=== PATIENT | female | born 1940 | race Caucasian/White ===

== ENCOUNTER → 2018-02-11 09:55 | Outpatient (CLI) | payer BC, SELFPAY ==
[2018-02-11 12:22] LABS: Erythrocyte Sedimentation Rate 3 MM/HR (0-20)
[2018-02-11 12:25] LABS: Hemoglobin A1C% w Est Avg Glu 6.1 % (4.0-6.0)
[2018-02-11 12:35] LABS: Alanine Aminotransferase 45 IU/L (9-52); Albumin 4.4 g/dL (3.5-5.0); Albumin Globulin Ratio 1.3 (1.0-2.8); Alkaline Phosphatase 94 U/L (38-126); Aspartate Aminotransferase 33 IU/L (14-36); BUN Creatinine Ratio 16.7 (6-22); Bilirubin Total 0.9 mg/dL (0.2-1.3); Blood Urea Nitrogen 10 mg/dL (7-17); Calcium 9.9 mg/dL (8.4-10.2); Carbon Dioxide 28 mmol/L (22-32); Chloride 92 mmol/L (98-107); Estimated Glomerular Filt Rate > 60.0 mL/min (>60); Globulin 3.4 g/dL (1.7-4.1); Glucose 122 mg/dL (80-110); HEMOLYSIS < 15 (0-50); Potassium 5.1 mmol/L (3.4-5.1); Sodium 133 mmol/L (137-145); Total Protein 7.8 g/dL (6.3-8.2)
[2018-02-11 13:36] LABS: C-Reactive Protein Quant < 0.5 mg/dL (<1.0)
== END ==
PROVIDERS: Family Provider Internal Medicine Rheumatology; PCP Family Medicine; Visit Provider Family Medicine
DX: M31.5 Giant cell arteritis with polymyalgia rheumatica (principal); R74.0 Nonspecific elevation of levels of transaminase and lactic acid dehydrogenase [LDH]; R73.9 Hyperglycemia, unspecified
CPT/HCPCS: 36415; 80053; 83036; 85651; 86140

== ENCOUNTER → 2018-03-12 10:17 | Outpatient (CLI) | payer BC, SELFPAY ==
--- NOTE | 2018-03-12 | DI.NM.S_ITS ---
PROCEDURE: [place] RENAL FUNCTION W LASIX RADIOPHARMACEUTICAL: 10.7 mCi Tc-99m MAG3 IV and 40 mg furosemide IV. INDICATIONS: CONJENITAL OCCLUSION TECHNIQUE: The patient was hydrated orally before the examination was begun. After intravenous administration of Tc-99m MAG3, posterior abdominal radionuclide angiogram and sequential (1 minute each frame) renal images were obtained. A time-activity curve for each kidney was generated and analyzed. To evaluate for obstruction, the patient was given 40 mg furosemide via slow intravenous injection after the start of the examination. Sequential images were obtained for up to an additional 20 minutes. COMPARISON: [facility], [place], IVP (ABD & PEL WWO CONTRAST), 01/17/2016, 12:30. [place], [place], RENAL IMAGING WITH LASIX, 02/25/2017, 9:16. [place], RENAL IMAGING WITH LASIX, 08/15/2016, 12:46. [place], [place], [place] RENAL W LASIX, 05/07/2016, 10:51. FINDINGS: Perfusion: There is normal vascular flow to both kidneys. Morphology: Left kidney is normal in size and shape. Right kidney is mildly enlarged. There is dilated right renal collecting systems. The ureters and bladder fill with tracer, and appear normal. Function: The left kidney demonstrates normal cortical tracer uptake, with uimf-[id number]-[id number] activity ranging from 3 to 5 minutes. The right kidney contributes 46.5% of total renal function. The left kidney contributes 53.5% of total renal function. Lasix stimulation: There is spontaneous clearance of tracer activity from the left kidney and normal T1/2. After diuretic administration, there is mildly delayed clearance of tracer activity from the right renal collecting systems. The half-time of emptying of tracer activity from the right pelvicaliceal system is 16 minutes. The half-time of emptying from the left pelvicaliceal system is less than 10 minutes. Normal emptying half-times are less than 10 minutes; borderline ranges are from 10 to 20 minutes. IMPRESSION: 1. 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 2. Patulous right renal pelvis with borderline T1/2 (16 min), not significantly changed from the last exam. 3. Normal left renal function. 4. Right kidney contributes 46.5% of total renal function. Left kidney contributes 53.5% of total renal function. Split renal function is essentially unchanged. Dictated by: Cheryl Diaz M.D. on 03/12/2018 at 17:24 Approved by: Cheryl Diaz M.D. on 03/12/2018 at 17:39
== END ==
PROVIDERS: Family Provider Internal Medicine Rheumatology; PCP Family Medicine; Visit Provider Specialist
DX: N13.30 Unspecified hydronephrosis (principal)
CPT/HCPCS: 78708; A9562

== ENCOUNTER → 2018-04-27 11:11 | Outpatient (CLI) | payer BC, SELFPAY ==
[2018-04-27 12:27] LABS: Add Manual Diff / Slide Review NO; Basophils Percent Auto 0.9 % (0-2); Eosinophils Percent Auto 2.9 % (2-4); Hemoglobin 14.1 g/dL (12.0-16.0); Lymphocytes Percent Auto 19.1 % (25-40); Mean Corpuscular HGB Conc 33.6 % (30-36); Mean Corpuscular Hemoglobin 30.6 PG (26-34); Mean Corpuscular Volume 91.3 fL (80-100); Monocytes Percent Auto 12.6 % (3-14); Neutrophils Absolute Auto 4900 /uL (3000-5900); Neutrophils Percent Auto 64.5 % (50-75); Platelet Count 411 X10^3/uL (150-400); Red Cell Distribution Width 14.1 % (11.6-14.8); White Blood Cell Count 7.5 X10^3/uL (4.5-11.0)
== END ==
PROVIDERS: Family Provider Internal Medicine Rheumatology; PCP Family Medicine; Visit Provider Internal Medicine Gastroenterology
DX: K92.1 Melena (principal); R10.13 Epigastric pain
CPT/HCPCS: 36415; 85025

== ENCOUNTER → 2018-05-04 10:33 | Outpatient (CLI) | payer BC, SELFPAY ==
--- NOTE | 2018-05-04 10:35 | DI.ECHO.S_ITS ---
[facility] +---------+ : : [address] : : : : [place], : : : : [place] [address] : : : : Phone: [phone] + [facility] Echocardiogram Report + + :Name: MARILEE PARKS Study Date: 05/04/2018 Height: 60 in : :[facility] Weight: 146 lb : : Gender: Female BSA: 1.6 m2 : :: 1940 Age: 78 yrs BP: 160/68 mmHg: :Reason For Study: Murmur : : Performed By: Halley Araujo : :Referring: BO TORRES : + + Interpretation Summary The ejection fraction is estimated to be 60-65%. There is mild mitral regurgitation. The aortic valve is slightly calcified. There is trace aortic regurgitation. Procedure: A two-dimensional transthoracic echocardiogram with color flow and Doppler was performed. The study quality was technically adequate. There is no prior echocardiogram noted for this patient. The patient was in normal sinus rhythm during the exam. The patient had occasional PVCs during the exam. Left Ventricle: Proximal septal thickening is noted. There is no ventricular septal defect visualized. The ejection fraction is estimated to be 60-65%. There are no focal wall motion abnormalities. Right Ventricle: The right ventricle is normal in size and function. Atria: The left atrium is mildly dilated. Right atrial size is normal. There is no Doppler evidence for an interatrial shunt. Mitral Valve: There is mild mitral annular calcification. There is mild mitral regurgitation. Aortic Valve: The aortic valve is trileaflet. The aortic valve opens well. The aortic valve is slightly calcified. There is no hemodynamically significant valvular aortic stenosis. There is trace aortic regurgitation. Tricuspid Valve: The tricuspid valve is normal in structure and function. There is a trace or physiologic amount of tricuspid regurgitation. Pulmonic Valve: The pulmonic valve is not well seen, but is grossly normal. There is mild pulmonic regurgitation. Great Vessels: The aortic root is normal size. The ascending aorta is normal in size. The aortic arch is normal in size. The IVC is of normal diameter and collapses greater than 50% with a sniff. This suggests a low right atrial pressure of 3 mm Hg. Pericardium/ Pleura There is no pericardial effusion. MMode/2D Measurements & Calculations LVIDd: 3.8 cm AoV Openin.0 cm LVIDs: 2.4 cm LVOT diam: 2.0 cm IVSd: 1.0 cm Ao root diam: 3.1 cm LVPWd: 1.0 cm Aortic Jxn: 2.2 cm LV wyatt. diameter/BSA (cm/m^2): 2.3 asc Aorta Diam: 2.9 cm LV sys. diameter/BSA (cm/m^2): 1.5 Ao Arch Diam (Prox Trans): 2.3 cm FS: 37.6 % EPSS: 0.33 cm LA A2 area: 16.7 cm2 RA long axis: 3.5 cm LA A4 area: 18.8 cm2 RA area: 9.0 cm2 LA length (vol): 4.6 cm RA vol: 19.3 ml LA vol: 57.2 ml RA : 11.8 ml/m2 LA vol index: 35.0 ml/m2 RVD1 (basal): 3.3 cm IVC diam: 0.99 cm RVD2 (mid): 2.5 cm TAPSE: 2.5 cm Doppler Measurements & Calculations Ao V2 max: 162.4 cm/sec LVOT Max Nasim: 106.9 cm/sec Ao V2 mean: 114.7 cm/sec LV V1 max P.6 mmHg Ao V2 VTI: 38.8 cm LV V1 VTI: 23.5 cm Ao max P.5 mmHg Ao mean P.7 mmHg ARIANNE(I,D): 2.0 cm2 MV E max nasim: 80.4 cm/sec ARIANNE(V,D): 2.2 cm2 MV A max nasim: 105.1 cm/sec ARIANNE indexed to BSA (cm^2/m^2): 1.2 MV E/A: 0.76 sev ratio: 0.60 Med Peak E' Nasim: 4.6 cm/sec E/E' med: 17.4 Lat Peak E' Nasim: 7.6 cm/sec E/E' lat: 10.6 E/e' average: 14.0 MV dec time: 0.27 sec TR max nasim: 238.7 cm/sec MV P1/2t: 80.5 msec TR max P.8 mmHg MVA(P1/2t): 2.7 cm2 PA V2 max: 77.7 cm/sec MR PISA radius: 0.50 cm PA V2 mean: 53.4 cm/sec PA mean P.3 mmHg PA Accel Time: 0.10 sec Reading Physician:01:46 PM
== END ==
PROVIDERS: PCP Family Medicine; Visit Provider Family Medicine
DX: I34.0 Nonrheumatic mitral (valve) insufficiency (principal); R01.1 Cardiac murmur, unspecified; I37.1 Nonrheumatic pulmonary valve insufficiency
CPT/HCPCS: 93306

== ENCOUNTER 2018-05-12 10:15 | Emergency (ER) | payer BC, SELFPAY ==
[2018-05-12 10:20] VITALS: BP 147/67; PULSE 72; RESP 16; TEMP 36.8; O2SAT 99
--- NOTE | 2018-05-12 12:03 | ED.FALL ---
HPI - Fall <Lizzy Dixon PA-C - Last Filed: 05/12/18 19:31> General Chief Complaint: Fall Stated Complaint: POSSIBLE CONCUSSION, DR TORRES WANTS CHECKED Time Seen by Provider: 05/12/18 11:46 Source: patient and old records reviewed Mode of arrival: ambulatory Limitations: no limitations History of Present Illness HPI Narrative: This 78-year-old female comes in on the advice of her PCP today due to fall, with possible concussion and facial injuries. This occurred about 24 hr ago. She states that she pivoted to avoid her dog and pitched forward, tripping on to her wood floor. She fell onto her nose, face, and frontal area, also hit her knees. She states that she was wearing her glasses, which did not break. She states that she did not pass out. She states she has had a mild headache since last night and minimal nausea, no vomiting. She denies any vision change. She states that her nose is sore and congested, no pain in her jaw or other facial bones, no difficulty chewing. She thinks nasal congestion is not new. She states that she does not have pain in her neck. She denies any weakness or paresthesia in her extremities. She denies any bowel or bladder changes or dysfunction. She states that her knees are a little bit bruised and sore, but has been able to walk just a little more slowly. Related Data Home Medications Medication Instructions Recorded Confirmed aspirin 81 mg tablet,delayed 81 mg PO DAILY 03/01/18 04/27/18 release calcium citrate PO 03/01/18 04/27/18 cholecalciferol (vitamin D3) 1,000 1,000 unit PO DAILY 03/01/18 04/27/18 unit capsule coq10 PO 03/01/18 04/27/18 krill oil 500 mg capsule mg PO cap 03/01/18 04/27/18 lisinopril 10 mg tablet 10 mg PO DAILY 03/01/18 04/27/18 multivitamin PO 03/01/18 04/27/18 citalopram 20 mg tablet 20 mg PO DAILY 04/27/18 04/27/18 Previous Rx's Medication Instructions Recorded omeprazole 40 mg OR QDAY #90 cap 12/04/17 amlodipine 10 mg PO QDAY #90 tab 12/22/17 levothyroxine 137 mcg capsule 137 mcg PO DAILY #90 cap 04/20/18 metoprolol tartrate 25 mg tablet 12.5 mg PO BID #90 tab 04/20/18 Allergies Allergy/AdvReac Type Severity Reaction Status Date / Time shellfish derived Allergy Severe MUSSELS - Verified 04/27/18 10:42 ANAPHYLAXIS amoxicillin Allergy Mild RASH, Verified 04/27/18 10:42 DIARRHEA Review of Systems <Lizzy Dixon PA-C - Last Filed: 05/12/18 19:31> Review of Systems All systems reviewed & are unremarkable except as noted in HPI and below Exam <Lizzy Dixon PA-C - Last Filed: 05/12/18 19:31> Narrative Exam Narrative: GENERAL APPEARANCE: Patient sitting comfortably, in no distress. HEENT: No scalp hematoma, PERRL, EOMI, normal ear canals, oral and nasal mucosa. Nares are patent NECK: Supple LUNGS: Clear to auscultation bilaterally. HEART: Rate and rhythm regular with I/ OLEG, normal S1 and S2, no S3 or S4. ABDOMEN: Soft, NT, ND NEUROLOGIC: Alert and oriented, normal speech, and coordination. MUSCULOSKELETAL: No point tenderness over the cervical spine or paraspinal musculature. Patient is in C-collar. She has full range of motion of the upper extremities. She has trace effusion over the right knee, mild tenderness over both knees especially over ecchymoses, no point tenderness over the joint line. Full range of motion bilaterally. DERMATOLOGIC: Bilateral periorbital ecchymoses and a faint patch of ecchymoses near the right lutheran as well as over the mid nasal bridge where there is moderate edema. Faint right knee ecchymoses laterally and a small patch on the left Initial Vital Signs Initial Vital Signs: Vital Signs Temperature 98.2 F 05/12/18 10:20 Pulse Rate 72 05/12/18 10:20 Respiratory Rate 16 05/12/18 10:20 Blood Pressure 147/67 H 05/12/18 10:20 Pulse Oximetry 99 05/12/18 10:20 <Mitra Apodaca DO - Last Filed: 05/13/18 07:54> Initial Vital Signs Initial Vital Signs: Vital Signs Temperature 98.2 F 05/12/18 10:20 Pulse Rate 72 05/12/18 10:20 Respiratory Rate 16 05/12/18 10:20 Blood Pressure 147/67 H 05/12/18 10:20 Pulse Oximetry 99 05/12/18 10:20 Course <Lizzy Dixon PA-C - Last Filed: 05/12/18 19:31> Orders Ordered: ED Orders 05/12/18 12:04 CT cervical spine wo con Stat CT facial bones wo con Stat CT head/brain wo con Stat Vital Signs - 8 hr 05/12/18 12:38 05/12/18 13:10 Pulse Rate 72 78 Respiratory Rate 15 Blood Pressure 129/51 H Blood Pressure [Left Arm] 141/55 H Pulse Oximetry 97 <Mitra Apodaca DO - Last Filed: 05/13/18 07:54> Orders Ordered: ED Orders 05/12/18 12:04 CT cervical spine wo con Stat CT facial bones wo con Stat CT head/brain wo con Stat Vital Signs - 8 hr 05/12/18 12:38 05/12/18 13:10 Pulse Rate 72 78 Respiratory Rate 15 Blood Pressure 129/51 H Blood Pressure [Left Arm] 141/55 H Pulse Oximetry 97 MDM - Fall <Lizzy Dixon PA-C - Last Filed: 05/12/18 19:31> Imaging Data CT scan - head: Radiologist's impression: [place] [address] CT Scan Report Signed Patient: Kimberly Tony MR#: [id number] : 1940 Acct:[id number] Age/Sex: 78 / F Date of Service: 05/12/18 Loc: ED Accession Number: [id number] Procedure: CT head/brain wo con Ordering Provider: Mitra Apodaca D.O. PROCEDURE: CT HEAD/BRAIN WO CON INDICATIONS: fall forward yesterday. Bilateral black eyes. Headache TECHNIQUE: Noncontrast 4.5 mm thick angled axial sections acquired from the foramen magnum to the vertex, with coronal and sagittal reformats. For radiation dose reduction, the following was used: automated exposure control, adjustment of mA and/or kV according to patient size. COMPARISON: [facility], MR, MR BRAIN WO CON, 09/03/2015, 14:50. FINDINGS: Image quality: Excellent. CSF spaces: Basal cisterns are patent. No extra-axial fluid collections. The ventricles are symmetric in size and shape. Brain: No intracranial bleeds or masses. There is cerebral volume loss for age, with resultant ventricular and sulcal prominence. There are periventricular and deep white matter chronic small vessel ischemic changes. There is intracranial internal carotid artery atherosclerosis. Skull and face: Calvarium appears intact, without suspicious lesions. Minimally displaced left nasal bone fracture noted. Sinuses: Visualized sinuses and mastoids are clear. IMPRESSION: 1. No acute intracranial disease process. 2. Minimally displaced left nasal bone fracture. Dictated by: Mar Cooper MD, PhD on 05/12/2018 at 12:25 Approved by: Mar Cooper MD, PhD on 05/12/2018 at 12:27 cervical: Radiologist's impression: CLOSE Head CT (Signed) Mar Cooper - 05/12/[address] (Signed) Mar Cooper - 05/12/18 Echocardiogram Ultrasound (Addendum) Lalo Hall - 05/04/18 Renal Scan Nuclear Medicine (Signed) Mirta Diaz - 03/12/18 [place] [address] CT Scan Report Signed Patient: Kimberly Tony MR#: [id number] : 1940 Acct:[id number] Age/Sex: 78 / F Date of Service: 05/12/18 Loc: ED Accession Number: [id number] Procedure: CT cervical spine wo con Ordering Provider: Mitra Apodaca D.O. PROCEDURE: CT CERVICAL SPINE WO CON INDICATIONS: fall forward hit face TECHNIQUE: Noncontrast 3 mm thick sections acquired from the skull base to the T4 level. Sagittal and coronal reformats were then constructed. For radiation dose reduction, the following was used: automated exposure control, adjustment of mA and/or kV according to patient size. COMPARISON: None. FINDINGS: Image quality: Excellent. Bones: No fractures or dislocations. Visualized superior ribs are intact. Spine degenerative disc disease and facet arthropathy. Soft tissues: Prevertebral soft tissues are normal in thickness. No paravertebral hematomas. No apical pneumothoraces. Vascular atherosclerotic calcifications are noted. IMPRESSION: No fracture. No acute osseous lesion. If symptoms and/or clinical suspicion for pathology persists, evaluation with MRI may be helpful for further assessment. Dictated by: Mar Cooper MD, PhD on 05/12/2018 at 12:28 Approved by: Mar Cooper MD, PhD on 05/12/2018 at 12:33 face: Radiologist's impression: View Report History [address] [address] [address] Scan Report Signed Patient: Kimberly Tony MR#: [id number] : 1940 Acct:[id number] Age/Sex: 78 / F Date of Service: 05/12/18 Loc: ED Accession Number: [id number] Procedure: CT facial bones wo con Ordering Provider: Mitra Apodaca D.O. PROCEDURE: CT FACIAL BONES WO CON INDICATIONS: fall forward hit face yesterday. Bilateral black eyes TECHNIQUE: Noncontrast 2.5 mm thick axial images acquired from the mandible through the frontal sinuses, with coronal and sagittal reformatting. For radiation dose reduction, the following was used: automated exposure control, adjustment of mA and/or kV according to patient size. COMPARISON: None. FINDINGS: Image quality: Excellent. Bones and teeth: Orbital hoskins are intact. Sinus hoskins show no fracture or deformity. Minimally displaced bilateral nasal bone fractures. Visualized portions of the mandible demonstrate no fractures or subluxation. Zygomatic arches are intact. Pterygoid plates are intact. Visualized portions of the skull base and auditory canals are intact. Cervical spine degenerative changes and facet arthropathy noted. Sinuses: Paranasal sinuses are aerated, without fluid levels, mucosal thickening, or mucoceles. Mastoid air cells are aerated. Soft tissues: No edema, masses, or fluid collections. No enlarged lymph nodes. No soft tissue lacerations or debris. Vascular: Visualized vascular structures appear normal in the absence of contrast. Bony vascular foramina and canals are intact. IMPRESSION: Bilateral nasal bone fractures. No orbit wall fracture. Dictated by: Mar Cooper MD, PhD on 05/12/2018 at 12:34 Approved by: Mar Cooper MD, PhD on 05/12/2018 at 12:45 Discharge Plan Departure Patient Disposition: Home Clinical Impression: Contusion of head, Contusion of face, Closed fracture nasal bone Discharge Date/Time: 05/12/18 13:11 Interventions: ED Discharge Assessment Last Done: 05/12/18 13:10 Instructions: DI for Concussion, DI for Nose Fracture Activity Restrictions/Additional Instructions: You do have fractures in your nasal bones, so please call [facility] (Dr. Rodriguez or 1 of his partners) here in town to schedule a follow-up visit. They may want to wait a few days to assess when the swelling goes down. There were not any other fractures or acute problems found on your CT scan, however you should return immediately as we talked about if you have any acutely worsening symptoms such as increased headache, vomiting, or new vision changes or mentation changes. I have given you instructions for concussion as you may have a mild one even though you did not lose consciousness when you fell. Prescriptions: No Action omeprazole 40 MG capsule,delayed release(DR/EC) 40 mg OR QDAY Qty: 90 RF: 2 amlodipine 10 MG tablet 10 mg PO QDAY Qty: 90 RF: 1 levothyroxine 137 mcg capsule 137 mcg PO DAILY Qty: 90 RF: 2 metoprolol tartrate 25 mg tablet 12.5 mg PO BID Qty: 90 RF: 3 multivitamin PO RF: 0 krill oil 500 mg capsule PO RF: 0 calcium citrate PO RF: 0 lisinopril 10 mg tablet 10 mg PO DAILY RF: 0 cholecalciferol (vitamin D3) 1,000 unit capsule 1,000 unit PO DAILY RF: 0 coq10 PO RF: 0 aspirin [Adult Low Dose Aspirin] 81 mg tablet,delayed release (DR/EC) 81 mg PO DAILY RF: 0 citalopram 20 mg tablet 20 mg PO DAILY RF: 0 Referrals: Bao Rodriguez MD [Physician] - Haley Torres DO [Primary Care Provider] - <Mitra Apodaca DO - Last Filed: 05/13/18 07:54> Cosign ED Attending Cosignature Attestation: I was immediately available in the department for consultation. Documentation has been reviewed. I agree with assessment and plan.
--- NOTE | 2018-05-12 12:19 | ED_ITS ---
HPI - Fall <Lizzy Dixon PA-C - Last Filed: 05/12/18 19:31> General Chief Complaint: Fall Stated Complaint: POSSIBLE CONCUSSION, DR TORRES WANTS CHECKED Time Seen by Provider: 05/12/18 11:46 Source: patient and old records reviewed Mode of arrival: ambulatory Limitations: no limitations History of Present Illness HPI Narrative: This 78-year-old female comes in on the advice of her PCP today due to fall, with possible concussion and facial injuries. This occurred about 24 hr ago. She states that she pivoted to avoid her dog and pitched forward, tripping on to her wood floor. She fell onto her nose, face, and frontal area, also hit her knees. She states that she was wearing her glasses, which did not break. She states that she did not pass out. She states she has had a mild headache since last night and minimal nausea, no vomiting. She denies any vision change. She states that her nose is sore and congested, no pain in her jaw or other facial bones, no difficulty chewing. She thinks nasal congestion is not new. She states that she does not have pain in her neck. She denies any weakness or paresthesia in her extremities. She denies any bowel or bladder changes or dysfunction. She states that her knees are a little bit bruised and sore, but has been able to walk just a little more slowly. Related Data Home Medications Medication Instructions Recorded Confirmed aspirin 81 mg tablet,delayed 81 mg PO DAILY 03/01/18 04/27/18 release calcium citrate PO 03/01/18 04/27/18 cholecalciferol (vitamin D3) 1,000 1,000 unit PO DAILY 03/01/18 04/27/18 unit capsule coq10 PO 03/01/18 04/27/18 krill oil 500 mg capsule mg PO cap 03/01/18 04/27/18 lisinopril 10 mg tablet 10 mg PO DAILY 03/01/18 04/27/18 multivitamin PO 03/01/18 04/27/18 citalopram 20 mg tablet 20 mg PO DAILY 04/27/18 04/27/18 Previous Rx's Medication Instructions Recorded omeprazole 40 mg OR QDAY #90 cap 12/04/17 amlodipine 10 mg PO QDAY #90 tab 12/22/17 levothyroxine 137 mcg capsule 137 mcg PO DAILY #90 cap 04/20/18 metoprolol tartrate 25 mg tablet 12.5 mg PO BID #90 tab 04/20/18 Allergies Allergy/AdvReac Type Severity Reaction Status Date / Time shellfish derived Allergy Severe MUSSELS - Verified 04/27/18 10:42 ANAPHYLAXIS amoxicillin Allergy Mild RASH, Verified 04/27/18 10:42 DIARRHEA Review of Systems <Lizzy Dixon PA-C - Last Filed: 05/12/18 19:31> Review of Systems All systems reviewed & are unremarkable except as noted in HPI and below Exam <Lizzy Dixon PA-C - Last Filed: 05/12/18 19:31> Narrative Exam Narrative: GENERAL APPEARANCE: Patient sitting comfortably, in no distress. HEENT: No scalp hematoma, PERRL, EOMI, normal ear canals, oral and nasal mucosa. Nares are patent NECK: Supple LUNGS: Clear to auscultation bilaterally. HEART: Rate and rhythm regular with I/ OLEG, normal S1 and S2, no S3 or S4. ABDOMEN: Soft, NT, ND NEUROLOGIC: Alert and oriented, normal speech, and coordination. MUSCULOSKELETAL: No point tenderness over the cervical spine or paraspinal musculature. Patient is in C-collar. She has full range of motion of the upper extremities. She has trace effusion over the right knee, mild tenderness over both knees especially over ecchymoses, no point tenderness over the joint line. Full range of motion bilaterally. DERMATOLOGIC: Bilateral periorbital ecchymoses and a faint patch of ecchymoses near the right christianity as well as over the mid nasal bridge where there is moderate edema. Faint right knee ecchymoses laterally and a small patch on the left Initial Vital Signs Initial Vital Signs: Vital Signs Temperature 98.2 F 05/12/18 10:20 Pulse Rate 72 05/12/18 10:20 Respiratory Rate 16 05/12/18 10:20 Blood Pressure 147/67 H 05/12/18 10:20 Pulse Oximetry 99 05/12/18 10:20 <Mitra Apodaca DO - Last Filed: 05/13/18 07:54> Initial Vital Signs Initial Vital Signs: Vital Signs Temperature 98.2 F 05/12/18 10:20 Pulse Rate 72 05/12/18 10:20 Respiratory Rate 16 05/12/18 10:20 Blood Pressure 147/67 H 05/12/18 10:20 Pulse Oximetry 99 05/12/18 10:20 Course <Lizzy Dixon PA-C - Last Filed: 05/12/18 19:31> Orders Ordered: ED Orders 05/12/18 12:04 CT cervical spine wo con Stat CT facial bones wo con Stat CT head/brain wo con Stat Vital Signs - 8 hr 05/12/18 12:38 05/12/18 13:10 Pulse Rate 72 78 Respiratory Rate 15 Blood Pressure 129/51 H Blood Pressure [Left Arm] 141/55 H Pulse Oximetry 97 <Mitra Apodaca DO - Last Filed: 05/13/18 07:54> Orders Ordered: ED Orders 05/12/18 12:04 CT cervical spine wo con Stat CT facial bones wo con Stat CT head/brain wo con Stat Vital Signs - 8 hr 05/12/18 12:38 05/12/18 13:10 Pulse Rate 72 78 Respiratory Rate 15 Blood Pressure 129/51 H Blood Pressure [Left Arm] 141/55 H Pulse Oximetry 97 MDM - Fall <Lizzy Dixon PA-C - Last Filed: 05/12/18 19:31> Imaging Data CT scan - head: Radiologist's impression: [place] [address] CT Scan Report Signed Patient: Kimberly Tnoy MR#: [id number] : 1940 Acct:[id number] Age/Sex: 78 / F Date of Service: 05/12/18 Loc: ED Accession Number: [id number] Procedure: CT head/brain wo con Ordering Provider: Mitra Apodaca D.O. PROCEDURE: CT HEAD/BRAIN WO CON INDICATIONS: fall forward yesterday. Bilateral black eyes. Headache TECHNIQUE: Noncontrast 4.5 mm thick angled axial sections acquired from the foramen magnum to the vertex, with coronal and sagittal reformats. For radiation dose reduction, the following was used: automated exposure control, adjustment of mA and/or kV according to patient size. COMPARISON: [facility], MR, MR BRAIN WO CON, 09/03/2015, 14:50. FINDINGS: Image quality: Excellent. CSF spaces: Basal cisterns are patent. No extra-axial fluid collections. The ventricles are symmetric in size and shape. Brain: No intracranial bleeds or masses. There is cerebral volume loss for age , with resultant ventricular and sulcal prominence. There are periventricular and deep white matter chronic small vessel ischemic changes. There is intracranial internal carotid artery atherosclerosis. Skull and face: Calvarium appears intact, without suspicious lesions. Minimally displaced left nasal bone fracture noted. Sinuses: Visualized sinuses and mastoids are clear. IMPRESSION: 1. No acute intracranial disease process. 2. Minimally displaced left nasal bone fracture. Dictated by: Mar Cooper MD, PhD on 05/12/2018 at 12:25 Approved by: Mar Cooper MD, PhD on 05/12/2018 at 12:27 cervical: Radiologist's impression: CLOSE Head CT (Signed) Mar Cooper - 05/12/[address] (Signed) Mar Cooper - 05/12/18 Echocardiogram Ultrasound (Addendum) Lalo Hall - 05/04/18 Renal Scan Nuclear Medicine (Signed) Mirta Diaz - 03/12/18 View [place] [address] CT Scan Report Signed Patient: Kimberly Tony MR#: [id number] : 1940 Acct:[id number] Age/Sex: 78 / F Date of Service: 05/12/18 Loc: ED Accession Number: [id number] Procedure: CT cervical spine wo con Ordering Provider: Mitra Apodaca D.O. PROCEDURE: CT CERVICAL SPINE WO CON INDICATIONS: fall forward hit face TECHNIQUE: Noncontrast 3 mm thick sections acquired from the skull base to the T4 level. Sagittal and coronal reformats were then constructed. For radiation dose reduction, the following was used: automated exposure control, adjustment of mA and/or kV according to patient size. COMPARISON: None. FINDINGS: Image quality: Excellent. Bones: No fractures or dislocations. Visualized superior ribs are intact. Spine degenerative disc disease and facet arthropathy. Soft tissues: Prevertebral soft tissues are normal in thickness. No paravertebral hematomas. No apical pneumothoraces. Vascular atherosclerotic calcifications are noted. IMPRESSION: No fracture. No acute osseous lesion. If symptoms and/or clinical suspicion for pathology persists, evaluation with MRI may be helpful for further assessment. Dictated by: Mar Cooper MD, PhD on 05/12/2018 at 12:28 Approved by: Mar Cooper MD, PhD on 05/12/2018 at 12:33 face: Radiologist's impression: View Report History [address] [address] [address] Scan Report Signed Patient: Kimberly Tony MR#: [id number] : 1940 Acct:[id number] Age/Sex: 78 / F Date of Service: 05/12/18 Loc: ED Accession Number: [id number] Procedure: CT facial bones wo con Ordering Provider: Mitra Apodaca D.O. PROCEDURE: CT FACIAL BONES WO CON INDICATIONS: fall forward hit face yesterday. Bilateral black eyes TECHNIQUE: Noncontrast 2.5 mm thick axial images acquired from the mandible through the frontal sinuses, with coronal and sagittal reformatting. For radiation dose reduction, the following was used: automated exposure control, adjustment of mA and/or kV according to patient size. COMPARISON: None. FINDINGS: Image quality: Excellent. Bones and teeth: Orbital hoskins are intact. Sinus hoskins show no fracture or deformity. Minimally displaced bilateral nasal bone fractures. Visualized portions of the mandible demonstrate no fractures or subluxation. Zygomatic arches are intact. Pterygoid plates are intact. Visualized portions of the skull base and auditory canals are intact. Cervical spine degenerative changes and facet arthropathy noted. Sinuses: Paranasal sinuses are aerated, without fluid levels, mucosal thickening, or mucoceles. Mastoid air cells are aerated. Soft tissues: No edema, masses, or fluid collections. No enlarged lymph nodes. No soft tissue lacerations or debris. Vascular: Visualized vascular structures appear normal in the absence of contrast. Bony vascular foramina and canals are intact. IMPRESSION: Bilateral nasal bone fractures. No orbit wall fracture. Dictated by: Mar Cooper MD, PhD on 05/12/2018 at 12:34 Approved by: Mar Cooper MD, PhD on 05/12/2018 at 12:45 Discharge Plan Departure Patient Disposition: Home Clinical Impression: Contusion of head, Contusion of face, Closed fracture nasal bone Discharge Date/Time: 05/12/18 13:11 Interventions: ED Discharge Assessment Last Done: 05/12/18 13:10 Instructions: DI for Concussion, DI for Nose Fracture Activity Restrictions/Additional Instructions: You do have fractures in your nasal bones, so please call [facility] (Dr. Rodriguez or 1 of his partners) here in town to schedule a follow-up visit. They may want to wait a few days to assess when the swelling goes down. There were not any other fractures or acute problems found on your CT scan, however you should return immediately as we talked about if you have any acutely worsening symptoms such as increased headache, vomiting, or new vision changes or mentation changes. I have given you instructions for concussion as you may have a mild one even though you did not lose consciousness when you fell. Prescriptions: No Action omeprazole 40 MG capsule,delayed release(DR/EC) 40 mg OR QDAY Qty: 90 RF: 2 amlodipine 10 MG tablet 10 mg PO QDAY Qty: 90 RF: 1 levothyroxine 137 mcg capsule 137 mcg PO DAILY Qty: 90 RF: 2 metoprolol tartrate 25 mg tablet 12.5 mg PO BID Qty: 90 RF: 3 multivitamin PO RF: 0 krill oil 500 mg capsule PO RF: 0 calcium citrate PO RF: 0 lisinopril 10 mg tablet 10 mg PO DAILY RF: 0 cholecalciferol (vitamin D3) 1,000 unit capsule 1,000 unit PO DAILY RF: 0 coq10 PO RF: 0 aspirin [Adult Low Dose Aspirin] 81 mg tablet,delayed release (DR/EC) 81 mg PO DAILY RF: 0 citalopram 20 mg tablet 20 mg PO DAILY RF: 0 Referrals: Bao Rodriguez MD [Physician] - Haley Torres DO [Primary Care Provider] - <Mitra Apodaca DO - Last Filed: 05/13/18 07:54> Cosign ED Attending Cosignature Attestation: I was immediately available in the department for consultation. Documentation has been reviewed. I agree with assessment and plan.
[2018-05-12 12:38] VITALS: BP 141/55; PULSE 72
[2018-05-12 13:10] VITALS: BP 129/51; PULSE 78; RESP 15; O2SAT 97
== END 2018-05-12 13:11 | disposition home or self-care (01) ==
PROVIDERS: Emergency Provider Internal Medicine; PCP Family Medicine
DX: S02.2XXA Fracture of nasal bones, initial encounter for closed fracture (principal); S00.93XA Contusion of unspecified part of head, initial encounter; S00.83XA Contusion of other part of head, initial encounter; W01.0XXA Fall on same level from slipping, tripping and stumbling without subsequent striking against object, initial encounter
CPT/HCPCS: 70450; 70486; 72125; 99282; 99284

== ENCOUNTER → 2018-06-12 11:49 | Outpatient (CLI) | payer BC, SELFPAY ==
[2018-06-12 12:12] LABS: Appearance Urine UA TURBID; Bilirubin Urine UA NEGATIVE (NEGATIVE); Color Urine UA YELLOW; Glucose Urine UA NEGATIVE (Normal); Ketones Urine UA TRACE (NEGATIVE); Leukocyte Esterase Urine UA 2+ (NEGATIVE); Nitrite Urine UA POSITIVE (Negative); Occult Blood Urine UA 3+ (Negative); Protein Urine UA 2+ (Negative); Urobilinogen Urine UA 0.2 E.U./dL (0.2)
[2018-06-12 14:52] LABS: RBC Urine 1-5/HPF (0-5/HPF)
[2018-06-12 14:53] LABS: Bacteria Urine Many (>30); Culture Indicated Urine Specimen Cultured; Squamous Epithelial Cell Urine 0-1 /HPF; WBC Urine >100/HPF (0-5/HPF)
== END ==
PROVIDERS: PCP Family Medicine; Visit Provider Specialist
DX: N39.0 Urinary tract infection, site not specified (principal)
CPT/HCPCS: 81001; 87077; 87086; 87186

== ENCOUNTER → 2019-02-16 10:53 | Outpatient (CLI) | payer BC, SELFPAY ==
[2019-02-20 18:39] LABS: Fecal Immunochemical Test NOT DETECTED (NOT DETECTED)
== END ==
PROVIDERS: PCP Family Medicine; Visit Provider Family Medicine
DX: Z12.11 Encounter for screening for malignant neoplasm of colon (principal)
CPT/HCPCS: 82274

== ENCOUNTER → 2019-03-02 09:43 | Outpatient (CLI) | payer BC, SELFPAY ==
--- NOTE | 2019-03-02 | DI.MG.S_ITS ---
BILATERAL DIGITAL SCREENING MAMMOGRAM 3D/2D WITH CAD: 03/02/2019 CLINICAL: Routine screening. Comparison is made to exams dated: 12/26/2017 mammogram, 04/10/2017 mammogram, 02/18/2016 mammogram, 05/14/2015 mammogram, 05/12/2014 mammogram, and 05/04/2013 mammogram - [facility]. There are scattered fibroglandular elements in both breasts. Current study was also evaluated with a Computer Aided Detection (CAD) system. No significant masses, calcifications, or other findings are seen in either breast. There has been no significant interval change. IMPRESSION: NEGATIVE There is no mammographic evidence of malignancy. A 1 year screening mammogram is recommended. This exam was interpreted at Station ID: [id number]. NOTE: For mammograms, a report in lay terms will be sent to the patient. Approximately 15% of breast malignancies will not be visualized mammographically. In the management of a palpable breast mass, a negative mammogram must not discourage biopsy of a clinically suspicious lesion. Electronically Signed By: Mathew conklin/dulce:03/02/2019 10:27:36 letter sent: Normal Exam ACR BI-RADS Category 1: Negative [id number]
== END ==
PROVIDERS: PCP Family Medicine; Visit Provider Family Medicine
DX: Z12.31 Encounter for screening mammogram for malignant neoplasm of breast (principal)
CPT/HCPCS: 77063; 77067

== ENCOUNTER → 2019-03-07 10:00 | Outpatient (CLI) | payer BC, SELFPAY ==
[2019-03-07 10:58] LABS: Add Manual Diff / Slide Review NO; Basophils Absolute Auto 100 /uL (0-100); Basophils Percent Auto 1.1 % (0-2); Eosinophils Absolute Auto 300 /uL (0-450); Eosinophils Percent Auto 5.6 % (2-4); Hematocrit 42.6 % (36-46); Hemoglobin 14.2 g/dL (12.0-16.0); Lymphocytes Absolute Auto 1000 /uL (1100-4500); Lymphocytes Percent Auto 16.3 % (25-40); Mean Corpuscular HGB Conc 33.4 % (30-36); Mean Corpuscular Hemoglobin 30.1 PG (26-34); Mean Corpuscular Volume 89.9 fL (80-100); Monocytes Absolute Auto 900 /uL (0-900); Monocytes Percent Auto 14.8 % (3-14); Neutrophils Absolute Auto 3800 /uL (1500-7000); Neutrophils Percent Auto 62.2 % (50-75); Platelet Count 379 X10^3/uL (150-400); Red Blood Cell Count 4.73 X10^6/uL (4.0-5.2); Red Cell Distribution Width 14.1 % (11.6-14.8); White Blood Cell Count 6.1 X10^3/uL (4.5-11.0)
[2019-03-07 11:19] LABS: Alanine Aminotransferase 47 IU/L (9-52); Albumin 4.3 g/dL (3.5-5.0); Albumin Globulin Ratio 1.2 (1.0-2.8); Alkaline Phosphatase 94 U/L (38-126); Aspartate Aminotransferase 46 IU/L (14-36); Bilirubin Total 0.7 mg/dL (0.2-1.3); Blood Urea Nitrogen 11 mg/dL (7-17); Calcium 9.4 mg/dL (8.4-10.2); Carbon Dioxide 28 mmol/L (22-32); Chloride 94 mmol/L (98-107); Estimated Glomerular Filt Rate > 60.0 mL/min (>60); Globulin 3.5 g/dL (1.7-4.1); Glucose 117 mg/dL (80-110); HEMOLYSIS < 15 (0-50); Potassium 4.4 mmol/L (3.4-5.1); Sodium 133 mmol/L (137-145); Total Protein 7.8 g/dL (6.3-8.2)
[2019-03-07 11:33] LABS: TSH w/ Reflex to FT4 0.39 uIU/mL (0.47-4.68)
[2019-03-07 14:22] LABS: Free T4, Direct Thyroxine 1.77 ng/dL (0.78-2.19)
== END ==
PROVIDERS: PCP Family Medicine; Visit Provider Family Medicine
DX: E89.0 Postprocedural hypothyroidism (principal); I10 Essential (primary) hypertension; R73.03 Prediabetes
CPT/HCPCS: 36415; 80053; 84439; 84443; 85025

== ENCOUNTER 2019-05-09 22:48 | Emergency (ER) | payer BC, SELFPAY ==
[2019-05-09 22:50] VITALS: BP 136/63; PULSE 80; RESP 14; TEMP 36.9; O2SAT 97; BMI 27.1
--- NOTE | 2019-05-09 22:59 | DI.RAD.S_ITS ---
PROCEDURE: XR ANKLE RT MIN 3V INDICATIONS: fall, lateral ankle pain/swelling TECHNIQUE: Pre-views of the ankle were acquired. COMPARISON: None. FINDINGS: Bones: Subtle cortical irregularity involving lateral cortex of lateral malleolus is seen, suspicious for a nondisplaced fracture. No other fracture or dislocation is seen. Ankle mortise is normally aligned. No suspicious bony lesions. Soft tissues: No tibiotalar joint effusion. Achilles tendon appears normal. Marked ankle soft tissue swelling is seen particularly over lateral malleolus IMPRESSION: Findings concerning for a subtle nondisplaced lateral malleolus fracture with overlying soft tissue swelling. Intact ankle mortise. Dictated by: Mikal Guerrero M.D. on 05/10/2019 at 9:28 Approved by: Mikal Guerrero M.D. on 05/10/2019 at 9:30
--- NOTE | 2019-05-09 23:08 | DI.RAD.S_ITS ---
PROCEDURE: XR FOOT RT MIN 3V INDICATIONS: foot injury, ecchymosis, pain TECHNIQUE: 3 views of the foot were acquired. COMPARISON: None. 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 Hammertoe deformity involving second toe is noted. No gross acute right foot fracture or dislocation. Soft tissues: No tibiotalar joint effusion. Achilles tendon appears normal. Soft tissue swelling around ankle joint is noted. 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 Second toe hammertoe deformity. No definite acute right foot fracture or dislocation. Ankle soft tissue swelling. Dictated by: Mikal Guerrero M.D. on 05/10/2019 at 9:31 Approved by: Mikal Guerrero M.D. on 05/10/2019 at 9:32
--- NOTE | 2019-05-09 23:24 | ED.LOWEXIN ---
HPI - Extremity Injury (Lower) General Chief Complaint: Extremity Injury, Lower Stated Complaint: RIGHT FOOT SWELLING Time Seen by Provider: 05/09/19 22:51 Source: patient and family Mode of arrival: ambulatory Limitations: no limitations History of Present Illness HPI Narrative: 79-year-old female nonsmoker with hypertension presents with pain and swelling in her right ankle. She was walking on uneven ground earlier today when her dog pulled her off the trail and she stepped awkwardly. Initially she had very little in the way of pain but as the day has worn on she has developed increasing swelling, pain and bruising. Her pain is worse with ambulation and improves with rest. She denies numbness, tingling or weakness. complaint: ankle injury Onset (ago): hour(s) Type of Injury: unknown Place: street/outdoors Severity: moderate Relieving factors: nothing Exacerbating factors: weight bearing Context: walking Associated symptoms: swelling, able to partially bear weight and ambulatory Other symptoms: none Related Data Home Medications Medication Instructions Recorded Confirmed aspirin 81 mg tablet,delayed 81 mg PO DAILY 03/01/18 12/29/18 release calcium citrate PO 03/01/18 12/29/18 cholecalciferol (vitamin D3) 1,000 1,000 unit PO DAILY 03/01/18 12/29/18 unit capsule coq10 PO 03/01/18 12/29/18 krill oil 500 mg capsule mg PO cap 03/01/18 12/29/18 multivitamin PO 03/01/18 12/29/18 Previous Rx's Medication Instructions Recorded amlodipine 10 mg tablet 10 mg PO QDAY #90 tab 07/05/18 lisinopril 10 mg tablet 10 mg PO DAILY #90 tab 10/11/18 citalopram 20 mg tablet 20 mg PO DAILY #90 tab 02/14/19 levothyroxine 125 mcg capsule 125 mcg PO DAILY #90 cap 03/15/19 metoprolol tartrate 25 mg tablet 12.5 mg PO BID #90 tab 03/25/19 omeprazole 40 mg capsule,delayed 40 mg PO QDAY #90 cap 03/25/19 release Allergies Allergy/AdvReac Type Severity Reaction Status Date / Time shellfish derived Allergy Severe MUSSELS - Verified 12/29/18 11:19 ANAPHYLAXIS amoxicillin Allergy Mild RASH, Verified 12/29/18 11:19 DIARRHEA nitrofurantoin AdvReac Severe diarrhea,vomiting, Verified 12/29/18 11:19 rectal bleeding Review of Systems Constitutional Denies chills, Denies fever(s), Denies lethargy and Denies weakness Eyes Denies change in vision, Denies eye discharge, Denies irritation and Denies loss of vision ENT Ears, Nose, Mouth, and Throat: Denies change in voice, Denies neck pain and Denies sore throat Cardiovascular Denies chest pain, Denies irregular heart rhythm, Denies lightheadedness, Denies palpitations, Denies dyspnea, Denies dyspnea on exertion and Denies orthopnea Respiratory Denies cough, Denies dyspnea, Denies dyspnea on exertion and Denies wheezing Gastrointestinal Gastrointestinal: Denies abdominal pain, Denies change in bowel habits, Denies diarrhea, Denies nausea and Denies vomiting Genitourinary Denies hematuria, Denies flank pain, Denies urinary incontinence and Denies urinary urgency Musculoskeletal Reports joint swelling, Reports limited range of motion and Denies neck pain Integumentary/Breasts Denies pruritus, Denies erythema, Denies rash and Denies wounds Neurologic Denies confusion, Denies loss of vision and Denies weakness Psychiatric Denies anxiety, Denies confusion, Denies depression, Denies homicidal ideation and Denies suicidal ideation Endocrine Denies palpitations Hematologic/Lymphatic Denies easy bruising Allergic/Immunologic Denies wheezing [facility] Medical History Anxiety (Chronic 2013) Congenital stricture of urethra (Chronic) Depression (Chronic 2013) Giant cell arteritis (Chronic) Graves' disease (Chronic) Hayfever (Chronic) Hypertension (Chronic) Hypothyroidism (Chronic) Shoulder pain (Chronic 2014) 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) Cataract (Resolved 2015) Colon polyps (Resolved) Precancerous skin lesion (Resolved ~2006) Tinnitus (Resolved 2009) Surgical History Anesthesia (Resolved) H/O hysterectomy for benign disease (Resolved 1994) History of abdominoplasty (Resolved 1981) History of bilateral tubal ligation (Resolved 1969) History of cataract surgery (Resolved 2014) History of section (Resolved 1969) History of cholecystectomy (Resolved) History of partial hysterectomy (Resolved 1989) History of tonsillectomy (Resolved 1945) History of ureter repair (Resolved 2013) Hx of thyroid irradiation (Resolved 1989) Status post tubal ligation Family History Brother Heart disease Brother Emphysema of lung Family/Other Influenza Father Heart attack Grandmother Esophageal cancer Mother Esophageal cancer Grandfather Heart attack Sister Pancreatic cancer Unknown Heart disease Smoker Grandfather No problems noted. Grandmother No problems noted. Social History marital status: occupational status: other (Retired from the [employer]) Smoking Status: Never smoker alcohol intake: current substance use type: does not use Family History Brother Heart disease Brother Emphysema of lung Family/Other Influenza Father Heart attack Grandmother Esophageal cancer Mother Esophageal cancer Grandfather Heart attack Sister Pancreatic cancer Unknown Heart disease Smoker Grandfather No problems noted. Grandmother No problems noted. Social History marital status: occupational status: other (Retired from the [employer]) Smoking Status: Never smoker alcohol intake: current substance use type: does not use Exam Narrative Exam Narrative: GEN: AOx3 and in mild distress EYES: Pupils are equal, round, and reactive to light and accommodation. Extraoccular muscles are intact bilaterally. There is no subconjunctival hemorrhage or exudate. CHEST: Lungs are clear to auscultation bilaterally and free of wheezes, rales, or rhonchi. Heart rate is regular rhythm, there are no murmurs, clicks, rubs, or gallops. There is no chest wall tenderness. ABD: Abdomen is soft and nontender. There is no guarding or rebound. Bowel sounds are normal in all 4 quadrants. There is no mass or organomegaly. EXT: Full but painful range of motion of the right ankle, notable swelling and ecchymosis over lateral malleolus and lateral foot. Closed, isolated and neurovascularly intact. SKIN: Warm, pink, and dry. No erythema or rash Initial Vital Signs Initial Vital Signs: Vital Signs Temperature 98.4 F 05/09/19 22:50 Pulse Rate 80 05/09/19 22:50 Respiratory Rate 14 05/09/19 22:50 Blood Pressure 136/63 05/09/19 22:50 Pulse Oximetry 97 05/09/19 22:50 Procedures Orthopedic Splinting/Casting Injury #1: Side: right Lower Extremity Injury Location: ankle Lower Extremity Immobilizer: Darshan wrap Post splinting neuro exam: intact Post splinting vascular exam: intact Placed by: Nursing Course Orders Ordered: ED Orders 05/09/19 22:59 XR ankle RT min 3V Stat 05/09/19 23:08 XR foot RT min 3V Stat Vital Signs - 8 hr 05/09/19 22:50 05/09/19 23:52 05/10/19 00:02 Temperature 98.4 F Pulse Rate 80 77 78 Respiratory Rate 14 Blood Pressure 136/63 Blood Pressure [Right Arm] 133/67 118/53 L Pulse Oximetry 97 98 93 MDM - Extremity Injury (Lower) Imaging Data Ankle / Foot: My impression: No Fx Radiologist's impression: No fx Discharge Plan Departure Patient Disposition: Home Clinical Impression: Ankle sprain Qualifiers: Encounter type: initial encounter Involved ligament of ankle: unspecified ligament Laterality: right Qualified Code(s): S93.401A - Sprain of unspecified ligament of right ankle, initial encounter Instructions: DI for Ankle Sprain Activity Restrictions/Additional Instructions: *You have been diagnosed with [right ankle sprain] *What to do: *Take medications as directed: Tylenol and Motrin for pain and swelling *Follow up with your primary care provider in 2-3 days, call for an appointment. Let them know you were seen in the Emergency Department and that we ask that you be seen in follow up *Return to ER if you should have any new, worsening or concerning symptoms * rest, ice, elevate can help make you feel better, while early range of motion can make you better more quickly Prescriptions: No Action levothyroxine 125 mcg capsule 125 mcg PO DAILY Qty: 90 RF: 3 amlodipine 10 mg tablet 10 mg PO QDAY Qty: 90 RF: 3 lisinopril 10 mg tablet 10 mg PO DAILY Qty: 90 RF: 3 citalopram 20 mg tablet 20 mg PO DAILY Qty: 90 RF: 0 omeprazole 40 mg capsule,delayed release(DR/EC) 40 mg PO QDAY Qty: 90 RF: 3 metoprolol tartrate 25 mg tablet 12.5 mg PO BID Qty: 90 RF: 3 multivitamin PO RF: 0 krill oil 500 mg capsule PO RF: 0 calcium citrate PO RF: 0 cholecalciferol (vitamin D3) 1,000 unit capsule 1,000 unit PO DAILY RF: 0 coq10 PO RF: 0 aspirin [Adult Low Dose Aspirin] 81 mg tablet,delayed release (DR/EC) 81 mg PO DAILY RF: 0 Referrals: Haley Dewey DO [Primary Care Provider] -
[2019-05-09 23:52] VITALS: BP 133/67; PULSE 77; O2SAT 98
[2019-05-10 00:02] VITALS: BP 118/53; PULSE 78; O2SAT 93
== END 2019-05-10 00:40 | disposition home or self-care (01) ==
PROVIDERS: Emergency Provider Emergency Medicine; PCP Family Medicine
DX: S93.401A Sprain of unspecified ligament of right ankle, initial encounter (principal)
CPT/HCPCS: 73610; 73630; 99283

== ENCOUNTER 2019-05-11 11:54 | Emergency (ER) | payer BC, SELFPAY ==
[2019-05-11 12:01] VITALS: BP 131/56; PULSE 73; RESP 14; TEMP 36.9; O2SAT 99; BMI 27.1
--- NOTE | 2019-05-11 12:28 | ED_ITS ---
HPI - Extremity Injury (Lower) <Lizzy Dixon PA-C - Last Filed: 05/11/19 21:01> General Chief Complaint: Extremity Injury, Lower Stated Complaint: RT KNEE AND ANKLE PAIN/LT LEG BRUISED Time Seen by Provider: 05/11/19 12:04 Source: patient Mode of arrival: ambulatory Limitations: no limitations History of Present Illness HPI Narrative: This 79-year-old female was pulled [place] by her puppy late Thursday night, landing on her knees and ankles on rocks. She was seen here and right foot and ankle x-ray, found to have nondisplaced possible subtle ankle fracture. She has been using Darshan wrap. She states that she has been trying to bear weight but has to hobble as it is very painful. She states that pain has been increasing in the right ankle and also in the right lower leg and knee where she also hit the rocks. She has had swelling in the knee and is concerned about injury there as well. She states she has some pain on the left side of the knee but less severe and easier to move. She does have an appointment with Orthopedics a week from today, but concerned that other injury and how to control pain. She denies head contusion, LOC or any other injury. She has not been taking any pain medication. Related Data Home Medications Medication Instructions Recorded Confirmed aspirin 81 mg tablet,delayed 81 mg PO DAILY 03/01/18 05/11/19 release calcium citrate 1 tab PO DAILY 03/01/18 12/29/18 cholecalciferol (vitamin D3) 1,000 1,000 unit PO DAILY 03/01/18 12/29/18 unit capsule coq10 1 tab PO DAILY 03/01/18 12/29/18 krill oil 500 mg capsule 500 mg PO DAILY cap 03/01/18 12/29/18 amlodipine 10 mg PO DAILY 05/11/19 05/11/19 levothyroxine 125 mcg PO DAILY 05/11/19 05/11/19 multivitamin 1 tab PO DAILY 05/11/19 05/11/19 omeprazole 40 mg PO DAILY 05/11/19 05/11/19 Previous Rx's Medication Instructions Recorded lisinopril 10 mg tablet 10 mg PO DAILY #90 tab 10/11/18 citalopram 20 mg tablet 20 mg PO DAILY #90 tab 02/14/19 metoprolol tartrate 25 mg tablet 12.5 mg PO BID #90 tab 03/25/19 Allergies Allergy/AdvReac Type Severity Reaction Status Date / Time shellfish derived Allergy Severe MUSSELS - Verified 05/11/19 12:01 ANAPHYLAXIS amoxicillin Allergy Mild RASH, Verified 05/11/19 12:01 DIARRHEA nitrofurantoin AdvReac Severe diarrhea,vomiting, Verified 05/11/19 12:01 rectal bleeding Review of Systems <Lizzy Dixon PA-C - Last Filed: 05/11/19 21:01> Review of Systems ROS Unobtainable: All systems reviewed & are unremarkable except as noted in HPI and below PFSH <Lizzy Dixon PA-C - Last Filed: 05/11/19 21:01> Medical History Anxiety (Chronic 2013) 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) Cataract (Resolved 2015) Colon polyps (Resolved) Congenital stricture of urethra (Chronic) Depression (Chronic 2013) Giant cell arteritis (Chronic) Graves' disease (Chronic) Hayfever (Chronic) Hypertension (Chronic) Hypothyroidism (Chronic) Precancerous skin lesion (Resolved ~2006) Shoulder pain (Chronic 2014) Tinnitus (Resolved 2009) Surgical History Anesthesia (Resolved) H/O hysterectomy for benign disease (Resolved 1994) History of abdominoplasty (Resolved 1981) History of bilateral tubal ligation (Resolved 1969) History of cataract surgery (Resolved 2014) History of section (Resolved 1969) History of cholecystectomy (Resolved) History of partial hysterectomy (Resolved 1989) History of tonsillectomy (Resolved 1945) History of ureter repair (Resolved 2013) Hx of thyroid irradiation (Resolved 1989) Status post tubal ligation Family History Brother Heart disease Brother Emphysema of lung Family/Other Influenza Father Heart attack Grandmother Esophageal cancer Mother Esophageal cancer Grandfather Heart attack Sister Pancreatic cancer Unknown Heart disease Smoker Grandfather No problems noted. Grandmother No problems noted. Social History marital status: occupational status: other (Retired from the [employer]) Smoking Status: Never smoker alcohol intake: current substance use type: does not use Social History marital status: occupational status: other (Retired from the [employer]) Smoking Status: Never smoker alcohol intake: current substance use type: does not use Exam <Lizzy Dixon PA-C - Last Filed: 05/11/19 21:01> Narrative Exam Narrative: GENERAL APPEARANCE: Patient sitting comfortably, in no distress. LUNGS: Clear to auscultation bilaterally. HEART: Rate and rhythm regular without murmur, normal S1 and S2, no S3 or S4. DERMATOLOGIC: Extensive ecchymoses bilateral lower legs, right foot and ankle EXTREMITIES: No cyanosis, pedal pulses intact MUSCULOSKELETAL: Tender throughout the right ankle, mid to superior tib-fib, and throughout the right knee joint. Limited right knee and right ankle range of motion secondary to tenderness. No point tenderness over the right foot. No point tenderness over the left foot, ankle, or tib-fib. Moderate tenderness over left medial knee joint line. She has full range of motion of left ankle and knee without tenderness Initial Vital Signs Initial Vital Signs: Vital Signs Temperature 98.4 F 05/11/19 12:01 Pulse Rate 73 05/11/19 12:01 Respiratory Rate 14 05/11/19 12:01 Blood Pressure 131/56 L 05/11/19 12:01 Pulse Oximetry 99 05/11/19 12:01 <Lyn Bazzi DO - Last Filed: 05/14/19 05:45> Initial Vital Signs Initial Vital Signs: Vital Signs Temperature 98.4 F 05/11/19 12:01 Pulse Rate 73 05/11/19 12:01 Respiratory Rate 14 05/11/19 12:01 Blood Pressure 131/56 L 05/11/19 12:01 Pulse Oximetry 99 05/11/19 12:01 Course <Lizzy Dixon PA-C - Last Filed: 05/11/19 21:01> Course Additional Information: Patient was able to ambulate much more comfortably with gel splint and knee immobilizer. She did not have any new findings on x-rays today. She will keep her follow-up appointment with Orthopedics next week. Orders Ordered: ED Orders 05/11/19 12:52 XR ankle RT min 3V Stat XR knee LT 3V Stat XR knee RT 3V Stat XR tibia fibula RT 2V Stat Vital Signs Vital signs: Vital Signs - 8 hr 05/11/19 14:34 Pulse Rate 81 Respiratory Rate 16 Blood Pressure 129/67 Pulse Oximetry 100 <Lyn Bazzi, DO - Last Filed: 05/14/19 05:45> Orders Ordered: ED Orders 05/11/19 12:52 XR ankle RT min 3V Stat XR knee LT 3V Stat XR knee RT 3V Stat XR tibia fibula RT 2V Stat Vital Signs Vital signs: Vital Signs - 8 hr 05/11/19 14:34 Pulse Rate 81 Respiratory Rate 16 Blood Pressure 129/67 Pulse Oximetry 100 Discharge Plan Departure Patient Disposition: Home Clinical Impression: Closed right fibular fracture Qualifiers: Encounter type: subsequent encounter Fibula location: distal Fracture morphology: unspecified fracture morphology Fracture healing: with routine healing Qualified Code(s): S82.831D - Other fracture of upper and lower end of right fibula, subsequent encounter for closed fracture with routine healing Contusion of right knee and lower leg Qualifiers: Encounter type: initial encounter Qualified Code(s): S80.01XA - Contusion of right knee, initial encounter Knee osteoarthritis Qualifiers: Osteoarthritis type: primary Laterality: right Qualified Code(s): M17.11 - Unilateral primary osteoarthritis, right knee Discharge Date/Time: 05/11/19 14:38 Instructions: DI for Ankle Fracture, DI for Knee Pain Activity Restrictions/Additional Instructions: You have a small break in the little bone on the outside of the leg near the ankle. It is not out of place. There were no other fractures found on her x- rays today, however you do have significant arthritis in your knee which was likely exacerbated by the fall. Please wear the ankle immobilizer splint at all times when you are bearing any weight, and also wear the knee immobilizer for as long as needed to help with comfort and weight-bearing. Use your walker as needed. You can take 1 Aleve twice daily for the next 2 or 3 days, then as n eeded since this seems to help your pain the most. Try adding Tylenol arthritis Strength or 8 hour (650 mg per tablet), 1 every 8 hours to see if this helps pain. You can also use topical patches or medicine as needed. Please follow up with Orthopedics as you have planned next week and see your PCP as needed in the interim. Good luck with your puppy and thank you for your patience in our busy emergency department today. Prescriptions: No Action lisinopril 10 mg tablet 10 mg PO DAILY Qty: 90 RF: 3 citalopram 20 mg tablet 20 mg PO DAILY Qty: 90 RF: 0 metoprolol tartrate 25 mg tablet 12.5 mg PO BID Qty: 90 RF: 3 krill oil 500 mg capsule 500 mg PO DAILY RF: 0 calcium citrate 1 tab PO DAILY RF: 0 cholecalciferol (vitamin D3) 1,000 unit capsule 1,000 unit PO DAILY RF: 0 coq10 1 tab PO DAILY RF: 0 aspirin [Adult Low Dose Aspirin] 81 mg tablet,delayed release (DR/EC) 81 mg PO DAILY RF: 0 levothyroxine 125 mcg tablet 125 mcg PO DAILY RF: 0 multivitamin Tablet 1 tab PO DAILY RF: 0 omeprazole 40 mg capsule,delayed release(DR/EC) 40 mg PO DAILY RF: 0 amlodipine 10 mg tablet 10 mg PO DAILY RF: 0 Referrals: Swetha Forte MD [Family Provider] - Haley Dewey DO [Primary Care Provider] -
[2019-05-11 12:46] VITALS: PULSE 70
--- NOTE | 2019-05-11 12:52 | DI.RAD.S_ITS ---
PROCEDURE: XR KNEE RT 3V INDICATIONS: pain/swelling s/p fall TECHNIQUE: 3 views of the knee were acquired. COMPARISON: [facility], , KNEE 1-2 VIEWS RIGHT, 10/03/2008, 9:13. [facility], , KNEE 3V RIGHT, 08/15/2008, 10:52. FINDINGS: Bones: No displaced fractures or dislocations of the right knee are present. There are moderate to severe degenerative changes of the knee, best appreciated within the patellofemoral compartment. No suspicious osseous lesions are identified. Soft tissues: There is a large knee joint effusion. There may be chondrocalcinosis of the medial and lateral compartments of the knee. Prepatellar soft tissue edema is noted. IMPRESSION: 1. No displaced fractures. 2. Moderate to severe degenerative changes of the knee. 3. Prominent knee joint effusion. Dictated by: Shabbir Alcantara M.D. on 05/11/2019 at 12:54 Approved by: Shabbir Alcantara M.D. on 05/11/2019 at 12:55
--- NOTE | 2019-05-11 12:52 | DI.RAD.S_ITS ---
PROCEDURE: XR KNEE LT 3V INDICATIONS: medial pain s/p fall TECHNIQUE: 3 views of the knee were acquired. COMPARISON: [facility], , KNEE 1-2 VIEWS RIGHT, 10/03/2008, 9:13. [facility], , KNEE 3V RIGHT, 08/15/2008, 10:52. FINDINGS: Bones: No displaced fracture or dislocation is identified involving the left knee. There is slight bony prominence involving the medial aspect of the proximal tibial diametaphysis, which is similar to the previous examination and may be represent a sessile type osteochondroma. Mild to moderate degenerative changes of the knee are most pronounced within the medial compartment. Soft tissues: No joint effusion. No suspicious soft tissue calcifications. There is an enthesophyte at the distal quadriceps tendon. Prominent patellar thickening appears to be present. IMPRESSION: 1. No acute fractures. 2. Mild to moderate degenerative changes of the knee. 3. Bony prominence along the medial aspect of the proximal tibia is unchanged since 2008, suggesting a benign process. 4. Probable patellar tendinopathy. Dictated by: Shabbir Alcantara M.D. on 05/11/2019 at 12:55 Approved by: Shabbir Alcantara M.D. on 05/11/2019 at 12:57
--- NOTE | 2019-05-11 12:52 | DI.RAD.S_ITS ---
PROCEDURE: XR ANKLE RT MIN 3V INDICATIONS: FALL TECHNIQUE: 3 views of the ankle were acquired. COMPARISON: [facility], CR, XR ANKLE RT MIN 3V, 05/09/2019, 23:04. FINDINGS: Bones: Subtle nondisplaced distal fibular fracture. No other fractures or dislocations. Ankle mortise intact. Soft tissues: No tibiotalar joint effusion. Achilles tendon appears normal. Lateral soft tissue swelling. IMPRESSION: Unchanged findings. Subtle nondisplaced distal fibular fracture with associated soft tissue swelling. Dictated by: Calvin Rios M.D. on 05/11/2019 at 13:43 Approved by: Calvin Rios M.D. on 05/11/2019 at 13:45
--- NOTE | 2019-05-11 12:52 | DI.RAD.S_ITS ---
PROCEDURE: XR TIBIA FUBULA RT 2V INDICATIONS: FALL TECHNIQUE: 2 views of the tibia and fibula were acquired. COMPARISON: [facility], CR, XR ANKLE RT MIN 3V, 05/11/2019, 13:12. FINDINGS: Bones: No definite fractures or dislocations visualized. Soft tissues: There is marked lateral malleolar soft tissue swelling. IMPRESSION: Marked lateral malleolar soft tissue swelling. No definite fracture visualized on this limited view; however occult fracture cannot be excluded. Dictated by: Yuliana Allan M.D. on 05/11/2019 at 13:46 Approved by: Yuliana Allan M.D. on 05/11/2019 at 13:47
[2019-05-11 14:34] VITALS: BP 129/67; PULSE 81; RESP 16; O2SAT 100
--- NOTE | 2019-05-11 14:34 | PC.NURSE ---
knee immobobilzer and ankle gel splint provided to patient. pt moving easier. verbalized understanding to use walker at home until she is able to increase weight bearing.
== END 2019-05-11 14:38 | disposition home or self-care (01) ==
PROVIDERS: Emergency Provider Internal Medicine; Family Provider Orthopaedic Surgery Foot and Ankle Surgery; PCP Family Medicine
DX: S82.831D Other fracture of upper and lower end of right fibula, subsequent encounter for closed fracture with routine healing (principal); S80.01XA Contusion of right knee, initial encounter; M17.11 Unilateral primary osteoarthritis, right knee
CPT/HCPCS: 73562; 73590; 73610; 99282; 99283

== ENCOUNTER → 2019-06-08 11:22 | Outpatient (CLI) | payer BC, SELFPAY ==
[2019-06-08 13:26] LABS: TSH w/ Reflex to FT4 1.06 uIU/mL (0.47-4.68)
== END ==
PROVIDERS: PCP Family Medicine; Visit Provider Family Medicine
DX: E89.0 Postprocedural hypothyroidism (principal)
CPT/HCPCS: 36415; 84443

== ENCOUNTER → 2019-08-01 10:33 | Outpatient (CLI) | payer BC, SELFPAY ==
--- NOTE | 2019-08-01 | DI.NM.S_ITS ---
PROCEDURE: [place] RENAL FUNCTION W LASIX RADIOPHARMACEUTICAL: 10.1 mCi Tc-99m MAG3 IV and 40 mg furosemide IV. INDICATIONS: Congenital occlusion of ureteropelvic junction TECHNIQUE: The patient was hydrated orally before the examination was begun. After intravenous administration of Tc-99m MAG3, posterior abdominal radionuclide angiogram and sequential (1 minute each frame) renal images were obtained. A time-activity curve for each kidney was generated and analyzed. To evaluate for obstruction, the patient was given 40 mg furosemide via slow intravenous injection after the start of the examination. Sequential images were obtained for up to an additional 20 minutes. COMPARISON: [facility], [place], IVP (ABD & PEL WWO CONTRAST), 01/17/2016, 12:30. [place], [place], RENAL IMAGING WITH LASIX, 08/15/2016, 12:46. [place], RENAL IMAGING WITH LASIX, 02/25/2017, 9:16. [place], [place], [place] RENAL FUNCTION W LASIX, 03/12/2018, 11:15. FINDINGS: Perfusion: There is normal vascular flow to both kidneys. Morphology: Left kidney is normal in size and shape. Right kidney is mildly enlarged. The right renal collecting system is dilated. The ureters and bladder fill with tracer, and appear normal. Function: The left kidney demonstrates normal cortical tracer uptake, with [id number] activity at 4 minutes. Right kidney demonstrates mildly delayed cortical uptake and excretion with time to peak activity at 19.5 minutes. The right kidney contributes 45.5% of total renal function. The left kidney contributes 54.5% of total renal function. Lasix stimulation: There is spontaneous clearance of tracer activity from the left kidney and normal T1/2. There is progressive assimilation of tracer activity in right kidney, likely secondary to patulous left renal pelvis. After diuretic administration, there is mildly delayed clearance of tracer activity from the right renal collecting systems. The half-time of emptying of tracer activity from the right pelvicaliceal system is >16 minutes. The half-time of emptying from the left pelvicaliceal system is 7.2 minutes. Normal emptying half-times are less than 10 minutes; borderline ranges are from 10 to 20 minutes. IMPRESSION: 1. Normal left renal function. 2. Mildly decreased right renal function. 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 3. The right kidney contributes 45.5% of total renal function and the left kidney contributes 54.5% of total renal function. The split renal function is overall stable (previously 46.5%/53.5%). Dictated by: Cheryl Diaz M.D. on 08/01/2019 at 13:17 Approved by: Cheryl Diaz M.D. on 08/01/2019 at 17:55
== END ==
PROVIDERS: Family Provider Family Medicine; PCP Family Medicine; Visit Provider Specialist
DX: Q62.11 Congenital occlusion of ureteropelvic junction (principal)
CPT/HCPCS: 78708; A9562

== ENCOUNTER 2019-09-13 12:49 | Emergency (ER) | payer BC, SELFPAY ==
[2019-09-13 12:52] VITALS: BP 135/78; PULSE 87; RESP 16; TEMP 36.6; O2SAT 94; BMI 23.3
--- NOTE | 2019-09-13 15:11 | ED_ITS ---
HPI - Abdominal Pain General Chief Complaint: Abdominal Pain Stated Complaint: lump on rt side groin painful w/ movemnt Time Seen by Provider: 09/13/19 14:37 Source: patient Mode of arrival: Ambulatory Limitations: no limitations History of Present Illness HPI narrative: Patient comes emergency department complaining of groin which has been going on to some degree since April, but has been worse over the last cou ple weeks per patient states that it started would she tripped over her dog and fell down hill. She did not have a specific orthopedic diagnosis at that time, but states that she has had some degree of discomfort in the area since. Patient states that over the last couple of weeks, whenever she turns over in bed, the movement causes her pain. Patient states when she stands up, the area seems to become more full and she has sometimes noticed what she thinks is a bulge. Patient denies any pain anywhere else in her abdomen. She denies any nausea or vomiting. She is currently on Keflex for UTI. Patient has no history of hernia previously. She has a history of a and a tummy tuck. No other complaints at this time. Related Data Home Medications Medication Instructions Recorded Confirmed aspirin 81 mg tablet,delayed 81 mg PO DAILY 03/01/18 05/11/19 release calcium citrate 1 tab PO DAILY 03/01/18 12/29/18 cholecalciferol (vitamin D3) 1,000 1,000 unit PO DAILY 03/01/18 12/29/18 unit capsule coq10 1 tab PO DAILY 03/01/18 12/29/18 krill oil 500 mg capsule 500 mg PO DAILY cap 03/01/18 12/29/18 amlodipine 10 mg PO DAILY 05/11/19 09/13/19 levothyroxine 125 mcg PO DAILY 05/11/19 09/13/19 multivitamin 1 tab PO DAILY 05/11/19 09/13/19 omeprazole 40 mg PO DAILY 05/11/19 09/13/19 cephalexin 500 mg PO BEDTIME 09/13/19 09/13/19 citalopram 20 mg PO DAILY 09/13/19 09/13/19 estradiol 1 g VAGINAL 2XW 09/13/19 09/13/19 nitrofurantoin monohyd/m-cryst 100 mg PO BEDTIME 09/13/19 09/13/19 ospemifene [Osphena] 60 mg PO DAILY 09/13/19 09/13/19 Previous Rx's Medication Instructions Recorded lisinopril 10 mg tablet 10 mg PO DAILY #90 tab 10/11/18 metoprolol tartrate 25 mg tablet 12.5 mg PO BID #90 tab 03/25/19 Allergies Allergy/AdvReac Type Severity Reaction Status Date / Time shellfish derived Allergy Severe MUSSELS - Verified 09/13/19 12:59 ANAPHYLAXIS amoxicillin Allergy Mild RASH, Verified 09/13/19 12:59 DIARRHEA nitrofurantoin AdvReac Severe diarrhea,vomiting, Verified 09/13/19 12:59 rectal bleeding Review of Systems Review of Systems ROS Unobtainable: All systems reviewed & are unremarkable except as noted in HPI and below Constitutional Constitutional: Denies chills, Denies fatigue, Denies fever(s), Denies frequent falls, Denies lethargy and Denies weakness Eyes Eyes: Denies change in vision, Denies eye discharge, Denies irritation and Denies loss of vision ENT Ears, Nose, Mouth, and Throat: Denies change in voice, Denies dizziness, Denies neck pain, Denies sore throat and Denies throat swelling Cardiovascular Cardiovascular: Denies chest pain, Denies irregular heart rhythm, Denies lightheadedness, Denies palpitations, Denies dyspnea, Denies dyspnea on exertion and Denies orthopnea Respiratory Respiratory: Denies cough, Denies dyspnea, Denies dyspnea on exertion and Denies wheezing Gastrointestinal Gastrointestinal: Denies abdominal pain, Denies change in bowel habits, Denies diarrhea, Denies nausea and Denies vomiting Genitourinary Genitourinary: Denies hematuria, Denies flank pain, Denies urinary incontinence and Denies urinary urgency Musculoskeletal Musculoskeletal: Denies back pain, Denies muscle weakness, Denies neck pain, Denies numbness and Denies tingling Comments: Right inguinal pain Integumentary/Breasts Skin/Breast: Denies pruritus, Denies erythema, Denies rash and Denies wounds Neurologic Neurologic: Denies behavioral changes, Denies confusion, Denies dizziness, Denies frequent falls, Denies loss of vision, Denies numbness, Denies tingling and Denies weakness Psychiatric Psychiatric: Denies anxiety, Denies behavioral changes, Denies confusion, Denies depression, Denies homicidal ideation and Denies suicidal ideation Endocrine Endocrine: Denies fatigue, Denies flushing and Denies palpitations Hematologic/Lymphatic Hematologic/Lymphatic: Denies easy bruising Allergic/Immunologic Allergic/Immunologic: Denies urticaria, Denies throat swelling and Denies wheezing Patient History Medical History Anxiety (Chronic 2014) 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) Cataract (Resolved 2015) Colon polyps (Resolved) Congenital stricture of urethra (Chronic) Depression (Chronic 2014) Giant cell arteritis (Chronic) Graves' disease (Chronic) Hayfever (Chronic) Hypertension (Chronic) Hypothyroidism (Chronic) Precancerous skin lesion (Resolved ~2006) Shoulder pain (Chronic 2014) Tinnitus (Resolved 2009) Surgical History Anesthesia (Resolved) H/O hysterectomy for benign disease (Resolved 1994) History of abdominoplasty (Resolved 1981) History of bilateral tubal ligation (Resolved 1969) History of cataract surgery (Resolved 2014) History of section (Resolved 1969) History of cholecystectomy (Resolved) History of partial hysterectomy (Resolved 1989) History of tonsillectomy (Resolved 1945) History of ureter repair (Resolved 2013) Hx of thyroid irradiation (Resolved 1989) Status post tubal ligation Family History Brother Heart disease Brother Emphysema of lung Family/Other Influenza Father Heart attack Grandmother Esophageal cancer Mother Esophageal cancer Grandfather Heart attack Sister Pancreatic cancer Unknown Heart disease Smoker Grandfather No problems noted. Grandmother No problems noted. Social History marital status: occupational status: other (Retired from the [employer]) Smoking Status: Never smoker alcohol intake: current substance use type: does not use Smoking Status: Never smoker alcohol intake frequency: 0-2 drinks per day Substance Use Type: does not use Exam Initial Vital Signs Initial Vital Signs: Vital Signs Temperature 97.8 F 09/13/19 12:52 Pulse Rate 87 09/13/19 12:52 Respiratory Rate 16 09/13/19 12:52 Blood Pressure 135/78 09/13/19 12:52 Pulse Oximetry 94 09/13/19 12:52 Const General: cooperative and well developed Nutritional Appearance: well nourished Orientation: alert, awake, oriented x3 and not confused [facility] Head: normocephalic and atraumatic Ears: external ears normal Nose: external nose normal and No nasal discharge Face and sinus: face symmetric and No dry mucous membranes Mouth: oral mucosae normal and moist mucous membranes Teeth and gingiva: dentition normal Eyes General: appearance normal, both eyes and all related structures Eyelids: eyelids normal Conjunctivae: conjunctivae normal Sclera: sclerae normal Pupils: PERRL EOM: EOM intact bilaterally Neck Neck: normal visual inspection, trachea midline, No lymphadenopathy, No midline deformity and No JVD Lymphatic: No lymphedema Chest Chest: normal inspection of the chest Resp Effort & Inspection: normal respiratory effort, able to speak in complete sentences, no respiratory distress and no use of accessory muscles Auscultation: clear to auscultation bilaterally, no rales, no rhonchi and no wheezes Cardio Rate: regular rate Rhythm: regular rhythm Heart Sounds: no click, no gallops, no murmurs and no rubs Pulses: normal peripheral pulses GI Inspection: non-distended Palpation: soft, no hepatosplenomegaly, No guarding, No pulsatile mass and No tender Back/Spine/Pelvis Back: No CVA tenderness Cervical Spine: cervical ROM normal and No pain with cervical ROM Thoracic/Lumbar Spine: thoracic and lumbar spine normal to inspection Other: Mild tenderness without mass or fluctuance noted over the lateral right inguinal area, just superior to the inguinal ligament. Skin General: no rashes or lesions noted, No jaundice and No petechiae Neuro General: alert, oriented x3, gait normal and no focal motor deficits Speech: speech normal Extrem General: full ROM, no clubbing, cyanosis or edema, no pedal edema and no calf tenderness Psych Appearance: well kempt Mental Status: mental status grossly normal Attitude: cooperative Thought Content: normal and suicidality Judgment: judgment good Course Course Course Narrative: Patient was worked up with a BMP and CT of the pelvis with IV contrast. This did show a right inguinal hernia without strangulation or incarceration. I discussed the findings with the patient, and the need for follow-up with surgeon. At this point in time, we've discussed management of the discomfort, as well. The patient does not have any emergent complications of her hernia, and we've discussed the signs and symptoms that would indicate this and the need for immediate return. Patient is agreeable to the plan. Orders Ordered: ED Orders 09/13/19 15:10 CT pelvis w con Stat Basic Metabolic Panel Stat Vital Signs Vital signs: Vital Signs - 8 hr 09/13/19 12:52 Temperature 97.8 F Pulse Rate 87 Respiratory Rate 16 Blood Pressure 135/78 Pulse Oximetry 94 MDM - Abdominal Pain Medical Records Attestation: I reviewed the patient's medical records. Lab Data Attestation: I reviewed the patient's lab results. Result diagrams: 09/13/19 15:08 Labs: Lab Results 09/13/19 Range/Units 15:08 Sodium 134 L (137-145) mmol/L Potassium 4.5 (3.4-5.1) mmol/L Chloride 95 L (98-107) mmol/L Carbon Dioxide 30 (22-32) mmol/L BUN 10 (7-17) mg/dL Creatinine 0.50 L (0.52-1.04) mg/dL Estimated GFR > 60.0 (>60) mL/min BUN/Creatinine Ratio 20.0 (6-22) Glucose 102 (80-110) mg/dL Calcium 9.3 (8.4-10.2) mg/dL Imaging Data Pelvis CT: Radiologist's Impression: PROCEDURE: CT PELVIS W CON INDICATIONS: R inguinal pain, intermittent bulging TECHNIQUE: After the administration of intravenous contrast, 5 mm thick sections acquired from the iliac crests to the symphysis. 5 mm coronal and sagittal reformats were acquired. For radiation dose reduction, the following was used: automated exposure control, adjustment of mA and/or kV according to patient size. COMPARISON: None. FINDINGS: Image quality: Excellent. Peritoneum and bowel: Bowel loops demonstrate normal wall thickness and calib er. No free fluid or air. Colonic diverticula are present without associated inflammatory change. Genitourinary: Bladder wall thickness is normal. Nodes and vessels: No iliac, pelvic, or inguinal adenopathy by size criteria. Iliac vessels demonstrate normal size and enhancement. Bones: No suspicious bony lesions. Miscellaneous: There is a bowel containing right inguinal hernia. No evidence of incarceration or strangulation. IMPRESSION: 1. Bowel containing right inguinal hernia without incarceration or strangulation. Dictated by: Gladis Ponce M.D. on 09/13/2019 at 16:29 Approved by: Gladis Ponce M.D. on 09/13/2019 at 16:30 Discharge Plan Departure Patient Disposition: Home Clinical Impression: Inguinal hernia of right side without obstruction or gangrene Discharge Date/Time: 09/13/19 18:40 Instructions: DI for Groin Hernia Activity Restrictions/Additional Instructions: Your CT scan shows a small hernia in your inguinal or groin area. This is most likely the reason you have been noticing pain and swelling. Please follow-up with your primary care physician and the surgeons to discuss whether a surgical repair would be a good option for you. Prescriptions: No Action lisinopril 10 mg tablet 10 mg PO DAILY Qty: 90 RF: 3 metoprolol tartrate 25 mg tablet 12.5 mg PO BID Qty: 90 RF: 3 krill oil 500 mg capsule 500 mg PO DAILY RF: 0 calcium citrate 1 tab PO DAILY RF: 0 cholecalciferol (vitamin D3) 1,000 unit capsule 1,000 unit PO DAILY RF: 0 coq10 1 tab PO DAILY RF: 0 aspirin [Adult Low Dose Aspirin] 81 mg tablet,delayed release (DR/EC) 81 mg PO DAILY RF: 0 levothyroxine 125 mcg tablet 125 mcg PO DAILY RF: 0 multivitamin Tablet 1 tab PO DAILY RF: 0 omeprazole 40 mg capsule,delayed release(DR/EC) 40 mg PO DAILY RF: 0 amlodipine 10 mg tablet 10 mg PO DAILY RF: 0 cephalexin 500 mg capsule 500 mg PO BEDTIME RF: 0 estradiol 0.01 % (0.1 mg/gram) cream 1 g VAGINAL 2XW RF: 0 nitrofurantoin monohyd/m-cryst 100 mg capsule 100 mg PO BEDTIME RF: 0 Osphena 60 mg tablet 60 mg PO DAILY RF: 0 citalopram 20 mg tablet 20 mg PO DAILY RF: 0 Referrals: [facility] [Provider Group] Haley Dewey DO [Primary Care Provider] -
--- NOTE | 2019-09-13 15:24 | PC.NURSE ---
Attempted PIV placement one time, unsuccessful. Tara FOUNTAIN to try.
[2019-09-13 15:55] LABS: Blood Urea Nitrogen 10 mg/dL (7-17); Calcium 9.3 mg/dL (8.4-10.2); Carbon Dioxide 30 mmol/L (22-32); Chloride 95 mmol/L (98-107); Estimated Glomerular Filt Rate > 60.0 mL/min (>60); Glucose 102 mg/dL (80-110); HEMOLYSIS 28 (0-50); Potassium 4.5 mmol/L (3.4-5.1); Sodium 134 mmol/L (137-145)
[2019-09-13 18:40] VITALS: BP 130/71; PULSE 82; RESP 18; O2SAT 96
== END 2019-09-13 18:40 | disposition home or self-care (01) ==
PROVIDERS: Emergency Provider Emergency Medicine; Family Provider Family Medicine; PCP Family Medicine
DX: K40.90 Unilateral inguinal hernia, without obstruction or gangrene, not specified as recurrent (principal)
CPT/HCPCS: 36415; 72193; 80048; 99284

== ENCOUNTER → 2020-01-23 11:24 | Outpatient (CLI) | payer BC, SELFPAY ==
[2020-01-23 13:18] LABS: TSH w/ Reflex to FT4 1.63 uIU/mL (0.47-4.68)
== END ==
PROVIDERS: Family Provider Family Medicine; PCP Family Medicine; Referring Provider Family Medicine; Visit Provider Family Medicine
DX: E89.0 Postprocedural hypothyroidism (principal)
CPT/HCPCS: 36415; 84443

== ENCOUNTER → 2020-05-04 13:40 | Outpatient (CLI) | payer BC, SELFPAY ==
--- NOTE | 2020-05-04 | DI.MG.S_ITS ---
BILATERAL DIGITAL SCREENING MAMMOGRAM 3D/2D WITH CAD: 05/04/2020 CLINICAL: Routine screening. Comparison is made to exams dated: 03/02/2019 mammogram, 12/26/2017 mammogram, and 04/10/2017 mammogram - [facility]. There are scattered fibroglandular elements in both breasts. Current study was also evaluated with a Computer Aided Detection (CAD) system. No significant masses, calcifications, or other findings are seen in either breast. There has been no significant interval change. IMPRESSION: NEGATIVE There is no mammographic evidence of malignancy. A 1 year screening mammogram is recommended. This exam was interpreted at Station ID: [id number]. NOTE: For mammograms, a report in lay terms will be sent to the patient. Approximately 15% of breast malignancies will not be visualized mammographically. In the management of a palpable breast mass, a negative mammogram must not discourage biopsy of a clinically suspicious lesion. Electronically Signed By: Chetan Roach M.D., jr/dulce:05/04/2020 17:05:34 letter sent: Normal Exam ACR BI-RADS Category 1: Negative [id number]
== END ==
PROVIDERS: Family Provider Family Medicine; PCP Family Medicine; Referring Provider Family Medicine; Visit Provider Family Medicine
DX: Z12.31 Encounter for screening mammogram for malignant neoplasm of breast (principal)
CPT/HCPCS: 77063; 77067

== ENCOUNTER → 2020-06-27 10:15 | Outpatient (CLI) | payer BC, SELFPAY ==
[2020-06-27 11:16] LABS: Add Manual Diff / Slide Review NO; Basophils Absolute Auto 100 /uL (0-100); Basophils Percent Auto 0.9 % (0-2); Eosinophils Absolute Auto 200 /uL (0-450); Eosinophils Percent Auto 3.7 % (2-4); Hematocrit 41.7 % (36-46); Hemoglobin 14.2 g/dL (12.0-16.0); Lymphocytes Absolute Auto 900 /uL (1100-4500); Lymphocytes Percent Auto 14.9 % (25-40); Mean Corpuscular HGB Conc 34.1 % (30-36); Mean Corpuscular Hemoglobin 31.7 PG (26-34); Monocytes Absolute Auto 700 /uL (0-900); Monocytes Percent Auto 12.6 % (3-14); Neutrophils Absolute Auto 4000 /uL (1500-7000); Neutrophils Percent Auto 67.9 % (50-75); Platelet Count 359 X10^3/uL (150-400); Red Blood Cell Count 4.48 X10^6/uL (4.0-5.2); Red Cell Distribution Width 14.3 % (11.6-14.8); White Blood Cell Count 5.9 X10^3/uL (4.5-11.0)
[2020-06-27 11:22] LABS: Hemoglobin A1C% w Est Avg Glu 5.8 % (4.0-6.0)
[2020-06-27 11:55] LABS: Alanine Aminotransferase 30 IU/L (<35); Albumin 4.4 g/dL (3.5-5.0); Albumin Globulin Ratio 1.3 (1.0-2.8); Alkaline Phosphatase 85 U/L (38-126); Aspartate Aminotransferase 36 IU/L (14-36); BUN Creatinine Ratio 17.5 (6-22); Bilirubin Total 0.8 mg/dL (0.2-1.3); Blood Urea Nitrogen 10 mg/dL (7-17); Calcium 9.7 mg/dL (8.4-10.2); Carbon Dioxide 30 mmol/L (22-32); Chloride 93 mmol/L (98-107); Cholesterol 216 mg/dL (140-199); Estimated Glomerular Filt Rate > 60.0 mL/min (>60); Globulin 3.4 g/dL (1.7-4.1); Glucose 131 mg/dL (80-110); HDL Cholesterol 105 mg/dL (40-60); HEMOLYSIS < 15 (0-50); LDL Cholesterol Calculated 94 mg/dL (<100); Potassium 5.2 mmol/L (3.4-5.1); Sodium 128 mmol/L (137-145); Total Protein 7.8 g/dL (6.3-8.2); Triglycerides 86 mg/dL (35-150)
== END ==
PROVIDERS: Family Provider Family Medicine; PCP Family Medicine; Referring Provider Family Medicine; Visit Provider Family Medicine
DX: I10 Essential (primary) hypertension (principal); R73.03 Prediabetes
CPT/HCPCS: 36415; 80053; 80061; 83036; 85025

== ENCOUNTER → 2020-07-11 10:31 | Outpatient (CLI) | payer BC, SELFPAY ==
[2020-07-11 12:43] LABS: BUN Creatinine Ratio 18.4 (6-22); Blood Urea Nitrogen 9 mg/dL (7-17); Calcium 9.2 mg/dL (8.4-10.2); Carbon Dioxide 28 mmol/L (22-32); Chloride 95 mmol/L (98-107); Estimated Glomerular Filt Rate > 60.0 mL/min (>60); Glucose 122 mg/dL (80-110); HEMOLYSIS < 15 (0-50); Potassium 4.4 mmol/L (3.4-5.1); Sodium 129 mmol/L (137-145)
== END ==
PROVIDERS: Family Provider Family Medicine; PCP Family Medicine; Referring Provider Family Medicine; Visit Provider Family Medicine
DX: E78.1 Pure hyperglyceridemia (principal)
CPT/HCPCS: 36415; 80048

== ENCOUNTER → 2020-08-06 10:11 | Outpatient (CLI) | payer BC, SELFPAY ==
--- NOTE | 2020-08-06 10:14 | DI.NM.S_ITS ---
PROCEDURE: [place] RENAL FUNCTION W LASIX RADIOPHARMACEUTICAL: 10.5 mCi Tc-99m MAG3 IV and 40 mg furosemide IV. INDICATIONS: Occlusion of UPJ TECHNIQUE: The patient was hydrated orally before the examination was begun. After intravenous administration of Tc-99m MAG3, posterior abdominal radionuclide angiogram and sequential (1 minute each frame) renal images were obtained. A time-activity curve for each kidney was generated and analyzed. To evaluate for obstruction, the patient was given 40 mg furosemide via slow intravenous injection after the start of the examination. Sequential images were obtained for up to an additional 20 minutes. COMPARISON: [place], [place] RENAL FUNCTION W LASIX, 03/12/2018, 11:15. [facility], CT, IVP (ABD & PEL WWO CONTRAST), 01/17/2016, 12:30. [place], [place], RENAL IMAGING WITH LASIX, 08/15/2016, 12:46. [place], RENAL IMAGING WITH LASIX, 02/25/2017, 9:16. [facility], CT, CT PELVIS W CON, 09/13/2019, 16:01. [place], [place] RENAL FUNCTION W LASIX, 08/01/2019, 10:59. FINDINGS: Perfusion: There is normal vascular flow to both kidneys. Morphology: The left kidney is normal in size. Right kidney is mildly enlarged. The right renal collecting system is dilated. The left ureter and bladder fill with tracer, and appear normal. The right ureter is suboptimally visualized. Function: The left kidney demonstrates normal cortical tracer uptake and excretion, with sdoc-rb-pino activity at 2.5 minutes. The right kidney mildly demonstrates cortical uptake and cortical excretion. The right kidney contributes 46.0% of total renal function. The left kidney contributes 54.0% of total renal function. Split renal function is unchanged compared to the last exam. Lasix stimulation: After diuretic administration, there is prompt clearance of tracer activity from the renal collecting system of the left kidney. The half-time of emptying of tracer activity from the left pelvicaliceal system is 7.7 minutes. There is delayed emptying of activity from the right renal collecting system. The half-time of emptying from the left pelvicaliceal system is > 16 minutes. Normal emptying half-times are less than 10 minutes; borderline ranges are from 10 to 20 minutes. IMPRESSION: 1. Persistent right UPJ obstruction. 2. Normal left renal function. 3. Right kidney contributes 46% and left kidney 54% of total renal function. There is no significant change from the last exam. Dictated by: Cheryl Diaz M.D. on 08/06/2020 at 12:37 Approved by: Cheryl Diaz M.D. on 08/06/2020 at 17:34
== END ==
PROVIDERS: Family Provider Family Medicine; PCP Family Medicine; Referring Provider Specialist; Visit Provider Specialist
DX: Q62.11 Congenital occlusion of ureteropelvic junction (principal)
CPT/HCPCS: 78708; A9562

== ENCOUNTER → 2020-08-16 11:37 | Outpatient (CLI) | payer BC, SELFPAY ==
[2020-08-16 13:16] LABS: BUN Creatinine Ratio 16.4 (6-22); Blood Urea Nitrogen 9 mg/dL (7-17); Calcium 9.4 mg/dL (8.4-10.2); Carbon Dioxide 28 mmol/L (22-32); Chloride 98 mmol/L (98-107); Estimated Glomerular Filt Rate > 60.0 mL/min (>60); Glucose 141 mg/dL (80-110); HEMOLYSIS < 15 (0-50); Potassium 4.7 mmol/L (3.4-5.1); Sodium 133 mmol/L (137-145)
== END ==
PROVIDERS: Family Provider Family Medicine; PCP Family Medicine; Referring Provider Family Medicine; Visit Provider Family Medicine
DX: E87.1 Hypo-osmolality and hyponatremia (principal)
CPT/HCPCS: 36415; 80048

== ENCOUNTER → 2020-08-23 12:00 | Outpatient (CLI) | payer BC, SELFPAY ==
[2020-08-23 12:43] LABS: Appearance Urine UA TURBID; Bilirubin Urine UA NEGATIVE (NEGATIVE); Color Urine UA YELLOW; Glucose Urine UA NEGATIVE (Negative); Ketones Urine UA NEGATIVE (NEGATIVE); Leukocyte Esterase Urine UA 3+ (NEGATIVE); Nitrite Urine UA NEGATIVE (Negative); Occult Blood Urine UA 3+ (Negative); Protein Urine UA 3+ (Negative); Urobilinogen Urine UA 0.2 E.U./dL (0.2)
[2020-08-23 12:47] LABS: pH Urine UA 6.5 (4.5-8.0)
[2020-08-23 13:05] LABS: RBC Urine >100/HPF (0-5/HPF)
[2020-08-23 13:06] LABS: Bacteria Urine Many (>30); Culture Indicated Urine Specimen Cultured; WBC Urine 30-100/HPF (0-5/HPF)
== END ==
PROVIDERS: Family Provider Family Medicine; PCP Family Medicine; Referring Provider Specialist; Visit Provider Specialist
DX: N39.0 Urinary tract infection, site not specified (principal)
CPT/HCPCS: 81003; 81015; 87077; 87086; 87186

== ENCOUNTER → 2020-09-28 10:40 | Outpatient (CLI) | payer BC, SELFPAY ==
[2020-09-28 11:49] LABS: COVID19 -Nasal RAPID Negative (Negative)
== END ==
PROVIDERS: Family Provider Family Medicine; PCP Family Medicine; Visit Provider Surgery
DX: Z01.812 Encounter for preprocedural laboratory examination (principal); Z20.822 Contact with and (suspected) exposure to COVID-19
CPT/HCPCS: 87635; C9803

== ENCOUNTER 2020-10-01 08:05 | Day surgery (SDC) | payer BC, SELFPAY ==
[2020-10-01] VITALS (9 sets, daily range): BP systolic 92–138; BP diastolic 44–67; PULSE 71–84; RESP 10–16; TEMP 36.4–36.7; O2SAT 92–99; BMI 28.3
--- NOTE | 2020-10-01 | PATH_ITS ---
[facility] Accession Number: [id number] . 01 Material submitted: . esophagus, E-G Junction - GE JUNCTION . 01 Clinical history: . EGD/COLONOSCOPY . 02 Diagnosis: Gastroesophageal Junction, Biopsy: Squamous epithelium with no diagnostic abnormality. Intraepithelial eosinophils are not increased. Negative for dysplasia and malignancy. V 10/04/2020 1254 Local . 02 Electronically signed: . Roxanne Vinson MD, Pathologist NPI- [id number] . 01 Gross description: . GE JUNCTION: Received in formalin are 2 fragment(s) of monaco, soft tissue measuring 0.1 x 0.1 x 0.1 cm to 0.2 x 0.2 x 0.1 cm submitted entirely in 1 cassette(s) /CALLIE 10/02/20202017 Local . 02 Pathologist provided ICD-10: R13.10 . 02 CPT . 565601 Performed at: 01 [facility] [address] [facility], [place], [place] [id number] MD Mathew Archer MD Phone: [phone] Performed at: 02 [facility] [address] [place], [place] [id number] MD Roxanne Vinson MD Phone: [phone]
[2020-10-01] MEDS: LACTATED RINGERS 1,000 ML 200 ML IV ×2 (08:40→11:32)
--- NOTE | 2020-10-01 10:18 | PM.PREOP ---
Pre-operative Note COVID-19 COVID-19 status: Negative Interval Note History & Physical reviewed/Exam performed by Physician: Yes Changes to H&P: No
--- NOTE | 2020-10-01 10:25 | PM.PREOP ---
Pre-operative Note COVID-19 COVID-19 status: Negative Interval Note History & Physical reviewed/Exam performed by Physician: Yes Changes to H&P: No
[2020-10-01] MEDS: LIDOCAINE 4% SOLN 50 ML 20 ML TOP (10:40)
[2020-10-01] MEDS: MIDAZOLAM 5 MG/5 ML VIAL IV (10:43)
[2020-10-01] MEDS: fentaNYL 250 MCG/5 ML INJ IV (10:47)
--- NOTE | 2020-10-01 10:59 | PM.OP.ENDO ---
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 Time out was performed. Procedural sedation was administered with Versed and Fentanyl. A bite block was placed. the scope was inserted into the mouth and advanced through the esophagus and into the stomach. The pylorus was intubated and the duodenum was normal to the 2nd portion. The scope was retroflexed within the stomach and there was a small hiatal hernia. No ulcers, or gastritis. The scope was withdrawn into the esophagus the Z line was seen at 35 cm from the incisions. There was no esophagitis masses or strictures. The GE junction was biopsied in multiple locations using the forceps. Stomach was desufflated and scope removed. Examination began with a thorough inspection of the perianal area there was no evidence of fissures, fistulae, external hemorrhoids or cutaneous malignancy. The colonoscopy scope was then placed into the anal canal and was advanced to the sigmoid colon. The sigmoid colon was particularly tortuous patient was repositioned external pressure was applied scope stiffener was placed but despite these measures I could not safely advanced beyond the level of the sigmoid colon. The colon to this level was normal in its appearance. The prep was of fair quality. The total sedation time was 30 minutes. Specimen(s): other (GE junction) Complications: none Impression: Normal EGD. Aborted colonoscopy Post-procedure Recommendations: Other recommendation (Barium enema) Disposition: same day surgery
== END 2020-10-01 11:48 | disposition home or self-care (01) ==
PROVIDERS: Family Provider Family Medicine; PCP Family Medicine; Referring Provider Family Medicine; Visit Provider Surgery
PROC: 0DJ08ZZ Inspection of Upper Intestinal Tract, Via Natural or Artificial Opening Endoscopic (ICD-10-PCS; CPT 43235; principal; 2020-10-01 09:15)
PROC: 0DJD8ZZ Inspection of Lower Intestinal Tract, Via Natural or Artificial Opening Endoscopic (ICD-10-PCS; CPT 45378; 2020-10-01 09:15)
DX: Z12.11 Encounter for screening for malignant neoplasm of colon (principal); Z86.010 Personal history of colon polyps; Z87.19 Personal history of other diseases of the digestive system; K21.9 Gastro-esophageal reflux disease without esophagitis; K44.9 Diaphragmatic hernia without obstruction or gangrene; Z53.09 Procedure and treatment not carried out because of other contraindication
CPT/HCPCS: 43239; 45378; 99152; 99153; J2250; J3010

== ENCOUNTER → 2020-10-12 10:07 | Outpatient (CLI) | payer BC, SELFPAY ==
--- NOTE | 2020-10-12 10:08 | DI.RAD.S_ITS ---
PROCEDURE: [place] BARIUM ENEMA INDICATIONS: incomplete colonoscopy COMPARISON: [facility], CT, IVP (ABD & PEL WWO CONTRAST), 01/17/2016, 12:30. [facility], CT, CT PELVIS W CON, 09/13/2019, 16:01. [facility], [place], [place] RENAL FUNCTION W LASIX, 08/06/2020, 10:26. FINDINGS: KUB: Preprocedural skin lap bonder film demonstrates a normal bowel gas pattern. There are multiple calcified densities in abdomen, correlating with calcified lymph nodes seen on the comparison CT. Visualized solid organ contours appear normal in size. No suspicious bony lesions. Cholecystectomy clips are noted. Colon: Colon is redundant. There is adequate opacification of the entire colon. There are scattered colonic diverticula, most numerous in sigmoid colon. No strictures or extrinsic mass effects are identified. No colonic fistulae or perforations. Colon caliber appears normal. IMPRESSION: 1. No polypoid masses are identified. 2. Diverticulosis. 3. Redundant colon. 4. Multiple calcified densities in abdomen, correlating with CT finding of multiple calcified lymph nodes. Dictated by: Cheryl Diaz M.D. on 10/12/2020 at 13:47 Approved by: Cheryl Diaz M.D. on 10/12/2020 at 16:21
== END ==
PROVIDERS: Family Provider Family Medicine; PCP Family Medicine; Referring Provider Family Medicine; Visit Provider Surgery
DX: Z12.11 Encounter for screening for malignant neoplasm of colon (principal); K63.5 Polyp of colon; K57.30 Diverticulosis of large intestine without perforation or abscess without bleeding
CPT/HCPCS: 74280

== ENCOUNTER 2021-01-17 11:26 | Emergency (ER) | payer BC, SELFPAY ==
[2021-01-17 11:40] VITALS: BP 147/87; PULSE 84; RESP 16; TEMP 36.8; O2SAT 97; BMI 24.1
--- NOTE | 2021-01-17 11:43 | DI.RAD.S_ITS ---
PROCEDURE: XR SHOULDER LT MIN 2V INDICATIONS: fall TECHNIQUE: 3 views of the shoulder were acquired. COMPARISON: [facility], , SHOULDER MINIMUM 2VIEW RIGHT, 08/01/2009, 11:39. FINDINGS: Bones: No fractures or dislocations. No suspicious bony lesions. Visualized ribs appear intact. Soft tissues: No suspicious soft tissue calcifications. 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 Dictated by: Gigi Ríos M.D. on 01/17/2021 at 12:12 Approved by: Gigi Ríos M.D. on 01/17/2021 at 12:12
--- NOTE | 2021-01-17 11:43 | DI.CT.S_ITS ---
PROCEDURE: CT HEAD/BRAIN WO CON INDICATIONS: fall TECHNIQUE: Noncontrast 4.5 mm thick angled axial sections acquired from the foramen magnum to the vertex, with coronal and sagittal reformats. For radiation dose reduction, the following was used: automated exposure control, adjustment of mA and/or kV according to patient size. COMPARISON: [facility], CT, CT HEAD/BRAIN WO CON, 05/12/2018, 11:50. [facility], CT, HEAD WITHOUT CONTRAST, 06/20/2016, 18:43. FINDINGS: Image quality: Excellent. CSF spaces: Basal cisterns are patent. No extra-axial fluid collections. The ventricles are symmetric in size and shape. Brain: No intracranial bleeds or masses. There is cerebral volume loss for age, with resultant ventricular and sulcal prominence. There are periventricular and deep white matter chronic small vessel ischemic changes. There is intracranial internal carotid artery atherosclerosis. Skull and face: Calvarium and visualized facial bones appear intact, without suspicious lesions. Sinuses: Visualized sinuses and mastoids are clear. IMPRESSION: Mild microvascular atherosclerotic change in the deep white matter of each hemisphere, no trauma found. Dictated by: Gigi Ríos M.D. on 01/17/2021 at 12:13 Approved by: Giig Ríos M.D. on 01/17/2021 at 12:13
[2021-01-17] MEDS: LIDO 1%/SOD BICARB 8.4% (10ML) 10 ML SYRINGE INJ (12:26)
[2021-01-17] MEDS: BACITRACIN OINT 0.9 GM PCKT 1 APPLIC TOP (12:26)
--- NOTE | 2021-01-17 12:42 | ED_ITS ---
HPI - Fall General Chief Complaint: Fall Stated Complaint: wound on forehead, fell today Time Seen by Provider: 01/17/21 11:47 Source: patient Mode of arrival: Ambulatory Limitations: no limitations History of Present Illness HPI Narrative: 80-year-old female who is here for evaluation of wounds he sustained after tripping over some chicken wire in her driveway today. She landed on her left shoulder on the left side of her face. There was no loss of consciousness. She did sustain cuts to left side of her face and also has pain to her left shoulder. Is quite a bit of difficulty with moving her left shoulder. No other injuries reported from the event. She is not on anticoagulation. Related Data Home Medications Medication Instructions Recorded Confirmed aspirin 81 mg tablet,delayed 81 mg PO DAILY 03/01/18 10/01/20 release cholecalciferol (vitamin D3) 25 1,000 unit PO DAILY 03/01/18 10/01/20 mcg (1,000 unit) capsule krill oil 500 mg capsule 500 mg PO DAILY cap 03/01/18 10/01/20 [id number] Z5-F5-X-mag--zinc 1 tab PO DAILY 10/01/20 10/01/20 Previous Rx's Medication Instructions Recorded lisinopril 10 mg tablet 10 mg PO DAILY #90 tab 12/22/19 levothyroxine 125 mcg tablet 125 mcg PO DAILY #90 tab 05/22/20 omeprazole 40 mg capsule,delayed 40 mg PO DAILY #90 cap 06/14/20 release metoprolol tartrate 25 mg tablet 12.5 mg PO BID #90 tab 07/02/20 sodium,potassium,mag sulfates 17.5 177 ml PO DAILY #354 ml 10/09/20 gram-3.13 gram-1.6 gram oral soln amlodipine 10 mg tablet 10 mg PO DAILY #90 tab 10/23/20 escitalopram oxalate 5 mg tablet 5 mg PO DAILY #30 tab 11/06/20 hydrocodone-acetaminophen 1 tab PO Q4-6H PRN #10 tab 01/17/21 Allergies Allergy/AdvReac Type Severity Reaction Status Date / Time shellfish derived Allergy Severe MUSSELS - Verified 10/01/20 08:41 ANAPHYLAXIS amoxicillin Allergy Mild RASH, Verified 10/01/20 08:41 DIARRHEA nitrofurantoin AdvReac Severe diarrhea,vomiting, Verified 10/01/20 08:41 rectal bleeding Review of Systems Constitutional Constitutional: Denies frequent falls and Reports headache(s) Eyes Eyes: Denies change in vision ENT Ears, Nose, Mouth, and Throat: Denies dizziness, Reports headache(s) and Denies sore throat Cardiovascular Cardiovascular: Denies chest pain and Denies dyspnea Respiratory Respiratory: Denies dyspnea Gastrointestinal Gastrointestinal: Denies abdominal pain Musculoskeletal Comments: Left shoulder pain Integumentary/Breasts Comments: Cut to left side of face Neurologic Neurologic: Denies dizziness, Denies frequent falls and Reports headache(s) Hematologic/Lymphatic On Anticoagulants: No Patient History Medical History Anxiety (2014) Coppola's syndrome Cataract (2015) Colon polyps Congenital stricture of urethra Depression (2013) Giant cell arteritis Graves' disease Hayfever History of UTI Hypertension Hypothyroidism 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 Precancerous skin lesion (~2006) Shoulder pain (2014) Tinnitus (2009) Surgical History Anesthesia H/O hysterectomy for benign disease (1994) History of abdominoplasty (1981) History of bilateral tubal ligation (1969) History of cataract surgery (2014) History of section (1969) History of cholecystectomy History of partial hysterectomy (1989) History of tonsillectomy (1945) History of ureter repair (2013) Hx of thyroid irradiation (1989) Status post tubal ligation Family History Brother Heart disease Brother Emphysema of lung Family/Other Influenza Father Heart attack Grandmother Esophageal cancer Mother Esophageal cancer Grandfather Heart attack Sister Pancreatic cancer Unknown Heart disease Smoker Grandfather No problems noted. Grandmother No problems noted. Social History marital status: household members: spouse occupational status: previously employed and other (Retired from the [employer]) Smoking Status: Never smoker alcohol intake: current substance use type: does not use Smoking Status: Never smoker alcohol intake frequency: 0-2 drinks per day Substance Use Type: does not use Exam Initial Vital Signs Initial Vital Signs: Vital Signs Temperature 98.3 F 01/17/21 11:40 Pulse Rate 84 05/06/21 11:40 Respiratory Rate 16 01/17/21 11:40 Blood Pressure 147/87 H 01/17/21 11:40 Pulse Oximetry 97 01/17/21 11:40 Const General: cooperative and comfortable Limitations: mental status not altered HENMT Head: normal to inspection Ears: TM's normal bilaterally Nose: external nose normal Face and sinus: abrasion (Left forehead), laceration (Left forehead) and no maxillary instability Mouth: oral mucosae normal and other Teeth and gingiva: dentition normal Eyes Visual Phillips: normal visual phillips by confrontation Pupils: PERRL Other: Swelling above left eye Chest Chest: No crepitus and No tenderness Resp Effort & Inspection: normal respiratory effort Auscultation: clear to auscultation bilaterally Cardio Rate: regular rate Pulses: radial pulses present on the left Back/Spine/Pelvis Cervical Spine: No cervical spinal tenderness Skin Other: Patient with multiple abrasions and several small lacerations to left forehead with underlying ecchymosis. Neuro General: patient alert and patient awake Cognition: normal cognition Extrem General: normal to inspection and capillary refill normal Other: Patient with tenderness to palpation the lateral aspect of her left shoulder. Her left elbow and left wrist are unremarkable. Her pelvis is stable. Bilateral lower extremities are stable. Psych Appearance: grossly normal and well kempt Procedures Laceration Repair Laceration 1: Site: face (Left forehead) Side (If applicable): left Size (cm): 3 Description: irregular Depth: simple, single layer Local Anesthetic: lidocaine 1% and with bicarb Amount of anesthesia used (mL): 3 Pre-repair: wound explored Skin layer closed with: nylon Size (cm): 4-0 Number of sutures: 4 Technique: simple, interrupted Laceration 2: Site: face (Forehead) Side (If applicable): left Size (cm): 1 Description: linear Depth: simple, single layer Local Anesthetic: lidocaine 1% and with bicarb Amount of anesthesia used (mL): 2 Pre-repair: wound explored and deep structures intact Skin layer closed with: nylon Size (cm): 4-0 Number of sutures: 1 Technique: simple, interrupted Laceration 3: Site: face (Forehead) Side (If applicable): left Size (cm): 1 Description: linear Depth: simple, single layer Local Anesthetic: lidocaine 1% and with bicarb Amount of anesthesia used (mL): 2 Skin layer closed with: nylon Size (cm): 4-0 Number of sutures: 1 Technique: simple, interrupted Laceration 4: Site: face (Forehead) Side (If applicable): left Size (cm): 2 Description: irregular Depth: simple, single layer Local Anesthetic: lidocaine 1% and with bicarb Amount of anesthesia used (mL): 3 Pre-repair: wound explored and deep structures intact Skin layer closed with: nylon Size (cm): 4-0 Number of sutures: 3 Technique: simple, interrupted Scores GCS Toy[place] coma scale eye opening: Spontaneous [place] coma scale verbal response: Orientated Toy[place] coma scale motor response: Obey commands Toy[place] coma scale total score: 15 Nexus Score for C-Spine Focal Neurologic deficit present: No Midline spinal tenderness present: No Altered level of conciousness present: No Intoxication present: No Distracting Injury Present: No Nexus Criteria for C-spine: 0 Course Orders Ordered: ED Orders 01/17/21 11:43 CT head/brain wo con Stat XR shoulder LT min 2V Stat Discontinued Medications Hydrocodone Bitart/Acetaminophen (Hydrocodone/Acet 5/325 Tablet) 1 tab PO NOW ONE Stop: 01/17/21 12:43 Last Admin: 01/17/21 12:50 Dose: 1 tab Documented by: KRISTEL Bacitracin (Bacitracin Oint 0.9 Gm Pckt) 1 applic TOP NOW ONE Stop: 01/17/21 11:48 Last Admin: 01/17/21 12:26 Dose: 1 applic Documented by: KRISTEL Lidocaine/Sodium Bicarbonate (Lido 1%/Sod Bicarb 8.4% (10ml) 10 Ml Syringe) 10 ml INJ NOW ONE Stop: 01/17/21 11:48 Last Admin: 01/17/21 12:26 Dose: 10 ml Documented by: KRISTEL Vital Signs Vital signs: Vital Signs - 8 hr 01/17/21 11:40 01/17/21 12:55 Temperature 98.3 F Pulse Rate 84 79 Respiratory Rate 16 18 Blood Pressure 147/87 H 138/63 Pulse Oximetry 97 MDM - Fall Imaging Data CT scan - head: Radiologist's Impression: [address] [id number] Scan ReportSigned Patient: Kimberly Tony LMR#: [id number]: 1940Acct:[id number]/Sex: 80 / FDate of Service: 01/17/21Loc: EDAccession Number: [id number] Procedure: CT head/brain wo con Ordering Provider: Eligio Santana D.O. PROCEDURE: CT HEAD/BRAIN WO CON INDICATIONS: fall TECHNIQUE: Noncontrast 4.5 mm thick angled axial sections acquired from the foramen magnum to the vertex, with coronal and sagittal reformats. For radiation dose reduction, the following was used: automated exposure control, adjustment of mA and/or kV according to patient size. COMPARISON: [facility], CT, CT HEAD/BRAIN WO CON, 05/12/2018, 11:50. [facility], CT, HEAD WITHOUT CONTRAST, 06/20/2016, 18:43. FINDINGS: Image quality: Excellent. CSF spaces: Basal cisterns are patent. No extra-axial fluid collections. The ventricles are symmetric in size and shape. Brain: No intracranial bleeds or masses. There is cerebral volume loss for age, with resultant ventricular and sulcal prominence. There are periventricular and deep white matter chronic small vessel ischemic changes. There is intracranial internal carotid artery atherosclerosis. Skull and face: Calvarium and visualized facial bones appear intact, without suspicious lesions. Sinuses: Visualized sinuses and mastoids are clear. IMPRESSION: Mild microvascular atherosclerotic change in the deep white matter of each hemisphere, no trauma found. Dictated by: Gigi Ríos M.D. on 01/17/2021 at 12:13 Approved by: Gigi Ríos M.D. on 01/17/2021 at 12:13 Extremity x-ray #1: Radiologist's Impression: [address] [id number] ReportSigned Patient: Kimberly Tony LMR#: [id number]: 1940Acct:[id number]/Sex: 80 / FDate of Service: 01/17/21Loc: EDAccession Number: [id number] Procedure: XR shoulder LT min 2V Ordering Provider: Eligio Santana D.O. PROCEDURE: XR SHOULDER LT MIN 2V INDICATIONS: fall TECHNIQUE: 3 views of the shoulder were acquired. COMPARISON: [facility], CR, SHOULDER MINIMUM 2VIEW RIGHT, 08/01/2009, 11:39. FINDINGS: Bones: No fractures or dislocations. No suspicious bony lesions. Visualized ribs appear intact. Soft tissues: No suspicious soft tissue calcifications. 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 Dictated by: Gigi Ríos M.D. on 01/17/2021 at 12:12 Approved by: Gigi Ríos M.D. on 01/17/2021 at 12:12 [facility] Narrative Medical decision making narrative: Head CT is unremarkable, left shoulder x-ray shows no signs of dislocation or fracture. Cervical spine cleared by nexus criteria. Abrasions on the face closed as described above. She was given care instructions and return precautions. She expressed understanding and agreement. Discharge Plan Departure Patient Disposition: Home Clinical Impression: Fall, Facial laceration, Contusion of left shoulder Instructions: DI for Laceration Repair -- Complex, How to Prevent Falls, DI for Shoulder Pain Activity Restrictions/Additional Instructions: The stitches do need to be removed in 7-10 days. Until then you can shower like normal. You can cover it with some antibiotic ointment. Expect some significant swelling around her left eye over the next couple days. This should improve with time. There were no fractures noted on your x-ray appear shoulder. Recommend that you keep ice over the area. Take the pain medicine as needed. Contact your primary provider for follow-up. Return to the emergency department for any new or worsening symptoms. Prescriptions: New hydrocodone-acetaminophen 5-325 mg tablet 1 tab PO Q4-6H PRN (Reason: pain) Qty: 10 RF: 0 No Action lisinopril 10 mg tablet 10 mg PO DAILY Qty: 90 RF: 3 levothyroxine 125 mcg tablet 125 mcg PO DAILY Qty: 90 RF: 3 omeprazole 40 mg capsule,delayed release(DR/EC) 40 mg PO DAILY Qty: 90 RF: 3 metoprolol tartrate 25 mg tablet 12.5 mg PO BID Qty: 90 RF: 3 sodium,potassium,mag sulfates 17.5-3.13-1.6 gram recon soln 177 ml PO DAILY Qty: 354 RF: 0 amlodipine 10 mg tablet 10 mg PO DAILY Qty: 90 RF: 3 escitalopram oxalate [Lexapro] 5 mg tablet 5 mg PO DAILY Qty: 30 RF: 1 krill oil 500 mg capsule 500 mg PO DAILY RF: 0 cholecalciferol (vitamin D3) 1,000 unit capsule 1,000 unit PO DAILY RF: 0 aspirin [Adult Low Dose Aspirin] 81 mg tablet,delayed release (DR/EC) 81 mg PO DAILY RF: 0 [id number] R8-X3-T-mag--zinc 1 tab PO DAILY RF: 0 Referrals: Haley Dewey DO [Primary Care Provider] -
[2021-01-17] MEDS: HYDROCODONE/ACET 5/325 TABLET 1 TAB PO (12:50)
[2021-01-17 12:55] VITALS: BP 138/63; PULSE 79; RESP 18
== END 2021-01-17 13:05 | disposition home or self-care (01) ==
PROVIDERS: Emergency Provider Emergency Medicine; Family Provider Family Medicine; PCP Family Medicine
DX: S01.81XA Laceration without foreign body of other part of head, initial encounter (principal); M25.512 Pain in left shoulder; W19.XXXA Unspecified fall, initial encounter
CPT/HCPCS: 12014; 70450; 73030; 99284

== ENCOUNTER → 2021-01-18 14:12 | Outpatient (CLI) | payer BC, SELFPAY ==
--- NOTE | 2021-01-18 14:13 | DI.RAD.S_ITS ---
PROCEDURE: XR FOOT RT MIN 3V INDICATIONS: medial right foot pain TECHNIQUE: 3 views of the foot were acquired. COMPARISON: [facility], CR, XR FOOT RT MIN 3V, 05/09/2019, 23:10. FINDINGS: Bones: Age-indeterminate fracture of the base of the 1st metatarsal Severe great toe interphalangeal and 1st MTP osteoarthritis. Diffuse interphalangeal osteoarthritis of the lesser toes. Plantar and posterior calcaneal spurring. Diffuse hindfoot and midfoot degenerative sclerosis and spurring. Soft tissues: No tibiotalar joint effusion. Achilles tendon appears normal. IMPRESSION: Fracture of the base of the 1st metatarsal, although radiographically age-indeterminate and this may be subacute versus acute. Please correlate clinically. Severe right foot osteoarthritis as above Dictated by: Sherwin Huddleston M.D. on 01/18/2021 at 14:31 Approved by: Sherwin Huddleston M.D. on 01/18/2021 at 14:33
== END ==
PROVIDERS: Family Provider Family Medicine; PCP Family Medicine; Referring Provider Physician Assistant; Visit Provider Physician Assistant
DX: M79.671 Pain in right foot (principal); S92.311A Displaced fracture of first metatarsal bone, right foot, initial encounter for closed fracture; M19.071 Primary osteoarthritis, right ankle and foot; X58.XXXA Exposure to other specified factors, initial encounter
CPT/HCPCS: 73630

== ENCOUNTER → 2021-02-08 11:06 | Outpatient (CLI) | payer BC, SELFPAY ==
[2021-02-08 13:25] LABS: BUN Creatinine Ratio 22.2 (6-22); Blood Urea Nitrogen 12 mg/dL (7-17); Calcium 9.6 mg/dL (8.4-10.2); Carbon Dioxide 24 mmol/L (22-32); Chloride 95 mmol/L (98-107); Estimated Glomerular Filt Rate > 60.0 mL/min (>60); Glucose 116 mg/dL (80-110); HEMOLYSIS < 15 (0-50); Potassium 4.8 mmol/L (3.4-5.1); Sodium 129 mmol/L (137-145)
== END ==
PROVIDERS: Family Provider Family Medicine; PCP Family Medicine; Referring Provider Family Medicine; Visit Provider Family Medicine
DX: E87.1 Hypo-osmolality and hyponatremia (principal)
CPT/HCPCS: 36415; 80048

== ENCOUNTER → 2021-03-19 12:27 | Outpatient (CLI) | payer BC, SELFPAY ==
[2021-03-19 14:56] LABS: BUN Creatinine Ratio 13.7 (6-22); Blood Urea Nitrogen 7 mg/dL (7-17); Calcium 9.7 mg/dL (8.4-10.2); Carbon Dioxide 25 mmol/L (22-32); Chloride 97 mmol/L (98-107); Estimated Glomerular Filt Rate > 60.0 mL/min (>60); Glucose 105 mg/dL (80-110); HEMOLYSIS < 15 (0-50); Potassium 4.8 mmol/L (3.4-5.1); Sodium 132 mmol/L (137-145)
== END ==
PROVIDERS: Family Provider Family Medicine; PCP Family Medicine; Referring Provider Family Medicine; Visit Provider Family Medicine
DX: E87.1 Hypo-osmolality and hyponatremia (principal)
CPT/HCPCS: 36415; 80048

== ENCOUNTER → 2021-05-30 11:22 | Outpatient (CLI) | payer BC, SELFPAY ==
--- NOTE | 2021-05-30 11:23 | DI.MG.S_ITS ---
BILATERAL DIGITAL SCREENING MAMMOGRAM 3D/2D WITH CAD: 05/30/2021 CLINICAL: Routine screening. Comparison is made to exams dated: 05/04/2020 mammogram, 03/02/2019 mammogram, and 12/26/2017 mammogram - [facility]. There are scattered fibroglandular elements in both breasts. Current study was also evaluated with a Computer Aided Detection (CAD) system. There are benign calcifications in the right breast. No significant masses, calcifications, or other findings are seen in either breast. There has been no significant interval change. IMPRESSION: BENIGN There is no mammographic evidence of malignancy. A 1 year screening mammogram is recommended. This exam was interpreted at Station ID: [id number]. NOTE: For mammograms, a report in lay terms will be sent to the patient. Approximately 15% of breast malignancies will not be visualized mammographically. In the management of a palpable breast mass, a negative mammogram must not discourage biopsy of a clinically suspicious lesion. Electronically Signed By: Mathew conklin/dulce:05/30/2021 15:31:47 letter sent: Normal Exam ACR BI-RADS Category 2: Benign Finding(s) 3342F
== END ==
PROVIDERS: Family Provider Family Medicine; PCP Family Medicine; Referring Provider Family Medicine; Visit Provider Family Medicine
DX: Z12.31 Encounter for screening mammogram for malignant neoplasm of breast (principal)
CPT/HCPCS: 77063; 77067

== ENCOUNTER → 2021-08-15 12:01 | Outpatient (CLI) | payer BC, SELFPAY ==
--- NOTE | 2021-08-15 12:02 | DI.NM.S_ITS ---
PROCEDURE: MD RENAL FUNCTION W LASIX RADIOPHARMACEUTICAL: 9.2 mCi Tc-99m MAG3 IV and 40 mg furosemide IV. INDICATIONS: Ureter obstruction TECHNIQUE: The patient was hydrated orally before the examination was begun. After intravenous administration of Tc-99m MAG3, posterior abdominal radionuclide angiogram and sequential (1 minute each frame) renal images were obtained. A time-activity curve for each kidney was generated and analyzed. To evaluate for obstruction, the patient was given 40 mg furosemide via slow intravenous injection after the start of the examination. Sequential images were obtained for up to an additional 20 minutes. COMPARISON: [place], [place], MD RENAL FUNCTION W LASIX, 08/06/2020, 10:26. FINDINGS: Perfusion: There is normal vascular flow to both kidneys. Morphology: Both kidneys are normal in size and shape. No dilated collecting systems are seen. The ureters and bladder fill with tracer, and appear normal. Function: There is normal cortical tracer uptake within the left kidney with a time to maximal activity of 3 minutes. There is delayed uptake to the right kidney with a time to maximal activity of 16 minutes. The right kidney contributes 48% of total renal function. The left kidney contributes 52 % of total renal function. Lasix stimulation: After diuretic administration, there is prompt clearance of tracer activity from the renal collecting systems in both kidneys. The half-time of emptying of tracer activity from the right pelvicaliceal system is beyond the limits of the study. The half-time of emptying from the left pelvicaliceal system is 18 minutes. Normal emptying half-times are less than 10 minutes; borderline ranges are from 10 to 20 minutes. IMPRESSION: 1. Delayed right renal perfusion. Normal left renal perfusion. 2. Borderline delayed clearance of activity from left kidney. Significantly delayed clearance from the right kidney. 3. Findings are similar to the prior examination. Dictated by: Jose Theodore M.D. on 08/15/2021 at 13:41 Approved by: Jose Theodore M.D. on 08/15/2021 at 13:46
== END ==
PROVIDERS: Family Provider Family Medicine; PCP Family Medicine; Referring Provider Specialist; Visit Provider Specialist
DX: N13.5 Crossing vessel and stricture of ureter without hydronephrosis (principal)
CPT/HCPCS: 78708; A9562

== ENCOUNTER → 2021-10-08 14:23 | Outpatient (CLI) | payer BC, SELFPAY ==
[2021-10-08 15:11] LABS: COVID19 -Nasal RAPID Negative (Negative)
== END ==
PROVIDERS: Family Provider Family Medicine; PCP Family Medicine; Referring Provider Specialist; Visit Provider Specialist
DX: Z20.822 Contact with and (suspected) exposure to COVID-19 (principal)
CPT/HCPCS: 87635; C9803

== ENCOUNTER 2021-10-11 06:17 | Day surgery (SDC) | payer BC, SELFPAY ==
[2021-10-07 12:28] VITALS: BMI 29.0
[2021-10-11 06:45] VITALS: BP 120/72; PULSE 84; RESP 16; TEMP 37.1; O2SAT 98; BMI 29.0
[2021-10-11] MEDS: CIPROFLOXACIN 400 MG/200 ML PIGGYBACK 200 MG IV (07:17)
[2021-10-11] MEDS: LACTATED RINGERS 1,000 ML 42 ML IV (07:18)
--- NOTE | 2021-10-11 07:52 | PM.PREOP ---
Pre-operative Note COVID-19 Criteria for continued procedure: Expected advancement of disease process, Increased loss of function, Deterioration of the patient's condition or overall health, Delay expected to result in less-positive ultimate med/surg outcome and Non-surgical alternatives not available or appropriate per current SOC Interval Note History & Physical reviewed/Exam performed by Physician: Yes Changes to H&P: No
--- NOTE | 2021-10-11 08:19 | SUR.OPER ---
Lithotomy on padded OR bed, head on pillow, arms secured on padded arm boards at <90 degrees abduction. Legs secured in padded yellow fins stirrups.
[2021-10-11] MEDS: IOPAMIDOL 15 ML VIAL INJ (08:23)
[2021-10-11 08:48] VITALS: BP 97/45; PULSE 79; RESP 17; TEMP 36.3; O2SAT 96
[2021-10-11 08:52] VITALS: BP 103/48; PULSE 79; RESP 16; O2SAT 96
--- NOTE | 2021-10-11 08:57 | P.OP_ITS ---
Operative Date/Time/Diagnoses Date of procedure: 10/11/21 Time of procedure: 08:57 Pre-op diagnosis: 1. Right ureteropelvic junction obstruction Post-op diagnosis: same Procedure & Clinicians Procedure: 1. Cystoscopy/balloon dilation right ureteropelvic junction obstruction. 2. Cystoscopy/right retrograde pyelogram. 3. Cystoscopy/placement right ureteral stent (8 Slovenian by 22-32 cm multi-length. Same procedure as scheduled: Yes Indications: 1. Right ureteropelvic junction obstruction Surgeon: Maura Juárez Anesthesia Type: General Operative Notes Findings: 1. Urethra-mildly stenotic requiring gentle dilation and introduction of the 22 Slovenian panendoscope with obturator in place. Small associated urethral caruncle. 2. Bladder-grade 3 cystocele. Normal ureteral orifices bilaterally. 3. Right ureter there is a 2-3 cm area of narrowing at the ureteropelvic junction. 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 Closure Type: not applicable Specimen(s): none sent Applied: other (#8F x 22-32 cm multi-length double-J ureteral stent) Estimated Blood Loss (mL): 0 Blood products transfused: none Procedure in detail: The patient was positioned in supine and was administered general anesthesia. She was then repositioned semi lithotomy and the lower abdomen, genitalia, and groin were then prepped and draped in sterile fashion. A 22 Slovenian panendoscope was then introduced lower urinary tract with the obturator in place. Scope was then fitted with the 30 degree lens with the findings as described above. Next a 0.35 hybrid guidewire was advanced through the working channel of the scope and then advanced more proximally into the right collecting system under direct and fluoroscopic guidance. Over this an 18 [place]ian by 6 cm balloon dilating catheter was selected and advanced over the wire under direct and fluoroscopic guidance. The wire was then temporarily removed from the balloon dilating catheter and a right retrograde pyelogram was performed technical sales representatives intraoperative images were requested be saved. The hybrid guidewire was then through the distal lumen of the balloon dilating catheter under direct fluoroscopic guidance. Utilizing the radiographic markers on the proximal and distal end of the balloon the balloon was positioned appropriately across the right ureteropelvic junction. The balloon was then inflated to 18 atmospheres and held in position for 5 minutes. Balloon was then deflated and backloaded off the hybrid guidewire. Next, an 18 [place] by 22-32 cm multi-length stent was selected and advanced over the hybrid guidewire under direct and fluoroscopic guidance and positioned satisfactorily in the right upper collecting system. NO RETRIEVAL LINE WAS LEFT ATTACHED. Bladder was then drained completely and all instrumentation was removed. Patient was then repositioned supine, was awakened, [place] [facility] [place] in stable condition.
[2021-10-11 09:03] VITALS: BP 111/55; PULSE 79; RESP 16; TEMP 36.1; O2SAT 99
[2021-10-11 09:09] VITALS: BP 121/56; PULSE 80; RESP 17; TEMP 36.2; O2SAT 98
--- NOTE | 2021-10-11 09:26 | DI.RAD.S_ITS ---
PROCEDURE: XR ABDOMEN 1V INDICATIONS: RETROGRADE/DILITATION AT UPJ TECHNIQUE: 4 intraoperative fluoroscopic images of abdomen were obtained. COMPARISON: None. FINDINGS: Intraoperative fluoroscopic images of right abdomen shows severe right-sided hydronephrosis extending to the level of right UPJ. Under fluoroscopic guidance, a right-sided ureteral stent is placed. IMPRESSION: Severe right-sided hydronephrosis with suggestion of obstruction/stenosis at right UPJ. Placement of right-sided ureteral stent under fluoroscopic guidance. Dictated by: Mikal Guerrero M.D. on 10/11/2021 at 10:28 Approved by: Mikal Guerrero M.D. on 10/11/2021 at 10:29
[2021-10-11 09:35] VITALS: BP 127/69; PULSE 72; RESP 20; TEMP 36.6; O2SAT 95
--- NOTE | 2021-10-11 09:42 | SUR.PHASEII ---
Pt sat on side of bed, became dizzy, vs: 121/69- 76- 20.
--- NOTE | 2021-10-11 10:08 | SUR.PHASEII ---
Pt ready to go, left in stable condition, steady when up, up to BR voided prior to d/c.
== END 2021-10-11 10:00 | disposition home or self-care (01) ==
PROVIDERS: Family Provider Family Medicine; PCP Family Medicine; Referring Provider Specialist; Visit Provider Specialist
PROC: (CPT 52345; principal; 2021-10-11 07:45)
DX: N13.0 Hydronephrosis with ureteropelvic junction obstruction (principal); N35.92 Unspecified urethral stricture, female; N36.2 Urethral caruncle; N81.10 Cystocele, unspecified; I10 Essential (primary) hypertension; E03.9 Hypothyroidism, unspecified; F41.9 Anxiety disorder, unspecified; Z87.440 Personal history of urinary (tract) infections; K21.9 Gastro-esophageal reflux disease without esophagitis
CPT/HCPCS: 52345; 52332; 74018; 76000; J0744; J2405; J2704; J3010

== ENCOUNTER → 2021-11-07 09:59 | Outpatient (CLI) | payer BC, SELFPAY | PROVIDERS: Family Provider Family Medicine; PCP Family Medicine; Referring Provider Specialist; Visit Provider Specialist | DX: R30.0 Dysuria (principal) | CPT/HCPCS: 87077; 87086; 87186 ==

== ENCOUNTER → 2021-11-12 10:10 | Outpatient (CLI) | payer BC, SELFPAY ==
--- NOTE | 2021-11-12 10:11 | DI.NM.S_ITS ---
PROCEDURE: PA RENAL FUNCTION W LASIX RADIOPHARMACEUTICAL: 9.9 mCi Tc-99m MAG3 IV and 40 mg furosemide IV. INDICATIONS: Post operative TECHNIQUE: The patient was hydrated orally before the examination was begun. After intravenous administration of Tc-99m MAG3, posterior abdominal radionuclide angiogram and sequential (1 minute each frame) renal images were obtained. A time-activity curve for each kidney was generated and analyzed. To evaluate for obstruction, the patient was given 40 mg furosemide via slow intravenous injection after the start of the examination. Sequential images were obtained for up to an additional 20 minutes. COMPARISON: [place], PA RENAL FUNCTION W LASIX, 03/12/2018, 11:15. [place], RENAL IMAGING WITH LASIX, 02/25/2017, 9:16. [place], RENAL IMAGING WITH LASIX, 08/15/2016, 12:46. [place] RENAL W LASIX, 05/07/2016, 10:51. [place], RENAL IMAGING WITH LASIX, 04/29/2016, 10:12. [place], RENAL IMAGING WITH LASIX, 02/18/2016, 13:17. [place], [place] RENAL FUNCTION W LASIX, 08/01/2019, 10:59. [place] RENAL FUNCTION W LASIX, 08/06/2020, 10:26. [place] RENAL FUNCTION W LASIX, 08/15/2021, 12:35. FINDINGS: Perfusion: There is normal vascular flow to both kidneys. Morphology: Both kidneys are normal in size and shape. There is dilated right renal collecting system. The ureters and bladder fill with tracer, and appear normal. Function: Left kidney demonstrates normal cortical tracer uptake and excretion, with [id number]-hjsk activity ranging from 3 to 5 minutes. The left kidney contributes 52.9% of total renal function. Patulous right renal collecting system with mildly delayed cortical tracer clearance. The right kidney contributes 47.1% of total renal function. Lasix stimulation: After diuretic administration, there is prompt clearance of tracer activity from the renal collecting systems in both kidneys. The half-time of emptying of tracer activity from the right pelvicaliceal system is >20 minutes. The half-time of emptying from the left pelvicaliceal system is 8 minutes. Normal emptying half-times are less than 10 minutes; borderline ranges are from 10 to 20 minutes. IMPRESSION: 1. Persistent right UPJ obstruction. 2. Normal left renal function. 3. Stable split renal function. Right kidney contributes 47.1% of total renal function. Left kidney contributes 52.9% of total renal function. Dictated by: Cheryl Diaz M.D. on 11/12/2021 at 14:34 Approved by: Cheryl Diaz M.D. on 11/12/2021 at 14:44
== END ==
PROVIDERS: Family Provider Family Medicine; PCP Family Medicine; Referring Provider Specialist; Visit Provider Specialist
DX: N13.5 Crossing vessel and stricture of ureter without hydronephrosis (principal)
CPT/HCPCS: 78708; A9562

== ENCOUNTER → 2021-11-21 11:31 | Outpatient (CLI) | payer BC, SELFPAY | PROVIDERS: Family Provider Family Medicine; PCP Family Medicine; Visit Provider Specialist | DX: R30.0 Dysuria (principal); N13.5 Crossing vessel and stricture of ureter without hydronephrosis; N95.2 Postmenopausal atrophic vaginitis; Z87.440 Personal history of urinary (tract) infections | CPT/HCPCS: 81002; 87086; 99215 ==

== ENCOUNTER → 2021-12-03 07:19 | Outpatient (CLI) | payer BC, SELFPAY ==
[2021-12-03 08:31] LABS: BUN Creatinine Ratio 12.7 (6-22); Blood Urea Nitrogen 7 mg/dL (7-17); Calcium 9.1 mg/dL (8.4-10.2); Carbon Dioxide 24 mmol/L (22-32); Chloride 96 mmol/L (98-107); Estimated Glomerular Filt Rate > 60.0 mL/min (>60); Glucose 195 mg/dL (80-110); HEMOLYSIS < 15 (0-50); Potassium 4.3 mmol/L (3.4-5.1); Sodium 130 mmol/L (137-145)
[2022-01-08 10:46] LABS: Blood Urea Nitrogen 7 mg/dL (7-17); Calcium 8.9 mg/dL (8.4-10.2); Carbon Dioxide 25 mmol/L (22-32); Chloride 95 mmol/L (98-107); Estimated Glomerular Filt Rate > 60 mL/min (>60); Glucose 189 mg/dL (80-110); HEMOLYSIS < 15 (0-50); Potassium 4.3 mmol/L (3.4-5.1); Sodium 130 mmol/L (137-145)
== END ==
PROVIDERS: Family Provider Family Medicine; PCP Family Medicine; Referring Provider Family Medicine; Visit Provider Family Medicine
DX: E87.1 Hypo-osmolality and hyponatremia (principal)
CPT/HCPCS: 36415; 80048

== ENCOUNTER → 2022-02-07 11:40 | Outpatient (CLI) | payer BC, SELFPAY ==
[2022-02-07 12:09] LABS: Hemoglobin A1C% w Est Avg Glu 6.2 % (4.0-6.0)
== END ==
PROVIDERS: Family Provider Family Medicine; PCP Family Medicine; Referring Provider Family Medicine; Visit Provider Family Medicine
DX: R73.9 Hyperglycemia, unspecified (principal)
CPT/HCPCS: 36415; 83036

== ENCOUNTER → 2022-02-08 09:59 | Outpatient (CLI) | payer BC, SELFPAY ==
--- NOTE | 2022-02-08 10:02 | DI.RAD.S_ITS ---
PROCEDURE: XR KNEE LT 3V INDICATIONS: Knee Pain. TECHNIQUE: 3 views of the knee were acquired. COMPARISON: [facility], CR, XR KNEE LT 3V, 05/11/2019, 13:12. FINDINGS: Bones: No fractures or dislocations. No suspicious bony lesions. Moderate medial and patellofemoral arthritic narrowing. Patellar spur is present. Bony prominence along the medial proximal tibial metadiaphysis suspicious for sessile osteochondroma, unchanged. Soft tissues: Mild joint effusion. No suspicious soft tissue calcifications. IMPRESSION: No visualized acute fracture or dislocation. However, if clinical concern and/or pain persist, short interval imaging followup in 7-10 days is recommended, as occult injury cannot be definitively excluded. Dictated by: Gladis Ponce M.D. on 02/08/2022 at 10:56 Approved by: Gladis Ponce M.D. on 02/08/2022 at 10:57
== END ==
PROVIDERS: Family Provider Family Medicine; PCP Family Medicine; Referring Provider Physician Assistant; Visit Provider Physician Assistant
DX: M25.562 Pain in left knee (principal)
CPT/HCPCS: 73562

== ENCOUNTER → 2022-02-20 11:35 | Outpatient (CLI) | payer BC, SELFPAY ==
[2022-02-20 13:14] LABS: Influenza A - CEPHEID Flu A NEGATIVE (NEGATIVE); Influenza B - CEPHEID Flu B NEGATIVE (NEGATIVE)
[2022-02-20 13:45] LABS: COVID-19 CEPHEID PCR (VTM/NP) Negative (Negative)
== END ==
PROVIDERS: Family Provider Family Medicine; PCP Family Medicine; Visit Provider Physician Assistant
DX: R05.9 Cough, unspecified (principal)
CPT/HCPCS: 0240U

== ENCOUNTER 2022-02-20 12:15 | Inpatient (IN) | payer MEDICARE, BC, SELFPAY ==
[2022-02-20] VITALS (16 sets, daily range): BP systolic 109–135; BP diastolic 52–63; PULSE 89–109; RESP 16–18; TEMP 36.2–36.8; O2SAT 93–98; BMI 26.2; BMI 26.4
--- NOTE | 2022-02-20 13:26 | ED_ITS ---
HPI - URI/Sore Throat <Home Sellers PA-C - Last Filed: 02/20/22 19:37> General Chief Complaint: Upper Respiratory Symptoms Stated Complaint: COVID Symptoms Time Seen by Provider: 02/20/22 12:59 Source: patient Mode of arrival: Ambulatory History of Present Illness HPI Narrative: Patient is an 82-year-old female who presents to the emergency department for evaluation fatigue, chills, vomiting, and diarrhea. Patient explains that she has been experiencing symptoms of nonbloody nonbilious vomiting, nonbloody diarrhea, nausea, chills, fatigue, and lower abdominal pain since 02/17/2022. Patient was seen at the walk-in clinic prior to arriving to the emergency department where he was found to have slightly low blood pressure. Patient explains that she believes that the lower abdominal pain that she is ex periencing is associated with her diarrhea. She denies any fever, chills, chest pain, cough, shortness of breath, constipation, dysuria, hematuria, sore throat, earache, rash, dizziness, changes in vision or hearing, or any other concerning symptoms. No further concerns were voiced at this time. Related Data Home Medications Medication Instructions Recorded Confirmed aspirin 81 mg tablet,delayed 81 mg PO BEDTIME 03/01/18 02/20/22 release (Adult Low Dose Aspirin) cholecalciferol (vitamin D3) 25 1,000 unit PO DAILY 03/01/18 02/20/22 mcg (1,000 unit) capsule krill oil 500 mg capsule 500 mg PO DAILY 03/01/18 02/20/22 [id number]--[id number] 1 tab PO Q OTHER DAY 10/01/20 02/20/22 amlodipine 10 mg tablet 10 mg PO BEDTIME 02/20/22 02/20/22 lisinopril 10 mg tablet 10 mg PO BEDTIME 02/20/22 02/20/22 Previous Rx's Medication Instructions Recorded omeprazole 40 mg capsule,delayed 40 mg PO DAILY #90 caps 06/17/21 release metoprolol tartrate 25 mg tablet 12.5 mg PO BID #90 tabs 07/15/21 levothyroxine 125 mcg tablet 125 mcg PO DAILY #90 tabs 11/18/21 estradiol (Estrace) 1 g vaginal 2XW #42.5 grams 11/21/21 bupropion HCl (smoking deter) 150 150 mg PO BID #60 tabs 12/03/21 mg tablet,12 hr sustained-release(smoking deterrent) Allergies Allergy/AdvReac Type Severity Reaction Status Date / Time shellfish derived Allergy Severe MUSSELS - Verified 02/20/22 12:21 ANAPHYLAXIS amoxicillin Allergy Mild RASH, Verified 02/20/22 12:21 DIARRHEA nitrofurantoin AdvReac Severe diarrhea,vomiting, Verified 02/20/22 12:21 rectal bleeding Review of Systems <Home Sellers PA-C - Last Filed: 02/20/22 19:37> Constitutional Constitutional: Reports chills, Reports fatigue, Denies fever(s), Denies frequent falls, Denies lethargy and Denies weakness ENT Ears, Nose, Mouth, and Throat: Denies neck pain Cardiovascular Cardiovascular: Denies chest pain, Denies irregular heart rhythm, Denies lighth eadedness, Denies palpitations, Denies dyspnea, Denies dyspnea on exertion and Denies orthopnea Respiratory Respiratory: Denies dyspnea and Denies dyspnea on exertion Gastrointestinal Gastrointestinal: Reports abdominal pain, Denies change in bowel habits, Denies constipation, Reports diarrhea, Reports nausea and Reports vomiting Genitourinary Genitourinary: Denies hematuria, Denies flank pain, Denies urinary incontinence and Denies urinary urgency Musculoskeletal Musculoskeletal: Denies back pain, Denies muscle weakness, Denies neck pain, Denies numbness and Denies tingling Integumentary/Breasts Skin/Breast: Denies pruritus, Denies erythema, Denies rash and Denies wounds Neurologic Neurologic: Denies frequent falls, Denies numbness, Denies tingling and Denies weakness Endocrine Endocrine: Reports fatigue and Denies palpitations Patient History <Home Sellers PA-C - Last Filed: 02/20/22 19:37> Medical History Anxiety (2014) Coppola's syndrome Cataract (2015) Colon polyps Congenital stricture of urethra Depression (2014) Giant cell arteritis Graves' disease [place]fe[place] History of UTI Hypertension Hypothyroidism 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 Precancerous skin lesion (~2006) Shoulder pain (2015) Tinnitus (2009) Surgical History Anesthesia H/O hysterectomy for benign disease (1994) History of abdominoplasty (1981) History of bilateral tubal ligation (1969) History of cataract surgery (2014) History of section (1969) History of cholecystectomy History of partial hysterectomy (1989) History of tonsillectomy (1945) History of ureter repair (2013) Hx of cystoscopy (03/24/16) Hx of thyroid irradiation (1989) Status post tubal ligation Family History Brother Heart disease Brother Emphysema of lung Family/Other Influenza Father Heart attack Grandmother Esophageal cancer Mother Esophageal cancer Grandfather Heart attack Sister Pancreatic cancer Unknown Heart disease Smoker Grandfather No problems noted. Grandmother No problems noted. Social History marital status: household members: spouse occupational status: previously employed and other (Retired from the [employer]) Smoking Status: Never smoker alcohol intake: current substance use type: does not use Smoking Status: Never smoker alcohol intake frequency: 0-2 drinks per day Substance Use Type: does not use Exam <Home Sellers PA-C - Last Filed: 02/20/22 19:37> Narrative Exam Narrative: GENERAL: 82 year old patient appears stated age. Well-developed patient, in no acute distress. HEAD: Atraumatic. Normocephalic. EYES: Pupils equal round and reactive. Extraocular motions intact. No scleral icterus. No injection or drainage. ENT: Nose without bleeding, purulent drainage. Throat without erythema, tonsillar hypertrophy or exudate. Airway patent. NECK: Trachea midline. Non tender CARDIOVASCULAR: Regular rate and rhythm without murmurs, gallops, or rubs. RESPIRATORY: Clear to auscultation. Breath sounds equal bilaterally. No wheezes, rales, or rhonchi. GASTROINTESTINAL: Abdomen soft, nondistended. Generalized tenderness to palpation throughout all 4 quadrants of the abdomen with no significant rebound tenderness. No masses noted. No significant overlying erythema or ecchymosis appreciated. Bowel sounds normal. EXTREMITIES: No edema or joint tenderness. BACK: Nontender without deformity or crepitance. No flank tenderness. NEURO: AOx3. SKIN: No rash or erythema of visible areas Initial Vital Signs Initial Vital Signs: Vital Signs Temperature 98.2 F 02/20/22 12:21 Pulse Rate 109 H 02/20/22 12:21 Respiratory Rate 18 02/20/22 12:21 Blood Pressure 116/58 L 02/20/22 12:21 Pulse Oximetry 98 02/20/22 12:21 Oxygen Delivery Method 02/20/22 12:21 <Mitra Apodaca DO - Last Filed: 02/21/22 07:26> Initial Vital Signs Initial Vital Signs: Vital Signs Temperature 98.2 F 02/20/22 12:21 Pulse Rate 109 H 02/20/22 12:21 Respiratory Rate 18 02/20/22 12:21 Blood Pressure 116/58 L 02/20/22 12:21 Pulse Oximetry 98 02/20/22 12:21 Oxygen Delivery Method 02/20/22 12:21 Course <Home Sellers PA-C - Last Filed: 02/20/22 19:37> Course Course Narrative: Awaiting results of COVID and flu swabs that were performed at the walk-in clinic. CBC, CMP, lipase, lactic, blood cultures obtained. Patient provided 1 L of normal saline in the emergency department. Orders Ordered: ED Orders 02/21/22 03:06 Basic Metabolic Panel DAILY C-Reactive Protein Quant Urgent Complete Blood Count AUTO DIFF DAILY Erythrocyte Sedimentation Rate Urgent Magnesium DAILY Procalcitonin DAILY 02/22/22 05:00 Basic Metabolic Panel DAILY Complete Blood Count AUTO DIFF DAILY Magnesium DAILY 02/23/22 05:00 Basic Metabolic Panel DAILY Complete Blood Count AUTO DIFF DAILY Magnesium DAILY Acetaminophen (Acetaminophen 325 Mg Tablet) 975 mg PO Q8HR PRN PRN Reason: Pain, Mild (1-3) Aspirin (Aspirin Ec 81 Mg Tablet) 81 mg PO BEDTIME [facility] Bupropion HCl (Bupropion Sr 150 Mg Tab) 150 mg PO BID [facility] Enoxaparin Sodium (Enoxaparin 40 Mg/0.4 Ml Syringe) 40 mg SUBCUT DAILY [facility] Lactated Ringer's (Lactated Ringers) 1,000 mls @ 100 mls/hr IV CONT [facility] Last Admin: 02/20/22 20:51 Dose: 100 mls/hr Documented By: JOSH Ceftriaxone Sodium 1,000 mg/ (Sodium Chloride) 100 mls @ 200 mls/hr IV Q24H [facility] Metronidazole (Flagyl) 500 mg in 100 mls @ 100 mls/hr IV Q8H [facility] Last Admin: 02/21/22 06:32 Dose: 100 mls/hr Documented By: Infusion: 02/20/22 23:49 Dose: 0 mls/hr Documented By: Admin: 02/20/22 22:00 Dose: 100 mls/hr Documented By: JOSH Levothyroxine Sodium (Levothyroxine 125 Mcg Tablet) 125 mcg PO 0600 [facility] Last Admin: 02/21/22 06:32 Dose: 125 mcg Documented By: JOSH Naloxone HCl (Naloxone 0.4 Mg/Ml Vial) 0.2 mg IV Q2MIN PRN PRN Reason: Opiate Reversal Ondansetron HCl (Ondansetron 4 Mg/2 Ml Inj) 4 mg IV Q8HR PRN PRN Reason: Nausea And Vomiting Oxycodone HCl (Oxycodone Ir 5 Mg Tablet) 5 mg PO Q4HR PRN PRN Reason: Pain, Moderate (4-6) Oxycodone HCl (Oxycodone Ir 10 Mg Tablet) 10 mg PO Q4HR PRN PRN Reason: Pain, Severe (7-10) Pantoprazole Sodium (Pantoprazole Dr 40 Mg Tablet) 40 mg PO 0700 [facility] Last Admin: 02/21/22 06:32 Dose: 40 mg Documented By: JOSH Potassium Chloride (Potassium Chloride 20 Meq Tab) 40 meq PO NOW ONE Stop: 02/21/22 08:01 Discontinued Medications Sodium Chloride (Normal Saline 0.9%) 1,000 mls @ 1,000 mls/hr IV BOLUS ONE Stop: 02/20/22 14:23 Last Infusion: 02/20/22 15:26 Dose: 0 mls/hr Documented By: Admin: 02/20/22 13:30 Dose: 1,000 mls/hr Documented By: GEOVANNI Ceftriaxone Sodium 2,000 mg/ (Sodium Chloride) 100 mls @ 200 mls/hr IV NOW ONE Stop: 02/20/22 16:15 Last Infusion: 02/20/22 17:53 Dose: 0 mls/hr Documented By: Admin: 02/20/22 16:41 Dose: 200 mls/hr Documented By: DANNY Metronidazole (Flagyl) 500 mg in 100 mls @ 100 mls/hr IV NOW ONE Stop: 02/20/22 17:13 Last Infusion: 02/20/22 19:25 Dose: 0 mls/hr Documented By: Admin: 02/20/22 16:42 Dose: 100 mls/hr Documented By: DANNY Sodium Chloride (Normal Saline 0.9%) 1,823.43 mls @ 607.81 mls/hr 30 ml/kg infuse over 3 hr (1823.43 ml) IV NOW ONE Stop: 02/20/22 19:17 Last Infusion: 02/20/22 20:07 Dose: 0 mls/hr Documented By: Admin: 02/20/22 16:41 Dose: 607.81 mls/hr Documented By: DANNY Consultations Consultation #1: Consult with Dr. Cho (internal medicine). He accepts patient for inpatient admission. Recommends ordering C diff panel, beginning 30 milligram/kilogram of fluid bolus and to treat for diverticulitis with IV ceftriaxone and Flagyl. Time: 16:05 Vital Signs Vital signs: Vital Signs - 8 hr 02/20/22 12:21 02/20/22 13:12 02/20/22 13:14 Temperature 98.2 F Pulse Rate 109 H 96 H Respiratory Rate 18 Blood Pressure 116/58 L 110/58 L Pulse Oximetry 98 96 Oxygen Delivery Method Room Air 02/20/22 13:14 02/20/22 13:30 02/20/22 13:30 Temperature Pulse Rate 98 H 96 H Respiratory Rate Blood Pressure 109/55 L Pulse Oximetry 96 94 Oxygen Delivery Method 02/20/22 14:00 02/20/22 14:00 02/20/22 14:30 Temperature Pulse Rate 96 H Respiratory Rate Blood Pressure 109/52 L 111/58 L Pulse Oximetry 96 Oxygen Delivery Method 02/20/22 14:30 02/20/22 15:00 02/20/22 15:00 Temperature Pulse Rate 89 90 Respiratory Rate Blood Pressure 129/59 L Pulse Oximetry 97 98 Oxygen Delivery Method 02/20/22 15:25 02/20/22 15:25 02/20/22 15:30 Temperature Pulse Rate 97 H Respiratory Rate Blood Pressure 135/61 126/61 Pulse Oximetry 98 Oxygen Delivery Method 02/20/22 15:30 02/20/22 16:00 02/20/22 16:00 Temperature Pulse Rate 98 H 98 H Respiratory Rate Blood Pressure 114/57 L Pulse Oximetry 96 95 Oxygen Delivery Method <Mitra Apodaca, DO - Last Filed: 02/21/22 07:26> Orders Ordered: ED Orders 02/21/22 03:06 Basic Metabolic Panel DAILY C-Reactive Protein Quant Urgent Complete Blood Count AUTO DIFF DAILY Erythrocyte Sedimentation Rate Urgent Magnesium DAILY Procalcitonin DAILY 02/22/22 05:00 Basic Metabolic Panel DAILY Complete Blood Count AUTO DIFF DAILY Magnesium DAILY 02/23/22 05:00 Basic Metabolic Panel DAILY Complete Blood Count AUTO DIFF DAILY Magnesium DAILY Acetaminophen (Acetaminophen 325 Mg Tablet) 975 mg PO Q8HR PRN PRN Reason: Pain, Mild (1-3) Aspirin (Aspirin Ec 81 Mg Tablet) 81 mg PO BEDTIME [facility] Bupropion HCl (Bupropion Sr 150 Mg Tab) 150 mg PO BID [facility] Enoxaparin Sodium (Enoxaparin 40 Mg/0.4 Ml Syringe) 40 mg SUBCUT DAILY [facility] Lactated Ringer's (Lactated Ringers) 1,000 mls @ 100 mls/hr IV CONT [facility] Last Admin: 02/20/22 20:51 Dose: 100 mls/hr Documented By: JOSH Ceftriaxone Sodium 1,000 mg/ (Sodium Chloride) 100 mls @ 200 mls/hr IV Q24H [facility] Metronidazole (Flagyl) 500 mg in 100 mls @ 100 mls/hr IV Q8H [facility] Last Admin: 02/21/22 06:32 Dose: 100 mls/hr Documented By: Infusion: 02/20/22 23:49 Dose: 0 mls/hr Documented By: Admin: 02/20/22 22:00 Dose: 100 mls/hr Documented By: JOSH Levothyroxine Sodium (Levothyroxine 125 Mcg Tablet) 125 mcg PO 0600 [facility] Last Admin: 02/21/22 06:32 Dose: 125 mcg Documented By: JOSH Naloxone HCl (Naloxone 0.4 Mg/Ml Vial) 0.2 mg IV Q2MIN PRN PRN Reason: Opiate Reversal Ondansetron HCl (Ondansetron 4 Mg/2 Ml Inj) 4 mg IV Q8HR PRN PRN Reason: Nausea And Vomiting Oxycodone HCl (Oxycodone Ir 5 Mg Tablet) 5 mg PO Q4HR PRN PRN Reason: Pain, Moderate (4-6) Oxycodone HCl (Oxycodone Ir 10 Mg Tablet) 10 mg PO Q4HR PRN PRN Reason: Pain, Severe (7-10) Pantoprazole Sodium (Pantoprazole Dr 40 Mg Tablet) 40 mg PO 0700 [facility] Last Admin: 02/21/22 06:32 Dose: 40 mg Documented By: JOSH Potassium Chloride (Potassium Chloride 20 Meq Tab) 40 meq PO NOW ONE Stop: 02/21/22 08:01 Discontinued Medications Sodium Chloride (Normal Saline 0.9%) 1,000 mls @ 1,000 mls/hr IV BOLUS ONE Stop: 02/20/22 14:23 Last Infusion: 02/20/22 15:26 Dose: 0 mls/hr Documented By: Admin: 02/20/22 13:30 Dose: 1,000 mls/hr Documented By: GEOVANNI Ceftriaxone Sodium 2,000 mg/ (Sodium Chloride) 100 mls @ 200 mls/hr IV NOW ONE Stop: 02/20/22 16:15 Last Infusion: 02/20/22 17:53 Dose: 0 mls/hr Documented By: Admin: 02/20/22 16:41 Dose: 200 mls/hr Documented By: DANNY Metronidazole (Flagyl) 500 mg in 100 mls @ 100 mls/hr IV NOW ONE Stop: 02/20/22 17:13 Last Infusion: 02/20/22 19:25 Dose: 0 mls/hr Documented By: Admin: 02/20/22 16:42 Dose: 100 mls/hr Documented By: DANNY Sodium Chloride (Normal Saline 0.9%) 1,823.43 mls @ 607.81 mls/hr 30 ml/kg infuse over 3 hr (1823.43 ml) IV NOW ONE Stop: 02/20/22 19:17 Last Infusion: 02/20/22 20:07 Dose: 0 mls/hr Documented By: Admin: 02/20/22 16:41 Dose: 607.81 mls/hr Documented By: DANNY Vital Signs Vital signs: Vital Signs - 8 hr 02/20/22 12:21 02/20/22 13:12 02/20/22 13:14 Temperature 98.2 F Pulse Rate 109 H 96 H Respiratory Rate 18 Blood Pressure 116/58 L 110/58 L Pulse Oximetry 98 96 Oxygen Delivery Method Room Air 02/20/22 13:14 02/20/22 13:30 02/20/22 13:30 Temperature Pulse Rate 98 H 96 H Respiratory Rate Blood Pressure 109/55 L Pulse Oximetry 96 94 Oxygen Delivery Method 02/20/22 14:00 02/20/22 14:00 02/20/22 14:30 Temperature Pulse Rate 96 H Respiratory Rate Blood Pressure 109/52 L 111/58 L Pulse Oximetry 96 Oxygen Delivery Method 02/20/22 14:30 02/20/22 15:00 02/20/22 15:00 Temperature Pulse Rate 89 90 Respiratory Rate Blood Pressure 129/59 L Pulse Oximetry 97 98 Oxygen Delivery Method 02/20/22 15:25 02/20/22 15:25 02/20/22 15:30 Temperature Pulse Rate 97 H Respiratory Rate Blood Pressure 135/61 126/61 Pulse Oximetry 98 Oxygen Delivery Method 02/20/22 15:30 02/20/22 16:00 02/20/22 16:00 Temperature Pulse Rate 98 H 98 H Respiratory Rate Blood Pressure 114/57 L Pulse Oximetry 96 95 Oxygen Delivery Method MDM - URI/Sore Throat <Home Sellers PA-C - Last Filed: 02/20/22 19:37> Lab Data Result diagrams: 02/21/22 03:06 02/21/22 03:06 Labs: Lab Results 02/20/22 02/20/22 02/20/22 Range/Units 13:10 14:01 14:01 WBC 20.5 H (4.5-11.0) X10^3/uL RBC 4.69 (4.0-5.2) X10^6/uL Hgb 14.8 (12.0-16.0) g/dL Hct 44.0 (36-46) % MCV 93.8 (80-100) fL MCH 31.4 (26-34) PG MCHC 33.5 (30-36) % RDW 13.5 (11.6-14.8) % Plt Count 419 H (150-400) X10^3/uL Neut % (Auto) 82.5 H (50-75) % Lymph % (Auto) 6.5 L (25-40) % [place] % (Auto) 10.6 (3-14) % Eos % (Auto) 0.2 L (2-4) % Baso % (Auto) 0.2 (0-2) % Neut # (Auto) 46041 H (5534-0752) /uL Lymph # (Auto) 1300 (6122-7692) /uL [place] # (Auto) 2200 H (0-900) /uL Eos # (Auto) 0 (0-450) /uL Baso # (Auto) 0 (0-100) /uL Sodium 124 L (137-145) mmol/L Potassium 4.1 (3.4-5.1) mmol/L Chloride 89 L (98-107) mmol/L Carbon Dioxide 23 (22-32) mmol/L BUN 27 H (7-17) mg/dL Creatinine 1.67 H (0.52-1.04) mg/dL Estimated GFR 30 L (>60) mL/min BUN/Creatinine Ratio 16.2 (6-22) Glucose 125 H (80-110) mg/dL Lactate 2.1 (0.7-2.1) mmol/L Calcium 9.2 (8.4-10.2) mg/dL Total Bilirubin 0.7 (0.2-1.3) mg/dL AST 54 H (14-36) IU/L ALT 68 H (<35) IU/L Alkaline Phosphatase 81 (38-126) U/L Total Protein 7.5 (6.3-8.2) g/dL Albumin 4.0 (3.5-5.0) g/dL Globulin 3.5 (1.7-4.1) g/dL Albumin/Globulin Ratio 1.1 (1.0-2.8) Lipase 83 (23-300) U/L Ur Bilirubin Confirm (Negative) Urine RBC (0-5/HPF) Urine WBC (0-5/HPF) Ur Squamous Epith Cells (0-5/HPF) Ur Renal Epithelial Cell (0-1/HPF) Urine Bacteria (None) Ur Culture Indicated? 02/20/22 02/20/22 Range/Units 15:21 15:21 WBC (4.5-11.0) X10^3/uL RBC (4.0-5.2) X10^6/uL Hgb (12.0-16.0) g/dL Hct (36-46) % MCV (80-100) fL MCH (26-34) PG MCHC (30-36) % RDW (11.6-14.8) % Plt Count (150-400) X10^3/uL Neut % (Auto) (50-75) % Lymph % (Auto) (25-40) % [place] % (Auto) (3-14) % Eos % (Auto) (2-4) % Baso % (Auto) (0-2) % Neut # (Auto) (3926-5188) /uL Lymph # (Auto) (3431-2851) /uL [place] # (Auto) (0-900) /uL Eos # (Auto) (0-450) /uL Baso # (Auto) (0-100) /uL Sodium (137-145) mmol/L Potassium (3.4-5.1) mmol/L Chloride (98-107) mmol/L Carbon Dioxide (22-32) mmol/L BUN (7-17) mg/dL Creatinine (0.52-1.04) mg/dL Estimated GFR (>60) mL/min BUN/Creatinine Ratio (6-22) Glucose (80-110) mg/dL Lactate (0.7-2.1) mmol/L Calcium (8.4-10.2) mg/dL Total Bilirubin (0.2-1.3) mg/dL AST (14-36) IU/L ALT (<35) IU/L Alkaline Phosphatase (38-126) U/L Total Protein (6.3-8.2) g/dL Albumin (3.5-5.0) g/dL Globulin (1.7-4.1) g/dL Albumin/Globulin Ratio (1.0-2.8) Lipase (23-300) U/L Ur Bilirubin Confirm Negative (Negative) Urine RBC None seen (0-5/HPF) Urine WBC >100/hpf H (0-5/HPF) Ur Squamous Epith Cells 0-1 /hpf (0-5/HPF) Ur Renal Epithelial Cell 1-5/hpf H (0-1/HPF) Urine Bacteria Many (>30) H (None) Ur Culture Indicated? Culture not indicate Urine Dip Bedside Urine Glucose Negative Bedside Urine Bilirubin ++ 2 Bedside Urine Ketone +/- 5 Urine Specific [place] 1.030 Bedside Urine Occult Blood ++ Bedside Urine pH 6.0 Bedside Urine Protein ++ 100 Bedside Urine Urobilinogen +/- 1mg Bedside Urine Nitrite - Negative Bedside Urine Leukocytes ++ [address] scan - abdomen/pelvis: Radiologist's Impression: PROCEDURE:? CT ABDOMEN PELVIS WO CON ? INDICATIONS:? Diffuse abdominal pain ? TECHNIQUE:? Axial sections were acquired from the lung bases to the pubic symphysis.? Coronal and sagittal reformats were performed.? For radiation dose reduction, the following was used: ?automated exposure control, adjustment of mA and/or kV according to patient size.? ? COMPARISON:? [facility], CT, IVP (ABD & PEL WWO CONTRAST), 01/17/2016, 12:30. ? FINDINGS:? Image quality:? Excellent.? ? Lung bases:? Mild scarring at the right lung base. Heart:? Aortic valvular and mitral annular calcification.? Normal size heart.? Small hiatal hernia. ? URINARY: Right Kidney:? Right-sided nephroureteral stent.? Severe upper pole hydronephrosis and cortical thinning.? Punctate calcification in the right midpole. Right Ureter:? Stent in place.? No perinephric inflammation. ? Left Kidney:? No hydronephrosis or stones.? Mildly prominent extrarenal pelvis.? Left Ureter:? No hydroureter or stones.? ? Bladder:? Decompressed.? No stones.? The distal end of the nephroureteral stent is in adequate position.? No suspicious wall thickening. ? ABDOMEN: Liver:? Normal unenhanced appearance. Gallbladder:? Surgically absent. Biliary ducts:? Nondilated. Pancreas:? Normal contour.? No peripancreatic inflammation. Spleen:? Unremarkable.? ? Adrenal Glands:? No nodules. ? Stomach and Bowel:? Circumferential long segment colon wall thickening from the splenic flexure distally through the sigmoid colon.? There is mild diffuse subserosal inflammation.? Moderate diverticulosis is present in the distal sigmoid.? No visible extraluminal gas.? Mild pericolonic inflammatory changes and fluid dependently in the pelvis.? Stomach and small bowel loops are unremarkable. Peritoneum:? Trace pelvic fluid posteriorly.? No free air. ? Ventral Wall:? No umbilical hernia. Abdominal Nodes:? There are numerous nonenlarged calcifications through the mesentery, presumably calcified lymph nodes.? No bulky mesenteric or retroperitoneal mass or soft tissue. Vessels:? Aorta and inferior vena cava are normal in size.? Moderate abdominal aortic atherosclerotic calcification.? ? PELVIS: Pelvic Organs:? Post hysterectomy. Pelvic Nodes: Unremarkable. Miscellaneous:? There is a small bowel containing Sheikh's hernia in the right inguinal region.? Small amount of fluid is seen dependently in the hernia sac. ? Bones:? Decreased mineralization.? Severe lower lumbar facet arthropathy.? Mild wedge deformity of and posterior osteophytosis at T12-L1. ? IMPRESSION:? ? 1. Findings suggesting acute long segment colitis involving descending colon and sigmoid colon.? This is most likely infectious or inflammatory given distribution. ? 2. Severe chronic right hydronephrosis with indwelling nephroureteral stent. ? 3. Chronic findings of calcified mesenteric lymph nodes.? Dictated by: Maira Wynn M.D. on 02/20/2022 at 15:40 ? ? Approved by: Maira Wynn M.D. on 02/20/2022 at 15:52 ? MDM Narrative Medical decision making narrative: Differential diagnosis to consider but not limited to viral upper respiratory infection versus viral gastroenteritis versus diverticulitis versus colitis versus bowel obstruction versus mesenteric ischemia. Discussed results of lab studies and imaging with patient and informed her that admission was appropriate. I discussed plan to begin patient on antibiotics here in the emergency department. Patient expresses understanding and agrees to plan. <Mitra Apodaca, DO - Last Filed: 02/21/22 07:26> Lab Data Labs: Lab Results 02/20/22 02/20/22 02/20/22 Range/Units 13:10 14:01 14:01 WBC 20.5 H (4.5-11.0) X10^3/uL RBC 4.69 (4.0-5.2) X10^6/uL Hgb 14.8 (12.0-16.0) g/dL Hct 44.0 (36-46) % MCV 93.8 (80-100) fL MCH 31.4 (26-34) PG MCHC 33.5 (30-36) % RDW 13.5 (11.6-14.8) % Plt Count 419 H (150-400) X10^3/uL Neut % (Auto) 82.5 H (50-75) % Lymph % (Auto) 6.5 L (25-40) % [place] % (Auto) 10.6 (3-14) % Eos % (Auto) 0.2 L (2-4) % Baso % (Auto) 0.2 (0-2) % Neut # (Auto) 73771 H (6734-3916) /uL Lymph # (Auto) 1300 (0353-4064) /uL [place] # (Auto) 2200 H (0-900) /uL Eos # (Auto) 0 (0-450) /uL Baso # (Auto) 0 (0-100) /uL Sodium 124 L (137-145) mmol/L Potassium 4.1 (3.4-5.1) mmol/L Chloride 89 L (98-107) mmol/L Carbon Dioxide 23 (22-32) mmol/L BUN 27 H (7-17) mg/dL Creatinine 1.67 H (0.52-1.04) mg/dL Estimated GFR 30 L (>60) mL/min BUN/Creatinine Ratio 16.2 (6-22) Glucose 125 H (80-110) mg/dL Lactate 2.1 (0.7-2.1) mmol/L Calcium 9.2 (8.4-10.2) mg/dL Total Bilirubin 0.7 (0.2-1.3) mg/dL AST 54 H (14-36) IU/L ALT 68 H (<35) IU/L Alkaline Phosphatase 81 (38-126) U/L Total Protein 7.5 (6.3-8.2) g/dL Albumin 4.0 (3.5-5.0) g/dL Globulin 3.5 (1.7-4.1) g/dL Albumin/Globulin Ratio 1.1 (1.0-2.8) Lipase 83 (23-300) U/L Ur Bilirubin Confirm (Negative) Urine RBC (0-5/HPF) Urine WBC (0-5/HPF) Ur Squamous Epith Cells (0-5/HPF) Ur Renal Epithelial Cell (0-1/HPF) Urine Bacteria (None) Ur Culture Indicated? 02/20/22 02/20/22 Range/Units 15:21 15:21 WBC (4.5-11.0) X10^3/uL RBC (4.0-5.2) X10^6/uL Hgb (12.0-16.0) g/dL Hct (36-46) % MCV (80-100) fL MCH (26-34) PG MCHC (30-36) % RDW (11.6-14.8) % Plt Count (150-400) X10^3/uL Neut % (Auto) (50-75) % Lymph % (Auto) (25-40) % [place] % (Auto) (3-14) % Eos % (Auto) (2-4) % Baso % (Auto) (0-2) % Neut # (Auto) (8546-6597) /uL Lymph # (Auto) (7479-0651) /uL [place] # (Auto) (0-900) /uL Eos # (Auto) (0-450) /uL Baso # (Auto) (0-100) /uL Sodium (137-145) mmol/L Potassium (3.4-5.1) mmol/L Chloride (98-107) mmol/L Carbon Dioxide (22-32) mmol/L BUN (7-17) mg/dL Creatinine (0.52-1.04) mg/dL Estimated GFR (>60) mL/min BUN/Creatinine Ratio (6-22) Glucose (80-110) mg/dL Lactate (0.7-2.1) mmol/L Calcium (8.4-10.2) mg/dL Total Bilirubin (0.2-1.3) mg/dL AST (14-36) IU/L ALT (<35) IU/L Alkaline Phosphatase (38-126) U/L Total Protein (6.3-8.2) g/dL Albumin (3.5-5.0) g/dL Globulin (1.7-4.1) g/dL Albumin/Globulin Ratio (1.0-2.8) Lipase (23-300) U/L Ur Bilirubin Confirm Negative (Negative) Urine RBC None seen (0-5/HPF) Urine WBC >100/hpf H (0-5/HPF) Ur Squamous Epith Cells 0-1 /hpf (0-5/HPF) Ur Renal Epithelial Cell 1-5/hpf H (0-1/HPF) Urine Bacteria Many (>30) H (None) Ur Culture Indicated? Culture not indicate Urine Dip Bedside Urine Glucose Negative Bedside Urine Bilirubin ++ 2 Bedside Urine Ketone +/- 5 Urine Specific [place] 1.030 Bedside Urine Occult Blood ++ Bedside Urine pH 6.0 Bedside Urine Protein ++ 100 Bedside Urine Urobilinogen +/- 1mg Bedside Urine Nitrite - Negative Bedside Urine Leukocytes ++ 125 Esterase Discharge Plan Departure Patient Disposition: Admitted As Inpatient Clinical Impression: Diverticulitis, Acute kidney injury Admit Date/Time: 02/20/22 16:13 Admit Provider: Pino Cho <Mitra Apodaca, - Last Filed: 02/21/22 07:26> Cosign ED Attending Elisa Attestation: I was immediately available in the department for consultation. Documentation has been reviewed. I agree with assessment and plan.
[2022-02-20] MEDS: SODIUM CHLORIDE 0.9% 1,000 ML 1000 ML IV (13:30)
[2022-02-20 14:37] LABS: Add Manual Diff / Slide Review NO; Basophils Absolute Auto 0 /uL (0-100); Basophils Percent Auto 0.2 % (0-2); Eosinophils Absolute Auto 0 /uL (0-450); Eosinophils Percent Auto 0.2 % (2-4); Hemoglobin 14.8 g/dL (12.0-16.0); Lymphocytes Absolute Auto 1300 /uL (1100-4500); Lymphocytes Percent Auto 6.5 % (25-40); Mean Corpuscular HGB Conc 33.5 % (30-36); Mean Corpuscular Hemoglobin 31.4 PG (26-34); Mean Corpuscular Volume 93.8 fL (80-100); Monocytes Absolute Auto 2200 /uL (0-900); Monocytes Percent Auto 10.6 % (3-14); Neutrophils Absolute Auto 16900 /uL (1500-7000); Neutrophils Percent Auto 82.5 % (50-75); Platelet Count 419 X10^3/uL (150-400); Red Blood Cell Count 4.69 X10^6/uL (4.0-5.2); Red Cell Distribution Width 13.5 % (11.6-14.8); White Blood Cell Count 20.5 X10^3/uL (4.5-11.0)
[2022-02-20 14:43] LABS: Alanine Aminotransferase 68 IU/L (<35); Albumin Globulin Ratio 1.1 (1.0-2.8); Alkaline Phosphatase 81 U/L (38-126); Aspartate Aminotransferase 54 IU/L (14-36); BUN Creatinine Ratio 16.2 (6-22); Bilirubin Total 0.7 mg/dL (0.2-1.3); Blood Urea Nitrogen 27 mg/dL (7-17); Calcium 9.2 mg/dL (8.4-10.2); Carbon Dioxide 23 mmol/L (22-32); Chloride 89 mmol/L (98-107); Estimated Glomerular Filt Rate 30 mL/min (>60); Globulin 3.5 g/dL (1.7-4.1); Glucose 125 mg/dL (80-110); HEMOLYSIS < 15 (0-50); Lipase 83 U/L (23-300); Potassium 4.1 mmol/L (3.4-5.1); Sodium 124 mmol/L (137-145); Total Protein 7.5 g/dL (6.3-8.2)
[2022-02-20 15:00] LABS: Lactate (Lactic Acid) 2.1 mmol/L (0.7-2.1)
--- NOTE | 2022-02-20 15:05 | DI.CT.S_ITS ---
PROCEDURE: CT ABDOMEN PELVIS WO CON INDICATIONS: Diffuse abdominal pain TECHNIQUE: Axial sections were acquired from the lung bases to the pubic symphysis. Coronal and sagittal reformats were performed. For radiation dose reduction, the following was used: automated exposure control, adjustment of mA and/or kV according to patient size. COMPARISON: [facility], CT, IVP (ABD & PEL WWO CONTRAST), 01/17/2016, 12:30. FINDINGS: Image quality: Excellent. Lung bases: Mild scarring at the right lung base. Heart: Aortic valvular and mitral annular calcification. Normal size heart. Small hiatal hernia. URINARY: Right Kidney: Right-sided nephroureteral stent. Severe upper pole hydronephrosis and cortical thinning. Punctate calcification in the right midpole. Right Ureter: Stent in place. No perinephric inflammation. Left Kidney: No hydronephrosis or stones. Mildly prominent extrarenal pelvis. Left Ureter: No hydroureter or stones. Bladder: Decompressed. No stones. The distal end of the nephroureteral stent is in adequate position. No suspicious wall thickening. ABDOMEN: Liver: Normal unenhanced appearance. Gallbladder: Surgically absent. Biliary ducts: Nondilated. Pancreas: Normal contour. No peripancreatic inflammation. Spleen: Unremarkable. Adrenal Glands: No nodules. Stomach and Bowel: Circumferential long segment colon wall thickening from the splenic flexure distally through the sigmoid colon. There is mild diffuse subserosal inflammation. Moderate diverticulosis is present in the distal sigmoid. No visible extraluminal gas. Mild pericolonic inflammatory changes and fluid dependently in the pelvis. Stomach and small bowel loops are unremarkable. Peritoneum: Trace pelvic fluid posteriorly. No free air. Ventral Wall: No umbilical hernia. Abdominal Nodes: There are numerous nonenlarged calcifications through the mesentery, presumably calcified lymph nodes. No bulky mesenteric or retroperitoneal mass or soft tissue. Vessels: Aorta and inferior vena cava are normal in size. Moderate abdominal aortic atherosclerotic calcification. PELVIS: Pelvic Organs: Post hysterectomy. Pelvic Nodes: Unremarkable. Miscellaneous: There is a small bowel containing Sheikh's hernia in the right inguinal region. Small amount of fluid is seen dependently in the hernia sac. Bones: Decreased mineralization. Severe lower lumbar facet arthropathy. Mild wedge deformity of and posterior osteophytosis at T12-L1. IMPRESSION: 1. Findings suggesting acute long segment colitis involving descending colon and sigmoid colon. This is most likely infectious or inflammatory given distribution. 2. Severe chronic right hydronephrosis with indwelling nephroureteral stent. 3. Chronic findings of calcified mesenteric lymph nodes. Dictated by: Maira Wynn M.D. on 02/20/2022 at 15:40 Approved by: Maira Wynn M.D. on 02/20/2022 at 15:52
[2022-02-20 15:40] LABS: Ictotest Urine Negative (Negative)
[2022-02-20 15:41] LABS: RBC Urine None Seen (0-5/HPF); WBC Urine >100/HPF (0-5/HPF)
[2022-02-20 15:42] LABS: Bacteria Urine Many (>30); Renal Epithelial Cells Urine 1-5/HPF (0-1/HPF); Squamous Epithelial Cell Urine 0-1 /HPF (0-5/HPF)
[2022-02-20] MEDS: SODIUM CHLORIDE 0.9% 607.81 ML IV (16:41)
[2022-02-20] MEDS: cefTRIAXone 2,000 MG in SODIUM CHLORIDE 0.9% 100 ML 200 MG IV (16:41)
[2022-02-20] MEDS: metroNIDAZOLE 500 MG/100 ML PIGGYBACK 100 MG IV ×2 (16:42→22:00)
[2022-02-20 16:53] LABS: Reflexed Lactate in 2 Hours Y
--- NOTE | 2022-02-20 18:32 | P.HP_ITS ---
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 She denies any overt fever but does endorse chills over the past couple of days. She denies any headache, vision changes, sore throat, cough, sputum production, chest pain, or rash. She was mildly tachycardic and borderline hypotensive, so she was transferred to the emergency room for further evaluation. In the emergency room, she was again tachycardic but her blood pressure was slightly improved. Her COVID and flu testing was negative. She was given a 1 L fluid bolus. Initial laboratory evaluation was notable for a leukocytosis with WBCs of 20.5, elevated platelet count [id number], sodium of 120 for creatinine of 1.67 (baseline appears to be around 0.5), and mild elevations in her transaminase levels. Urinalysis showed greater than 100 wbc's, and many bacteria. Blood cultures and urine cultures were sent. CT scan was performed which showed her chronic right UPJ obstruction, but also acute colitis of her descending and sigmoid colon. Patient was given ceftriaxone and Flagyl, additional fluid boluses for possible sepsis, and C diff testing was ordered. Patient History Medical History Anxiety (2014) Coppola's syndrome Cataract (2016) Colon polyps Congenital stricture of urethra Depression (2014) Giant cell arteritis Graves' disease Hayfever History of UTI Hypertension Hypothyroidism 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 Precancerous skin lesion (~2006) Shoulder pain (2015) Tinnitus (2009) Surgical History Anesthesia H/O hysterectomy for benign disease (1994) History of abdominoplasty (1981) History of bilateral tubal ligation (1969) History of cataract surgery (2014) History of section (1969) History of cholecystectomy History of partial hysterectomy (1989) History of tonsillectomy (1946) History of ureter repair (2013) Hx of cystoscopy (03/24/16) Hx of thyroid irradiation (1989) Status post tubal ligation Family & Social History Family History Brother Heart disease Brother Emphysema of lung Family/Other Influenza Father Heart attack Grandmother Esophageal cancer Mother Esophageal cancer Grandfather Heart attack Sister Pancreatic cancer Unknown Heart disease Smoker Grandfather No problems noted. Grandmother No problems noted. Social History: household members spouse Safety & Behavioral: Feels Safe in Current Yes Environment Been Physically Hurt or No Threatened By a Person Tobacco & Substance use: Smoking Status Never smoker alcohol intake current alcohol intake frequency 0-2 drinks per day Substance Use Type does not use Meds Home Medications and Allergies Home Medications Medication Instructions Recorded Confirmed Type aspirin 81 mg tablet,delayed 81 mg PO BEDTIME 03/01/18 02/20/22 History release (Adult Low Dose Aspirin) cholecalciferol (vitamin D3) 25 1,000 unit PO DAILY 03/01/18 02/20/22 History mcg (1,000 unit) capsule krill oil 500 mg capsule 500 mg PO DAILY 03/01/18 02/20/22 History [id number]-[id number]-mag--zinc 1 tab PO Q OTHER DAY 10/01/20 02/20/22 History omeprazole 40 mg capsule,delayed 40 mg PO DAILY #90 caps 06/17/21 02/20/22 Rx release metoprolol tartrate 25 mg tablet 12.5 mg PO BID #90 tabs 07/15/21 02/20/22 Rx levothyroxine 125 mcg tablet 125 mcg PO DAILY #90 tabs 11/18/21 02/20/22 Rx estradiol (Estrace) 1 g vaginal 2XW #42.5 grams 11/21/21 02/20/22 Rx bupropion HCl (smoking deter) 150 150 mg PO BID #60 tabs 12/03/21 02/20/22 Rx mg tablet,12 hr sustained-release(smoking deterrent) amlodipine 10 mg tablet 10 mg PO BEDTIME 02/20/22 02/20/22 History lisinopril 10 mg tablet 10 mg PO BEDTIME 02/20/22 02/20/22 History Allergies Allergy/AdvReac Type Severity Reaction Status Date / Time shellfish derived Allergy Severe MUSSELS - Verified 02/20/22 12:21 ANAPHYLAXIS amoxicillin Allergy Mild RASH, Verified 02/20/22 12:21 DIARRHEA nitrofurantoin AdvReac Severe diarrhea,vomiting, Verified 02/20/22 12:21 rectal bleeding Review of Systems Review of Systems Narrative: All other systems reviewed with the patient and are negative unless otherwise stated. Exam Vital Signs (past 8 hours): - 02/20/22 12:21 02/20/22 13:12 02/20/22 13:14 Temperature 98.2 F Pulse Rate 109 H 96 H Respiratory Rate 18 Blood Pressure 116/58 L 110/58 L Pulse Oximetry 98 96 Oxygen Delivery Method Room Air 02/20/22 13:14 02/20/22 13:30 02/20/22 13:30 Temperature Pulse Rate 98 H 96 H Respiratory Rate Blood Pressure 109/55 L Pulse Oximetry 96 94 Oxygen Delivery Method 02/20/22 14:00 02/20/22 14:00 02/20/22 14:30 Temperature Pulse Rate 96 H Respiratory Rate Blood Pressure 109/52 L 111/58 L Pulse Oximetry 96 Oxygen Delivery Method 02/20/22 14:30 02/20/22 15:00 02/20/22 15:00 Temperature Pulse Rate 89 90 Respiratory Rate Blood Pressure 129/59 L Pulse Oximetry 97 98 Oxygen Delivery Method 02/20/22 15:25 02/20/22 15:25 02/20/22 15:30 Temperature Pulse Rate 97 H Respiratory Rate Blood Pressure 135/61 126/61 Pulse Oximetry 98 Oxygen Delivery Method 02/20/22 15:30 02/20/22 16:00 02/20/22 16:00 Temperature Pulse Rate 98 H 98 H Respiratory Rate Blood Pressure 114/57 L Pulse Oximetry 96 95 Oxygen Delivery Method 02/20/22 16:30 02/20/22 16:30 02/20/22 17:00 Temperature Pulse Rate 101 H Respiratory Rate Blood Pressure 111/59 L 118/58 L Pulse Oximetry 94 Oxygen Delivery Method 02/20/22 17:00 02/20/22 17:30 02/20/22 17:30 Temperature Pulse Rate 101 H 98 H Respiratory Rate Blood Pressure 116/56 L Pulse Oximetry 93 95 Oxygen Delivery Method Oxygen Delivery Method Room Air Narrative Exam Narrative: General:? Patient is well developed and well nourished, in no distress at this time. HEENT:? Normocephalic, atraumatic, extraocular muscles intact, oral pharynx is clear and mucous membranes are moist. Neck: supple and symmetric, trachea is midline, no cervical adenopathy. Negative for JVD Chest:? Normal AP diameter and contour without kyphoscoliosis, no tachypnea, equal chest rise bilaterally. Lungs:? CTA b/l no wheezing rhonchi or rales. Cardio:?RRR no m/r/g. Abdomen: Soft, mild periumbilical tenderness, minimal distension. Musculoskeletal:? Muscle strength and tone are equal within normal limits, no deformity. Extremities: No edema or joint effusions. No cyanosis or clubbing. Skin:? Pale,? Warm to touch,dry and intact without rashes, ulcerations or petechiae.? Neuro:? Alert and orientated x3,? sensation to touch intact in all extremities, no gross deficits noted of cranial nerves. Psych:? Patient has a well-kept appearance, appropriate affect, mental status attitude thought context and judgment are appropriate for age. Objective Imaging CT scan - abdomen: Radiologist's impression: PROCEDURE:? CT ABDOMEN PELVIS WO CON ? INDICATIONS:? Diffuse abdominal pain ? TECHNIQUE:? Axial sections were acquired from the lung bases to the pubic symphysis.? Fishman l and sagittal reformats were performed.? For radiation dose reduction, the following was used: ?automated exposure control, adjustment of mA and/or kV according to patient size.? ? COMPARISON:? [facility], CT, IVP (ABD & PEL WWO CONTRAST), 01/17/2016, 12:30. ? FINDINGS:? Image quality:? Excellent.? ? Lung bases:? Mild scarring at the right lung base. Heart:? Aortic valvular and mitral annular calcification.? Normal size heart.? Small hiatal hernia. ? URINARY: Right Kidney:? Right-sided nephroureteral stent.? Severe upper pole hydronephrosis and cortical thinning.? Punctate calcification in the right midpole. Right Ureter:? Stent in place.? No perinephric inflammation. ? Left Kidney:? No hydronephrosis or stones.? Mildly prominent extrarenal pelvis.? Left Ureter:? No hydroureter or stones.? ? Bladder:? Decompressed.? No stones.? The distal end of the nephroureteral stent is in adequate position.? No suspicious wall thickening. ? ABDOMEN: Liver:? Normal unenhanced appearance. Gallbladder:? Surgically absent. Biliary ducts:? Nondilated. Pancreas:? Normal contour.? No peripancreatic inflammation. Spleen:? Unremarkable.? ? Adrenal Glands:? No nodules. ? Stomach and Bowel:? Circumferential long segment colon wall thickening from the splenic flexure distally through the sigmoid colon.? There is mild diffuse subserosal inflammation.? Moderate diverticulosis is present in the distal sigmoid.? No visible extraluminal gas.? Mild pericolonic inflammatory changes and fluid dependently in the pelvis.? Stomach and small bowel loops are unremarkable. Peritoneum:? Trace pelvic fluid posteriorly.? No free air. ? Ventral Wall:? No umbilical hernia. Abdominal Nodes:? There are numerous nonenlarged calcifications through the mesentery, presumably calcified lymph nodes.? No bulky mesenteric or retroperitoneal mass or soft tissue. Vessels:? Aorta and inferior vena cava are normal in size.? Moderate abdominal aortic atherosclerotic calcification.? ? PELVIS: Pelvic Organs:? Post hysterectomy. Pelvic Nodes: Unremarkable. Miscellaneous:? There is a small bowel containing Sheikh's hernia in the right inguinal region.? Small amount of fluid is seen dependently in the hernia sac. ? Bones:? Decreased mineralization.? Severe lower lumbar facet arthropathy.? Mild wedge deformity of and posterior osteophytosis at T12-L1. ? IMPRESSION:? ? 1. Findings suggesting acute long segment colitis involving descending colon and sigmoid colon.? This is most likely infectious or inflammatory given distribution. ? 2. Severe chronic right hydronephrosis with indwelling nephroureteral stent. ? 3. Chronic findings of calcified mesenteric lymph nodes.? Labs Result Diagrams: 02/20/22 14:01 02/20/22 14:01 Labs: Laboratory Results - last 24 hr 02/20/22 02/20/22 02/20/22 13:10 14:01 14:01 WBC 20.5 H RBC 4.69 Hgb 14.8 Hct 44.0 MCV 93.8 MCH 31.4 MCHC 33.5 RDW 13.5 Plt Count 419 H Neut % (Auto) 82.5 H Lymph % (Auto) 6.5 L [place] % (Auto) 10.6 Eos % (Auto) 0.2 L Baso % (Auto) 0.2 Neut # (Auto) 01574 H Lymph # (Auto) 1300 [place] # (Auto) 2200 H Eos # (Auto) 0 Baso # (Auto) 0 Sodium 124 L Potassium 4.1 Chloride 89 L Carbon Dioxide 23 BUN 27 H Creatinine 1.67 H Estimated GFR 30 L BUN/Creatinine Ratio 16.2 Glucose 125 H Lactate 2.1 Calcium 9.2 Total Bilirubin 0.7 AST 54 H ALT 68 H Alkaline Phosphatase 81 Total Protein 7.5 Albumin 4.0 Globulin 3.5 Albumin/Globulin Ratio 1.1 Lipase 83 Ur Bilirubin Confirm Urine RBC Urine WBC Ur Squamous Epith Cells Ur Renal Epithelial Cell Urine Bacteria Ur Culture Indicated? 02/20/22 02/20/22 15:21 15:21 WBC RBC Hgb Hct MCV MCH MCHC RDW Plt Count Neut % (Auto) Lymph % (Auto) [place] % (Auto) Eos % (Auto) Baso % (Auto) Neut # (Auto) Lymph # (Auto) [place] # (Auto) Eos # (Auto) Baso # (Auto) Sodium Potassium Chloride Carbon Dioxide BUN Creatinine Estimated GFR BUN/Creatinine Ratio Glucose Lactate Calcium Total Bilirubin AST ALT Alkaline Phosphatase Total Protein Albumin Globulin Albumin/Globulin Ratio Lipase Ur Bilirubin Confirm Negative Urine RBC None seen Urine WBC >100/hpf H Ur Squamous Epith Cells 0-1 /hpf Ur Renal Epithelial Cell 1-5/hpf H Urine Bacteria Many (>30) H Ur Culture Indicated? 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 She is admitted for colitis, possible UTI, CARLOTA, and hyponatremia. 1. Acute colitis, present on admission -patient presents with nausea, vomiting, and diarrhea for the past [address] scan does show circumferential wall thickening -patient was given sepsis bolus of IV fluids and antitbiotics in the emergency room. -continue ceftriaxone and flagyl for now for either infectious colitis / diverticulitis -last antibiotic use stopped a few months ago. -C. difficile ordered but diarrhea has improved for this time. -can start diet, consider colonoscopy as an outpatient with PMD, recent colonoscopy showed diverticular disease -SOFA score currently 1 2. CARLOTA - likely secondary to dehydration with n/v and diarrhea. - continue above therapies. 3. Possible acute on chronic cystitis in the setting of chronic right UPJ obstruction and stent placement - covered by ceftriaxone as noted above. 4. Acute on chronic hyponatremia - continue IV fluids, likely hypovolemia also in setting of chronic hyponatremia. 5. Essential hypertension - hold home antihypertensives in setting of infection. 6. Hypothyroidism, chronic - continue home medications 7. Depression, chronic - continue home buproprion. Code: Full, surrogate decision maker she states are her and son. Dispo: admit under inpatient status as her stay is expected to exceed two midnights. DVT: Lovenox daily. I have utilized all available immediate resources to obtain, update, or review the patient's current medications. COVID-19 COVID-19 status: Negative Result date/Date tested (Pos, Neg/Pending): 02/20/22 Time Spent With Patient Critical Care time: I spent a total of [] minutes of critical care time on this patient's care today; this time is exclusive of procedural time. Quality MIPS - Admit I confirm the patient?s Advance Care Plan is present, Code status is documented, Surrogate decision maker is in patient?s record [If Yes, STOP here]: Yes
--- NOTE | 2022-02-20 19:23 | PC.NURSE ---
Rec'd pt from ED via [facility] at 1805. Pt is AAO x4 and able to stand and walk from [place] to bathroom and bathroom back to bed. Gait is steady but slow. VSS. Oriented to room/routine/call light/fall risk. Admission assessment completed. Pt verbalizes understanding of safety measures.
[2022-02-20] MEDS: LACTATED RINGERS 1,000 ML 100 ML IV (20:51)
[2022-02-21] VITALS (10 sets, daily range): BP systolic 131–179; BP diastolic 63–85; PULSE 85–98; RESP 15–18; TEMP 36.1–36.8; O2SAT 94–96
[2022-02-21 03:39] LABS: Add Manual Diff / Slide Review NO; Basophils Absolute Auto 100 /uL (0-100); Basophils Percent Auto 0.5 % (0-2); Eosinophils Absolute Auto 100 /uL (0-450); Eosinophils Percent Auto 1.1 % (2-4); Hematocrit 36.4 % (36-46); Hemoglobin 12.4 g/dL (12.0-16.0); Lymphocytes Absolute Auto 1000 /uL (1100-4500); Lymphocytes Percent Auto 9.2 % (25-40); Mean Corpuscular Hemoglobin 31.9 PG (26-34); Mean Corpuscular Volume 93.9 fL (80-100); Monocytes Absolute Auto 1100 /uL (0-900); Monocytes Percent Auto 10.5 % (3-14); Neutrophils Absolute Auto 8600 /uL (1500-7000); Neutrophils Percent Auto 78.7 % (50-75); Platelet Count 279 X10^3/uL (150-400); Red Blood Cell Count 3.88 X10^6/uL (4.0-5.2); Red Cell Distribution Width 13.7 % (11.6-14.8); White Blood Cell Count 10.9 X10^3/uL (4.5-11.0)
[2022-02-21 03:53] LABS: BUN Creatinine Ratio 21.1 (6-22); Blood Urea Nitrogen 12 mg/dL (7-17); Calcium 7.9 mg/dL (8.4-10.2); Carbon Dioxide 22 mmol/L (22-32); Chloride 104 mmol/L (98-107); Estimated Glomerular Filt Rate > 60 mL/min (>60); Glucose 92 mg/dL (80-110); HEMOLYSIS < 15 (0-50); Magnesium 2.2 mg/dL (1.6-2.3); Potassium 3.3 mmol/L (3.4-5.1); Sodium 130 mmol/L (137-145)
[2022-02-21 04:00] LABS: Erythrocyte Sedimentation Rate 24 MM/HR (0-20)
[2022-02-21 04:07] LABS: Procalcitonin 5.48 ng/mL (<0.5)
[2022-02-21 04:23] LABS: C-Reactive Protein Quant 18.2 mg/dL (<1.0)
--- NOTE | 2022-02-21 05:59 | PC.NURSE ---
0600- Patient has rested most of the night. No stool sent as patient has not produced any. Voiding without difficulty. VSS.
[2022-02-21] MEDS: PANTOPRAZOLE DR 40 MG TABLET PO (06:32)
[2022-02-21] MEDS: LEVOTHYROXINE 125 MCG TABLET PO (06:32)
[2022-02-21] MEDS: metroNIDAZOLE 500 MG/100 ML PIGGYBACK 100 MG IV ×3 (06:32→21:52)
[2022-02-21] MEDS: LACTATED RINGERS 1,000 ML 100 ML IV (08:16)
[2022-02-21] MEDS: ENOXAPARIN 40 MG/0.4 ML SYRINGE SUBCUT (08:17)
[2022-02-21] MEDS: buPROPion SR 150 MG TAB PO ×2 (08:17→21:52)
[2022-02-21] MEDS: POTASSIUM CHLORIDE 20 MEQ TAB 40 MEQ PO (08:23)
[2022-02-21 14:33] LABS: Clostridium Difficile Tox PCR Negative for C. diff (Negative)
--- NOTE | 2022-02-21 15:17 | CM.DANOTE ---
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 Patient is very pleasant and appreciative of this visit Patient lives with spouse, who has been dx with Alz Dementia, patient says early stage. Patient endorses confidence in her ability to care for spouse multiple times and denies need for HH or lawn care worker resources from this INTERIOR DESIGN ASSISTANT. Patient/spouse have three adult sons that live within miles of each other in [facility] Plan: Anticipate DC home via friend pov, outpatient f/u; likely no needs from this CM team but will remain available in case this changes EVIN Roberts Discharge Planning/Care Management CM Discharge Assessment Start: 02/21/22 15:13 Freq: Status: Active Protocol: Document 02/21/22 15:13 SILVANA (Rec: 02/21/22 15:16 SILVANA [id number]) Discharge Planning Assessment Assigned Youth Services Specialist EVIN Medley DPOA/Assigned Designee Name Kennedy Tony, tamra ([place]) Contact Information [phone] Advance Directives? Yes Advance Directives on File No History Provided By Patient,Medical Record Prior Living Arrangements House Household Members spouse Type of transportation used prior to Drives own vehicle admit Independent with ADL's Yes Is patient alert and oriented? Yes Comment Cares for spouse, early stage Alz Dementia Barriers to Discharge No Comment Patient anticipates returning home, no need for HH or resources at this time Discharge Plan Home Transportation Arrangement Friend Referrals Initiated None needed Additional Comment Patient denies need for HH at this time
[2022-02-21] MEDS: cefTRIAXone 1,000 MG in SODIUM CHLORIDE 0.9% 100 ML 200 MG IV (15:35)
--- NOTE | 2022-02-21 15:50 | P.PN_ITS ---
Subjective Subjective Date Patient Seen: 02/21/22 Interval history: 82 y/o female admitted with nausea, vomiting, diarrhea and found to have diverticulitis. She feels significantly improved today. She is tolerating a diet without difficulty. She has excellent urine output. Exam Vital Signs (past 8 hours): - 02/21/22 08:42 02/21/22 08:00 02/21/22 08:00 Temperature 97.6 F Pulse Rate Respiratory Rate Blood Pressure Pulse Oximetry 95 Oxygen Delivery Method Room Air Room Air Oxygen Flow Rate 0 02/21/22 13:05 02/21/22 13:40 Temperature 98.3 F Pulse Rate 98 H Respiratory Rate 18 Blood Pressure 179/85 H 138/66 Pulse Oximetry 96 Oxygen Delivery Method Oxygen Flow Rate 0 Oxygen Delivery Method Room Air Oxygen Flow Rate 0 Narrative Exam Narrative: pleasant female lying in bed in no acute distress Resp Other: Lungs: clear to auscultation Cardio Other: CV: RRR nl Sl s2 GI Other: Abd: soft/ nontender/ non distended Extrem Other: no edema Objective Labs Result Diagrams: 02/21/22 03:06 02/21/22 03:06 Labs: Laboratory Results - last 24 hr 02/20/22 02/20/22 02/20/22 13:03 15:21 18:15 WBC RBC Hgb Hct MCV MCH MCHC RDW Plt Count Neut % (Auto) Lymph % (Auto) [place] % (Auto) Eos % (Auto) Baso % (Auto) Neut # (Auto) Lymph # (Auto) [place] # (Auto) Eos # (Auto) Baso # (Auto) ESR Sodium Potassium Chloride Carbon Dioxide BUN Creatinine Estimated GFR BUN/Creatinine Ratio Glucose Lactate 1.0 Calcium Magnesium C-Reactive Protein Procalcitonin Urine RBC None seen Urine WBC >100/hpf H Ur Squamous Epith Cells 0-1 /hpf Ur Renal Epithelial Cell 1-5/hpf H Urine Bacteria Many (>30) H Nasal Screen MRSA (PCR) C. difficile Tox (PCR) Negative for c. diff 02/20/22 02/21/22 02/21/22 18:30 03:06 03:06 WBC 10.9 RBC 3.88 L Hgb 12.4 Hct 36.4 MCV 93.9 MCH 31.9 MCHC 34.0 RDW 13.7 Plt Count 279 Neut % (Auto) 78.7 H Lymph % (Auto) 9.2 L Sutton % (Auto) 10.5 Eos % (Auto) 1.1 L Baso % (Auto) 0.5 Neut # (Auto) 8600 H Lymph # (Auto) 1000 L Sutton # (Auto) 1100 H Eos # (Auto) 100 Baso # (Auto) 100 ESR Sodium 130 L Potassium 3.3 L Chloride 104 Carbon Dioxide 22 BUN 12 Creatinine 0.57 Estimated GFR > 60 BUN/Creatinine Ratio 21.1 Glucose 92 Lactate Calcium 7.9 L Magnesium 2.2 C-Reactive Protein Procalcitonin 5.48 H Urine RBC Urine WBC Ur Squamous Epith Cells Ur Renal Epithelial Cell Urine Bacteria Nasal Screen MRSA (PCR) Negative for mrsa C. difficile Tox (PCR) 02/21/22 02/21/22 03:06 03:06 WBC RBC Hgb Hct MCV MCH MCHC RDW Plt Count Neut % (Auto) Lymph % (Auto) Sutton % (Auto) Eos % (Auto) Baso % (Auto) Neut # (Auto) Lymph # (Auto) [place] # (Auto) Eos # (Auto) Baso # (Auto) ESR 24 H Sodium Potassium Chloride Carbon Dioxide BUN Creatinine Estimated GFR BUN/Creatinine Ratio Glucose Lactate Calcium Magnesium C-Reactive Protein 18.2 H Procalcitonin Urine RBC Urine WBC Ur Squamous Epith Cells Ur Renal Epithelial Cell Urine Bacteria Nasal Screen MRSA (PCR) C. difficile Tox (PCR) [facility] Medical History Anxiety (2014) Coppola's syndrome Cataract (2016) Colon polyps Congenital stricture of urethra Depression (2013) Giant cell arteritis Graves' disease Hayfever History of UTI Hypertension Hypothyroidism 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 Precancerous skin lesion (~2006) Shoulder pain (2015) Tinnitus (2009) Surgical History Anesthesia H/O hysterectomy for benign disease (1994) History of abdominoplasty (1981) History of bilateral tubal ligation (1969) History of cataract surgery (2014) History of section (1969) History of cholecystectomy History of partial hysterectomy (1989) History of tonsillectomy (194) History of ureter repair (2013) Hx of cystoscopy (03/24/16) Hx of thyroid irradiation (1989) Status post tubal ligation Family History Brother Heart disease Brother Emphysema of lung Family/Other Influenza Father Heart attack Grandmother Esophageal cancer Mother Esophageal cancer Grandfather Heart attack Sister Pancreatic cancer Unknown Heart disease Smoker Grandfather No problems noted. Grandmother No problems noted. 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 She is admitted for colitis, possible UTI, CARLOTA, and hyponatremia. 1. Acute colitis, present on admission -patient presents with nausea, vomiting, and diarrhea for the past 4 days[address] scan does show circumferential wall thickening -patient was given sepsis bolus of IV fluids and antitbiotics in the emergency room. -continue ceftriaxone and flagyl for now for either infectious colitis / diverticulitis -last antibiotic use stopped a few months ago. -C. difficile ordered but diarrhea has improved for this time. -can start diet, consider colonoscopy as an outpatient with PMD, recent colonoscopy showed diverticular disease ?-SOFA score currently 1 -making improvement, will advance diet and discontinue IVF -CDiff negative 2. CARLOTA ?- likely secondary to dehydration with n/v and diarrhea. ?- continue above therapies. -d/c IVF 3. Possible acute on chronic cystitis in the setting of chronic right UPJ obstruction and stent placement ?- covered by ceftriaxone as noted above. 4. Acute on chronic hyponatremia ?- 5. Essential hypertension ?- hold home antihypertensives in setting of infection. 6. Hypothyroidism, chronic ?- continue home medications 7. Depression, chronic ?- continue home buproprion. Time Spent With Patient Critical Care time: I spent a total of [] minutes of critical care time on this patient's care today; this time is exclusive of procedural time.
[2022-02-21] MEDS: DICLOFENAC 1% GEL 100 GM 1 APPLIC TOP (16:39)
--- NOTE | 2022-02-21 17:37 | DIET.CONS ---
Dietary Consultation Note Admission Date: 02/20/2022 16:13 Assessment: 82 y/o F with PMH of HTN, hypothyroidism, depression, Coppola's esophagus, Grave's disease admitted after 3 days of n/v/d. States she has not been able to eat a full meal for 4 days. Endorses poor PO for months now. Diet recall indicates <75% of REE over the last few months with only 1-2 eating occurrences most days. Endorses 4# or 1.8kg loss over the last week, 2.8% (severe) EMR indicates -5.8 kg loss over three months, 8.6% (severe) Nutrition focused physical exam: severe temporal scooping, moderate muscle wasting in shoulders Does not enjoy protein foods. Diet recall: B: 1 toast D: <4oz pro, half potato, vegetables Beverages: water, tea with low fat milk, wine x 2 Ht: 152.4 cm Wt: 61.5 kg BMI: 26.4 Last BM: 02/21/22 (02/21/22 13:05) MNA: 8 Nuno Score: 20 Diet: 02/20/22 Dinner General (Regular) Diet Diet Modifications: Nutrition Percent Meal Consumed 50% 02/21/22 13:05 Percent Meal Consumed 10% 02/21/22 09:00 Labs: RBC 3.88 X10^6/uL (4.0-5.2) L 02/21/22 03:06 Hgb 12.4 g/dL (12.0-16.0) 02/21/22 03:06 Hct 36.4 % (36-46) 02/21/22 03:06 Creatinine 0.57 mg/dL (0.52-1.04) 02/21/22 03:06 Lactate 1.0 mmol/L (0.7-2.1) 02/20/22 18:15 Nutrition Diagnosis: Severe acute on chronic PCM r/t decreased appetite and low PO and n/v/d this week aeb diet recall indicating <75% REE, >7.5% wt loss in three months and >2% wt loss in one week, physical signs of wasting Interventions: 1. Open to trial ONS chocolate. Will send 1 per day, can increase to 2 if open to this. 2. Discussed importance of protein and options she is willing to incorporate, ie eggs EER: [id number] (25-28 kcal/kg per BMI) ; 92g PRO (1.5g/kg per malnutrition) Monitoring/Evaluations: ONS tolerance, PO, wt Electronically Signed by: Anum Royal 02/21/22 17:37 Clinical Dietitian [address] [address]
[2022-02-21] MEDS: ASPIRIN EC 81 MG TABLET PO (21:52)
[2022-02-21] MEDS: OXYCODONE IR 5 MG TABLET PO (23:43)
[2022-02-22 04:45] VITALS: BP 138/72; PULSE 92; RESP 16; TEMP 36.2; O2SAT 94
[2022-02-22] MEDS: LEVOTHYROXINE 125 MCG TABLET PO (05:51)
[2022-02-22] MEDS: metroNIDAZOLE 500 MG/100 ML PIGGYBACK 100 MG IV (05:51)
[2022-02-22 06:11] LABS: Add Manual Diff / Slide Review NO; Basophils Absolute Auto 0 /uL (0-100); Basophils Percent Auto 0.3 % (0-2); Eosinophils Absolute Auto 300 /uL (0-450); Eosinophils Percent Auto 4.5 % (2-4); Hemoglobin 12.9 g/dL (12.0-16.0); Lymphocytes Absolute Auto 700 /uL (1100-4500); Lymphocytes Percent Auto 12.1 % (25-40); Mean Corpuscular HGB Conc 33.9 % (30-36); Mean Corpuscular Hemoglobin 31.5 PG (26-34); Mean Corpuscular Volume 92.8 fL (80-100); Monocytes Absolute Auto 800 /uL (0-900); Neutrophils Absolute Auto 4100 /uL (1500-7000); Neutrophils Percent Auto 69.1 % (50-75); Platelet Count 299 X10^3/uL (150-400); Red Cell Distribution Width 13.4 % (11.6-14.8); White Blood Cell Count 5.9 X10^3/uL (4.5-11.0)
[2022-02-22 06:28] LABS: Calcium 8.3 mg/dL (8.4-10.2); Carbon Dioxide 26 mmol/L (22-32); Chloride 97 mmol/L (98-107); Estimated Glomerular Filt Rate > 60 mL/min (>60); Glucose 101 mg/dL (80-110); HEMOLYSIS < 15 (0-50); Magnesium 1.7 mg/dL (1.6-2.3); Potassium 3.4 mmol/L (3.4-5.1); Sodium 128 mmol/L (137-145)
[2022-02-22 06:29] LABS: BUN Creatinine Ratio 4.9 (6-22); Blood Urea Nitrogen < 2 mg/dL (7-17)
--- NOTE | 2022-02-22 08:08 | PM.DS.1 ---
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 She denies any overt fever but does endorse chills over the past couple of days.? She denies any headache, vision changes, sore throat, cough, sputum production, chest pain, or rash. ?She was mildly tachycardic and borderline hypotensive, so she was transferred to the emergency room for further evaluation.? In the emergency room, she was again tachycardic but her blood pressure was slightly improved.? Her COVID and flu testing was negative.? She was given a 1 L fluid bolus.? Initial laboratory evaluation was notable for a leukocytosis with WBCs of 20.5, elevated platelet count [id number], sodium of 120 for creatinine of 1.67 (baseline appears to be around 0.5), and mild elevations in her transaminase levels.? Urinalysis showed greater than 100 wbc's, and many bacteria.? Blood cultures and urine cultures were sent.? CT scan was performed which showed her chronic right UPJ obstruction, but also acute colitis of her descending and sigmoid colon.? Patient was given ceftriaxone and Flagyl, additional fluid boluses for possible sepsis, and C diff testing was ordered. Discharge Providers Provider Date of admission: 02/20/22 16:13 Discharge Date: 02/22/22 Primary care physician: Haley Dewey DO Consults: 02/20/22 18:45 Consult to Dietitian, Adult Routine Comment: Reason For Exam: recent weight loss, poor PO intake Discharge provider: Caro Tejeda MD Summary Hospital Course Discharge Diagnosis: 1. Severe Sepsis, manifested by Acute Kidney injury 2. Acute colitis of descending and sigmoid colon 3. Urinary Tract Infection, secodary to serratia marcens 4. hypertension 5. depression 6. hypothyroidism 7. Coppola's esophagitis 8. history of Graves disease 9. chronic right UPJ obstruction 10. hyponatremia, present on admission now improved 11. Acute Kidney Injury, present on admission, now resolved Hospital Course: Patient admitted for acute colitis. She was NPO then slowly advanced her diet. She had improvement of her pain, nausea, diarrhea. Her CDIFF was negative. Patient had improved white count, decreased abdominal bloating and overall felt significantly improved. She was initially placed on ceftriaxone and flagyl. Given the sensitivities of the serratia and her acute colitis she will be discharged home on 7 days of levofloxacin and flagyl. Patient will follow up with her PCP within 1-2 weeks. She was deemed appropriate for discharge home. Status at Discharge Cognitive/behavioral status at discharge: oriented Functional status at discharge: independent ambulation Overall status at discharge: patient is progressing back to baseline Exam Vital Signs (past 8 hours): - 02/22/22 04:45 Temperature 97.1 F L Pulse Rate 92 H Respiratory Rate 16 Blood Pressure 138/72 Pulse Oximetry 94 Oxygen Flow Rate 0 Oxygen Delivery Method Room Air Oxygen Flow Rate 0 Narrative Exam Narrative: pleasant female lying in bed in no acute distress Resp Other: Lungs: clear to auscultation Cardio Other: CV: RRR nl Sl S2 GI Other: Abd: soft/ non tender/ non distended Extrem Other: no edema Objective Labs Result Diagrams: 02/22/22 05:57 02/22/22 05:57 Labs: Laboratory Results - last 24 hr 02/20/22 02/22/22 02/22/22 13:03 05:57 05:57 WBC 5.9 RBC 4.10 Hgb 12.9 Hct 38.0 MCV 92.8 MCH 31.5 MCHC 33.9 RDW 13.4 Plt Count 299 Neut % (Auto) 69.1 Lymph % (Auto) 12.1 L [place] % (Auto) 14.0 Eos % (Auto) 4.5 H Baso % (Auto) 0.3 Neut # (Auto) 4100 Lymph # (Auto) 700 L [place] # (Auto) 800 Eos # (Auto) 300 Baso # (Auto) 0 Sodium 128 L Potassium 3.4 Chloride 97 L Carbon Dioxide 26 BUN < 2 L Creatinine 0.41 L Estimated GFR > 60 BUN/Creatinine Ratio 4.9 L Glucose 101 Calcium 8.3 L Magnesium 1.7 C. difficile Tox (PCR) Negative for c. diff [facility] Medical History Anxiety (2014) Coppola's syndrome Cataract (2016) Colon polyps Congenital stricture of urethra Depression (2014) Giant cell arteritis Graves' disease Hayfever History of UTI Hypertension Hypothyroidism 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 Precancerous skin lesion (~2007) Shoulder pain (2015) Tinnitus (2010) Surgical History Anesthesia H/O hysterectomy for benign disease (1994) History of abdominoplasty (1981) History of bilateral tubal ligation (1969) History of cataract surgery (2014) History of section (1969) History of cholecystectomy History of partial hysterectomy (1989) History of tonsillectomy (1945) History of ureter repair (2013) Hx of cystoscopy (03/24/16) Hx of thyroid irradiation (1989) Status post tubal ligation Family History Brother Heart disease Brother Emphysema of lung Family/Other Influenza Father Heart attack Grandmother Esophageal cancer Mother Esophageal cancer Grandfather Heart attack Sister Pancreatic cancer Unknown Heart disease Smoker Grandfather No problems noted. Grandmother No problems noted. 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 She denies any overt fever but does endorse chills over the past couple of days.? She denies any headache, vision changes, sore throat, cough, sputum production, chest pain, or rash. ?She was mildly tachycardic and borderline hypotensive, so she was transferred to the emergency room for further evaluation.? In the emergency room, she was again tachycardic but her blood pressure was slightly improved.? Her COVID and flu testing was negative.? She was given a 1 L fluid bolus.? Initial laboratory evaluation was notable for a leukocytosis with WBCs of 20.5, elevated platelet count [id number], sodium of 120 for creatinine of 1.67 (baseline appears to be around 0.5), and mild elevations in her transaminase levels.? Urinalysis showed greater than 100 wbc's, and many bacteria.? Blood cultures and urine cultures were sent.? CT scan was performed which showed her chronic right UPJ obstruction, but also acute colitis of her descending and sigmoid colon.? Patient was given ceftriaxone and Flagyl, additional fluid boluses for possible sepsis, and C diff testing was ordered. Plan of Treatment: 1. Continue 7 days of antibiotics 2. F/u with PCP next week Discharge Plan Discharge Plan Patient Disposition: Home Discharge orders & Medications Prescriptions: New oxycodone 5 mg Tablet 5 mg PO Q4HR PRN (Reason: Pain, Moderate (4-6)) Qty: 10 0RF levofloxacin 500 mg tablet 500 mg PO DAILY Qty: 7 0RF metronidazole 500 mg tablet 500 mg PO Q8H Qty: 21 0RF Continued bupropion HCl (smoking deter) 150 mg tablet extended release 12 hr 150 mg PO BID Qty: 60 2RF omeprazole 40 mg capsule,delayed release(DR/EC) 40 mg PO DAILY Qty: 90 3RF metoprolol tartrate 25 mg tablet 12.5 mg PO BID Qty: 90 3RF levothyroxine 125 mcg tablet 125 mcg PO DAILY Qty: 90 1RF krill oil 500 mg capsule 500 mg PO DAILY cholecalciferol (vitamin D3) 1,000 unit capsule 1,000 unit PO DAILY aspirin [Adult Low Dose Aspirin] 81 mg tablet,delayed release (DR/EC) 81 mg PO BEDTIME [id number]--[id number] 1 tab PO Q OTHER DAY amlodipine 10 mg tablet 10 mg PO BEDTIME lisinopril 10 mg tablet 10 mg PO BEDTIME estradiol [Estrace] 0.01 % (0.1 mg/gram) cream 1 g vaginal 2XW Qty: 42.5 5RF Rx Instructions: Insert 1 g of product intravaginally at bedtime times 12 days, then at bedtime twice weekly thereafter as directed. Follow up/Referrals: Haley Dewey DO [Primary Care Provider] - Discharge Health Status Multidrug resistant organism: No MDRO Diet/Activity/Treatments Diet: Diet as Tolerated, Low-sodium and Low-cholesterol Skin/Wound/Dressing Care Report to your healthcare provider any signs of infection, such as:: chills, fever and increased pain Discharge Data Primary Care Provider: Haley Dewey
[2022-02-22] MEDS: buPROPion SR 150 MG TAB PO (08:24)
[2022-02-22] MEDS: MAGNESIUM CHLORIDE 64 MG TABLET 128 MG PO (08:24)
[2022-02-22] MEDS: POTASSIUM CHLORIDE 20 MEQ TAB 40 MEQ PO (08:24)
[2022-02-22] MEDS: PANTOPRAZOLE DR 40 MG TABLET PO (08:24)
--- NOTE | 2022-02-22 10:43 | PC.NURSE ---
Pt declines the oxycodone Rx so was shredded. dc instructions given to pt; educated on getting up slowly from laying or sitting. pt states she takes a stool softner daily.
--- NOTE | 2022-02-22 15:09 | CM.DPNOTE ---
DC Note Patient eager to return home; Discharged home on po abx course w/close outpatient f/u recommended. No needs from this [employer] WORK[employer] identified IMM provided JW
== END 2022-02-22 10:46 | disposition home or self-care (01) | DRG 872 ==
LOC: ED 13:22 → AC 16:14 → ICU 16:36
PROVIDERS: Admitting Provider Internal Medicine; Emergency Provider Physician Assistant; Family Provider Family Medicine; PCP Family Medicine; Referring Provider Physician Assistant; Visit Provider Internal Medicine
DX: A41.9 Sepsis, unspecified organism (principal); N17.9 Acute kidney failure, unspecified; N39.0 Urinary tract infection, site not specified; E87.1 Hypo-osmolality and hyponatremia; K52.9 Noninfective gastroenteritis and colitis, unspecified; R65.20 Severe sepsis without septic shock; E86.0 Dehydration; N13.5 Crossing vessel and stricture of ureter without hydronephrosis; R00.0 Tachycardia, unspecified; I95.9 Hypotension, unspecified; E03.9 Hypothyroidism, unspecified; F32.A Depression, unspecified; K22.70 Barrett's esophagus without dysplasia; I10 Essential (primary) hypertension; E05.00 Thyrotoxicosis with diffuse goiter without thyrotoxic crisis or storm; B96.89 Other specified bacterial agents as the cause of diseases classified elsewhere; Z20.822 Contact with and (suspected) exposure to COVID-19
CPT/HCPCS: 36415; 74176; 80048; 80053; 81003; 81015; 83605; 83690; 83735; 84145; 85025; 85651; 86140; 87040; 87077; 87086; 87186; 87493; 87797; 96361; 96365; 96368; 99284; J0696; J1650

== ENCOUNTER → 2022-03-07 10:46 | Outpatient (CLI) | payer BC, SELFPAY ==
[2022-02-20 18:38] VITALS: BMI 26.4
--- NOTE | 2022-03-07 10:51 | DI.CT.S_ITS ---
PROCEDURE: CT KIDNEY URETER BLADDER (KUB) INDICATIONS: Other obstructive defects of renal pelvis and ureter. TECHNIQUE: Axial sections were acquired from the lung bases to the pubic symphysis. Coronal and sagittal reformats were performed. For radiation dose reduction, the following was used: automated exposure control, adjustment of mA and/or kV according to patient size. COMPARISON: [facility], CT, CT ABDOMEN PELVIS WO CON, 02/20/2022, 15:15. FINDINGS: Image quality: Excellent. Lung bases: No pleural effusion. URINARY: Right Kidney: Severe hydronephrosis and cortical thinning present as before. Punctate non-obstructing stone at the mid kidney not significantly changed. Right Ureter: A ureteral stent is present as before. Proximal end is at the renal pelvis and distal end is at the urinary bladder as before. Left Kidney: No stones or hydronephrosis. Left Ureter: No hydroureter. Bladder: No stones. ABDOMEN: Liver: Unremarkable. Gallbladder: Surgically absent. Biliary ducts: Unremarkable. Pancreas: Unremarkable. Spleen: Unremarkable. Adrenal Glands: Unremarkable. Stomach and Bowel: Small hiatal hernia. No evidence of mechanical small bowel obstruction. Severe predominantly sigmoid colonic diverticulosis without evidence of acute diverticulitis. Wall thickening of descending and sigmoid colon present on the previous exam appears resolved. Peritoneum: No abnormal intraperitoneal fluid. No free air. Abdominal Nodes: Calcified mesenteric lymph nodes present as before. Vessels: Aorta and inferior vena cava are normal in size. PELVIS: Pelvic Organs: The uterus is not visualized and is presumed surgically absent. Pelvic Nodes: Unremarkable. Miscellaneous: Right inguinal hernia present containing fat and nondilated small bowel. Pelvic floor descent is likely present. Bones: Multilevel degenerative change of the visualized spine. IMPRESSION: 1. Right ureteral stent appears in similar position. Severe right hydronephrosis is not significantly changed. 2. Interval resolution of descending and sigmoid colonic wall thickening. 3. Right inguinal hernia containing fat and nondilated small bowel. No evidence of mechanical small bowel obstruction at this time. Dictated by: Cirilo Louis M.D. on 03/07/2022 at 12:19 Approved by: Cirilo Louis M.D. on 03/07/2022 at 12:42
[2022-03-07 12:53] LABS: BUN Creatinine Ratio 14.6 (6-22); Blood Urea Nitrogen 7 mg/dL (7-17); Calcium 8.9 mg/dL (8.4-10.2); Carbon Dioxide 29 mmol/L (22-32); Chloride 94 mmol/L (98-107); Estimated Glomerular Filt Rate > 60 mL/min (>60); Glucose 140 mg/dL (80-110); HEMOLYSIS < 15 (0-50); Potassium 4.5 mmol/L (3.4-5.1); Sodium 130 mmol/L (137-145)
== END ==
PROVIDERS: Family Provider Family Medicine; PCP Family Medicine; Referring Provider Urology; Visit Provider Urology
DX: Q62.39 Other obstructive defects of renal pelvis and ureter (principal); N13.30 Unspecified hydronephrosis; N20.0 Calculus of kidney; K44.9 Diaphragmatic hernia without obstruction or gangrene; K57.30 Diverticulosis of large intestine without perforation or abscess without bleeding; K40.90 Unilateral inguinal hernia, without obstruction or gangrene, not specified as recurrent; Z96.0 Presence of urogenital implants
CPT/HCPCS: 36415; 74176; 80048

== ENCOUNTER → 2022-05-06 10:55 | Outpatient (CLI) | payer BC, SELFPAY ==
[2022-02-20 18:38] VITALS: BMI 26.4
--- NOTE | 2022-05-06 11:00 | DI.RAD.S_ITS ---
PROCEDURE: XR KUB INDICATIONS: stent location TECHNIQUE: One view of the abdomen acquired. COMPARISON: [facility], CT, CT KIDNEY URETER BLADDER (KUB), 03/07/2022, 10:56. [facility], CR, XR ABDOMEN 1V, 10/11/2021, 9:26. FINDINGS: Surgical changes and devices: A right ureteral stent is present, the inferior aspect of which extends below the pubic symphysis. Bowel: Bowel gas pattern is normal. Soft tissues: No suspicious abdominal calcifications. Visualized solid organ contours appear normal in size. Bones: No suspicious bony lesions. IMPRESSION: 1. Right ureteral stent. 2. Probable bladder base cystocele. Dictated by: Jose Theodore M.D. on 05/06/2022 at 11:50 Transcribed by: GISEL on 05/06/2022 at 11:51 Approved by: Jose Theodore M.D. on 05/06/2022 at 16:22
== END ==
PROVIDERS: Family Provider Family Medicine; PCP Family Medicine; Referring Provider Specialist; Visit Provider Specialist
DX: N13.5 Crossing vessel and stricture of ureter without hydronephrosis (principal); Z96.0 Presence of urogenital implants
CPT/HCPCS: 74018

== ENCOUNTER → 2022-05-20 12:40 | Outpatient (CLI) | payer BC, SELFPAY ==
[2022-02-20 18:38] VITALS: BMI 26.4
[2022-05-20 14:29] LABS: Appearance Urine UA SL CLOUDY; Bilirubin Urine UA NEGATIVE (NEGATIVE); Color Urine UA YELLOW; Glucose Urine UA NEGATIVE (Negative); Ketones Urine UA NEGATIVE (NEGATIVE); Leukocyte Esterase Urine UA 3+ (NEGATIVE); Nitrite Urine UA NEGATIVE (Negative); Occult Blood Urine UA 1+ (Negative); Protein Urine UA TRACE (Negative); Urobilinogen Urine UA 0.2 E.U./dL (0.2)
[2022-05-20 14:32] LABS: pH Urine UA 7.5 (4.5-8.0)
[2022-05-20 14:45] LABS: Bacteria Urine None Seen; Culture Indicated Urine Specimen Cultured; RBC Urine None Seen (0-5/HPF); Squamous Epithelial Cell Urine 0-1 /HPF (0-5/HPF); WBC Urine 10-30/HPF (0-5/HPF)
== END ==
PROVIDERS: Family Provider Family Medicine; PCP Family Medicine; Visit Provider Specialist
DX: N13.5 Crossing vessel and stricture of ureter without hydronephrosis (principal); Z87.440 Personal history of urinary (tract) infections; N95.2 Postmenopausal atrophic vaginitis; Z96.0 Presence of urogenital implants
CPT/HCPCS: 52310; 81001; 81002; 87077; 87086; 87186

== ENCOUNTER 2022-06-28 13:31 | Emergency (ER) | payer BC, SELFPAY ==
[2022-02-20 18:38] VITALS: BMI 26.4
[2022-06-28 13:38] VITALS: BP 147/67; PULSE 87; RESP 15; TEMP 36; O2SAT 97; BMI 25.4
--- NOTE | 2022-06-28 14:16 | DI.CT.S_ITS ---
PROCEDURE: CT CERVICAL SPINE WO CON INDICATIONS: fall head injury TECHNIQUE: Noncontrast 3 mm thick sections acquired from the skull base to the T4 level. Sagittal and coronal reformats were then constructed. For radiation dose reduction, the following was used: automated exposure control, adjustment of mA and/or kV according to patient size. COMPARISON: [facility], CT, CT CERVICAL SPINE WO CON, 05/12/2018, 11:50. FINDINGS: Image quality: Excellent. Bones: No fractures or dislocations. Visualized superior ribs are intact. Severe multilevel degenerative changes redemonstrated Soft tissues: Prevertebral soft tissues are normal in thickness. No paravertebral hematomas. No apical pneumothoraces. IMPRESSION: No acute cervical spine fracture visualized. Dictated by: Cirilo Louis M.D. on 06/28/2022 at 15:30 Approved by: Cirilo Louis M.D. on 06/28/2022 at 15:33
--- NOTE | 2022-06-28 14:16 | DI.CT.S_ITS ---
PROCEDURE: CT HEAD/BRAIN WO CON INDICATIONS: fall head injury TECHNIQUE: Noncontrast 4.5 mm thick angled axial sections acquired from the foramen magnum to the vertex, with coronal and sagittal reformats. For radiation dose reduction, the following was used: automated exposure control, adjustment of mA and/or kV according to patient size. COMPARISON: [facility], CT, CT HEAD/BRAIN WO CON, 01/17/2021, 11:48. FINDINGS: Image quality: Excellent. CSF spaces: Basal cisterns are patent. No extra-axial fluid collections. The ventricles are symmetric in size and shape. Brain: No intracranial bleeds or masses. There is cerebral volume loss for age, with resultant ventricular and sulcal prominence. There are periventricular and deep white matter chronic small vessel ischemic changes. There is intracranial internal carotid artery atherosclerosis. Skull and face: Calvarium and visualized facial bones appear intact, without suspicious lesions. Possible small right scalp hematoma Sinuses: Visualized sinuses and mastoids are clear. IMPRESSION: No intracranial hemorrhage or other acute intracranial abnormality. Dictated by: Cirilo Louis M.D. on 06/28/2022 at 15:27 Approved by: Cirilo Louis M.D. on 06/28/2022 at 15:30
--- NOTE | 2022-06-28 14:20 | PC.NURSE ---
When pt returned from CT the laceration above right eyebrow began to bleed. Dressing applied.
[2022-06-28 15:45] VITALS: BP 146/65; PULSE 79; O2SAT 98
--- NOTE | 2022-06-28 16:13 | ED.FALL ---
HPI - Fall <Kash Tinsley PA-C - Last Filed: 06/28/22 16:48> General Chief Complaint: Fall Stated Complaint: Slip, trip & fall Time Seen by Provider: 06/28/22 14:16 Source: patient Mode of arrival: EMS History of Present Illness HPI Narrative: Patient is a 82-year-old female who presents to emergency room today with complaint of fall today around noon in the grocery store parking lot. States she was walking out to her car loading groceries to turn around tripped over something that was in front of her. Denies any loss of consciousness denies any dizziness prior to the fall. However admits to a fall about 2 years ago where she fell after tripping. Admits to a history of hypertension and hypothyroidism but denies any history of neurological or cardiac concerns. Denies loss of consciousness during this fall denies changes in vision after this fall also denies nausea or vomiting loss of memory or changes in gait related to this fall. Related Data Home Medications Medication Instructions Recorded Confirmed aspirin 81 mg tablet,delayed 81 mg PO BEDTIME 03/01/18 02/20/22 release (Adult Low Dose Aspirin) cholecalciferol (vitamin D3) 25 1,000 unit PO DAILY 03/01/18 02/20/22 mcg (1,000 unit) capsule krill oil 500 mg capsule 500 mg PO DAILY 03/01/18 02/20/22 [id number]--zinc 1 tab PO Q OTHER DAY 10/01/20 02/20/22 amlodipine 10 mg tablet 10 mg PO BEDTIME 02/20/22 02/20/22 Previous Rx's Medication Instructions Recorded omeprazole 40 mg capsule,delayed 40 mg PO DAILY #90 caps 06/17/21 release metoprolol tartrate 25 mg tablet 12.5 mg PO BID #90 tabs 07/15/21 lisinopril 10 mg tablet 10 mg PO BEDTIME #90 tabs 03/26/22 ospemifene 60 mg tablet (Osphena) 60 mg PO DAILY #90 tabs 05/20/22 levothyroxine 125 mcg tablet 125 mcg PO DAILY #90 tabs 05/21/22 ciprofloxacin HCl 250 mg tablet 250 mg PO BID #20 tabs 05/23/22 (Cipro) bupropion HCl 150 mg 24 hr tablet, 150 mg PO QAM #90 tabs 05/27/22 extended release Allergies Allergy/AdvReac Type Severity Reaction Status Date / Time shellfish derived Allergy Severe MUSSELS - Verified 06/28/22 13:42 ANAPHYLAXIS amoxicillin Allergy Mild RASH, Verified 06/28/22 13:42 DIARRHEA nitrofurantoin AdvReac Severe diarrhea,vomiting, Verified 06/28/22 13:42 rectal bleeding Review of Systems <Kash Tinsley PA-C - Last Filed: 06/28/22 16:48> Review of Systems Narrative: R.O.S.: General: No fever, chills or fatigue. Cardiovascular: No chest pain or palpitations Respiratory: No S.O.B. HEENT: No congestion, ear pain, rhinorrhea, sore throat or tinnitus Gastrointestinal: No nausea or vomiting : No urinary concerns Skin: Laceration to forehead Musculoskeletal: No pain in muscles or joints, no limitation of range of motion, no paresthesia or numbness. ?? Neurological: Awake, alert and in not apparent distress. No Headaches, changes in vision or other related neurological concerns. 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 Precancerous skin lesion (~2006) Shoulder pain (2014) Tinnitus (2009) Surgical History Anesthesia H/O hysterectomy for benign disease (1994) History of abdominoplasty (1981) History of bilateral tubal ligation (1969) History of cataract surgery (2014) History of section (1969) History of cholecystectomy History of partial hysterectomy (1989) History of tonsillectomy (1945) History of ureter repair (2013) Hx of cystoscopy (03/24/16) Hx of thyroid irradiation (1989) Status post tubal ligation Family History Brother Heart disease Brother Emphysema of lung Family/Other Influenza Father Heart attack Grandmother Esophageal cancer Mother Esophageal cancer Grandfather Heart attack Sister Pancreatic cancer Unknown Heart disease Smoker Grandfather No problems noted. Grandmother No problems noted. Social History marital status: household members: spouse occupational status: previously employed and other (Retired from the [employer]) Smoking Status: Never smoker alcohol intake: current substance use type: does not use Smoking Status: Never smoker alcohol intake frequency: 0-2 drinks per day Substance Use Type: does not use Exam <Kash Tinsley PA-C - Last Filed: 06/28/22 16:48> Narrative Exam Narrative: Physical Exam: ? General: normal appearance, well developed, well nourished, alert, and awake. Not in acute distress. ? Head: Patient has bruising to the right anterior lateral forehead area. The area is very minor swelling with minimal bleeding from a laceration in that area. The laceration is about 1 cm in vertical length. Chest: Lungs CTAB, no rales, rhonchi or wheezes. ?? Heart: RRR, no murmurs, rubs or gallops. Eyes: PERRLA, EOM's full, conjunctivae clear. ? Neuro: Physiological, no localizing findings, CN3-12 intact. Patient has intact tandem walk good heel walk good shape to walk negative Romberg testing. ? Extremities: Warm, well perfused, FROM, no deformities, no edema. ?? Skin: Patient has an approximate 1 cm laceration to the right forehead area. The area has minimal bleeding moderate erythema. ? PSYCHIATRIC: The mood is good, no blunted affect. Speech is clear. Thought process is linear, thought content is appropriate. The voice is without significant inflection. Gastrointestinal: Soft; NT; ND; Pos BS with Neg. rebound tenderness. No scars or major deformities noted on Visual Inspection. Initial Vital Signs Initial Vital Signs: Vital Signs Temperature 96.8 F L 06/28/22 13:38 Pulse Rate 87 06/28/22 13:38 Respiratory Rate 15 06/28/22 13:38 Blood Pressure 147/67 H 06/28/22 13:38 Pulse Oximetry 97 06/28/22 13:38 Oxygen Delivery Method 06/28/22 13:38 <Lyn Bazzi DO - Last Filed: 06/29/22 11:04> Initial Vital Signs Initial Vital Signs: Vital Signs Temperature 96.8 F L 06/28/22 13:38 Pulse Rate 87 06/28/22 13:38 Respiratory Rate 15 06/28/22 13:38 Blood Pressure 147/67 H 06/28/22 13:38 Pulse Oximetry 97 06/28/22 13:38 Oxygen Delivery Method 06/28/22 13:38 Course <Kash Tinsley PA-C - Last Filed: 06/28/22 16:48> Orders Ordered: Discontinued Medications Neomycin/Polymyxin/Bacitracin (Neomycin/Polymyxin/Bacitra Ud Oint) 1 each TOP NOW ONE Stop: 06/28/22 16:37 Last Admin: 06/28/22 16:40 Dose: 1 each Documented By: NR Vital Signs Vital signs: Vital Signs - 8 hr 06/28/22 13:38 06/28/22 15:45 Temperature 96.8 F L Pulse Rate 87 79 Respiratory Rate 15 Blood Pressure 147/67 H 146/65 H Pulse Oximetry 97 98 Oxygen Delivery Method Room Air Room Air <Lyn Bazzi DO - Last Filed: 06/29/22 11:04> Orders Ordered: Discontinued Medications Neomycin/Polymyxin/Bacitracin (Neomycin/Polymyxin/Bacitra Ud Oint) 1 each TOP NOW ONE Stop: 06/28/22 16:37 Last Admin: 06/28/22 16:40 Dose: 1 each Documented By: NR Vital Signs Vital signs: Vital Signs - 8 hr 06/28/22 13:38 06/28/22 15:45 Temperature 96.8 F L Pulse Rate 87 79 Respiratory Rate 15 Blood Pressure 147/67 H 146/65 H Pulse Oximetry 97 98 Oxygen Delivery Method Room Air Room Air MDM - Fall <Kash Tinsley PA-C - Last Filed: 06/28/22 16:48> Imaging Data CT scan - head: Radiologist's Impression: [address] [address] [address] Scan Report Signed Patient: Kimberly Tony MR#: [id number] : 1940 Acct:[id number] Age/Sex: 82 / F Date of Service: 06/28/22 Loc: ED Accession Number: [id number] ?? Procedure: CT head/brain wo con Ordering Provider: Lyn Bazzi D.O. PROCEDURE:? CT HEAD/BRAIN WO CON ? INDICATIONS:? fall head injury ? TECHNIQUE:? Noncontrast 4.5 mm thick angled axial sections acquired from the foramen magnum to the vertex, with coronal and sagittal reformats.? For radiation dose reduction, the following was used:? automated exposure control, adjustment of mA and/or kV according to patient size.? ? COMPARISON:? [facility], CT, CT HEAD/BRAIN WO CON, 01/17/2021, 11:48. ? FINDINGS:? Image quality:? Excellent.? ? CSF spaces:? Basal cisterns are patent.? No extra-axial fluid collections.? The ventricles are symmetric in size and shape.? ? Brain:? No intracranial bleeds or masses.? There is cerebral volume loss for age, with resultant ventricular and sulcal prominence.? There are periventricular and deep white matter chronic small vessel ischemic changes.? There is intracranial internal carotid artery atherosclerosis.? ? Skull and face:? Calvarium and visualized facial bones appear intact, without suspicious lesions.? Possible small right scalp hematoma ? Sinuses:? Visualized sinuses and mastoids are clear.? ? IMPRESSION:? No intracranial hemorrhage or other acute intracranial abnormality. ? ? Dictated by: Cirilo Louis M.D. on 06/28/2022 at 15:27 ? ? Approved by: Cirilo Louis M.D. on 06/28/2022 at 15:30 ? MDM Narrative Medical decision making narrative: Present presents to the emergency room status post fall earlier today etiology and physical exam totally consistent with a trip and fall. Patient has no cardiac or neurologic etiology that would suggest any other reasons for the fall. Patient also has a small laceration to the forehead. CT scan was negative for bleed. Steri-Strips were placed to close the laceration patient was discharged instructions to return for any emergent concerns Discharge Plan Departure Patient Disposition: Home Clinical Impression: Fall, Face lacerations Instructions: Laceration Repair, How to Prevent Falls Activity Restrictions/Additional Instructions: *You have been diagnosed with laceration to your face status post fall. Your physical exam and history are consistent with trip and fall. I suggest to be careful in the future to try and prevent future falls also suggest you contact your primary provider should any cardiac or neurological concerns arise. Also advised to return to the emergency room for emergent concerns arise. [ ] *What to do: *Please continue to take your regular medications as directed. [ ] New medication prescriptions sent to your pharmacy: [ ] [ ] New medication written as a paper prescription [x] No new medications given *Please follow up with your primary care provider in 2-3 days, call for an appointment. Let them know you were seen in the Emergency Department and that we ask that you be seen in follow up. We will electronically transmit a record of today's note if your PCP is in our system *If you do not have a primary care provider please contact the [facility] Resource line at [phone]. They will ask some questions about your medical history and help get you set up with a doctor in the community. *Return to Emergency Department if you should have any new, worsening or concerning symptoms, such as [fever greater than 101 F, shaking chills, worsening pain, persistent vomiting or other bothersome symptoms] Prescriptions: No Action bupropion HCl 150 mg tablet extended release 24 hr 150 mg PO QAM Qty: 90 1RF omeprazole 40 mg capsule,delayed release(DR/EC) 40 mg PO DAILY Qty: 90 3RF metoprolol tartrate 25 mg tablet 12.5 mg PO BID Qty: 90 3RF lisinopril 10 mg tablet 10 mg PO BEDTIME Qty: 90 3RF levothyroxine 125 mcg tablet 125 mcg PO DAILY Qty: 90 1RF ciprofloxacin HCl [Cipro] 250 mg tablet 250 mg PO BID Qty: 20 0RF krill oil 500 mg capsule 500 mg PO DAILY cholecalciferol (vitamin D3) 1,000 unit capsule 1,000 unit PO DAILY aspirin [Adult Low Dose Aspirin] 81 mg tablet,delayed release (DR/EC) 81 mg PO BEDTIME [id number]-mag--zinc 1 tab PO Q OTHER DAY amlodipine 10 mg tablet 10 mg PO BEDTIME Osphena 60 mg tablet 60 mg PO DAILY Qty: 90 3RF Rx Instructions: must administer with food, preferably a high-fat meal Referrals: Haley Dewey DO [Primary Care Provider] - Visit Report Forms: Patient Portal/API <Lyn Bazzi DO - Last Filed: 06/29/22 11:04> Cosign ED Attending Cosignature Attestation: I was immediately available in the department for consultation. Documentation has been reviewed. Imaging was reviewed. Case discussed.
[2022-06-28] MEDS: NEOMYCIN/POLYMYXIN/BACITRA UD OINT 1 EACH TOP (16:40)
--- NOTE | 2022-06-28 16:42 | PC.NURSE ---
cleansed right forehead lac with sterile water. skin adhesive, steristrip x 3 no bleeding. pt tolerated procedure well. triple abx ointment home with.
[2022-06-28 16:43] VITALS: BP 140/60; PULSE 75; RESP 18; O2SAT 98
== END 2022-06-28 16:51 | disposition home or self-care (01) ==
PROVIDERS: Emergency Provider Physician Assistant; Family Provider Family Medicine; PCP Family Medicine
DX: S01.81XA Laceration without foreign body of other part of head, initial encounter (principal); S09.90XA Unspecified injury of head, initial encounter; W01.0XXA Fall on same level from slipping, tripping and stumbling without subsequent striking against object, initial encounter
CPT/HCPCS: 70450; 72125; 99283

== ENCOUNTER 2022-06-29 10:58 | Emergency (ER) | payer BC, SELFPAY ==
[2022-02-20 18:38] VITALS: BMI 26.4
[2022-06-29 11:28] VITALS: BP 139/60; PULSE 87; RESP 18; TEMP 36.2; O2SAT 97
--- NOTE | 2022-06-29 11:33 | DI.RAD.S_ITS ---
PROCEDURE: XR KNEE RT 3V INDICATIONS: fall TECHNIQUE: 3 views of the knee were acquired. COMPARISON: [facility], CR, XR KNEE RT 3V, 05/11/2019, 13:12. [facility], CR, KNEE 1-2 VIEWS RIGHT, 10/03/2008, 9:13. [facility], CR, XR KNEE LT 3V, 02/08/2022, 10:08. FINDINGS: Bones: On the sunrise view, there is a mildly displaced, intra-articular fracture of the patella. No suspicious bony lesions. Generalized degenerative changes are seen, including moderate lateral patellofemoral joint space narrowing. Soft tissues: There is a moderate joint effusion. Calcification can be seen along the joint line, which is attributed to meniscal calcification. IMPRESSION: Patella fracture, with intra-articular involvement. Moderate joint effusion. Dictated by: Amish Wills M.D. on 06/29/2022 at 11:23 Approved by: Amish Wills M.D. on 06/29/2022 at 11:25
--- NOTE | 2022-06-29 14:06 | ED.FALL ---
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 Patient was seen yesterday had head CT and C-spine which were negative. She is on aspirin daily. She states she had some pain in her knee but was able to walk on it yesterday she presents today as pain has increased swelling and bruising as well. Patient states it is quite painful to weightbear today. She has some bruising of her left knee but not as significantly. She denies headache today, no neck or back pain that is new. No other neurologic changes. No numbness or tingling. She has seen Dr. Hair in another orthopedic surgeon at [facility] in the past. She does live at home with her significant other, she sometimes uses a walker but not always but states she normally walks independently. Related Data Home Medications Medication Instructions Recorded Confirmed aspirin 81 mg tablet,delayed 81 mg PO BEDTIME 03/01/18 02/20/22 release (Adult Low Dose Aspirin) cholecalciferol (vitamin D3) 25 1,000 unit PO DAILY 03/01/18 02/20/22 mcg (1,000 unit) capsule krill oil 500 mg capsule 500 mg PO DAILY 03/01/18 02/20/22 [id number] T2-[id number]-U-mag--zinc 1 tab PO Q OTHER DAY 10/01/20 02/20/22 amlodipine 10 mg tablet 10 mg PO BEDTIME 02/20/22 02/20/22 Previous Rx's Medication Instructions Recorded omeprazole 40 mg capsule,delayed 40 mg PO DAILY #90 caps 06/17/21 release metoprolol tartrate 25 mg tablet 12.5 mg PO BID #90 tabs 07/15/21 lisinopril 10 mg tablet 10 mg PO BEDTIME #90 tabs 03/26/22 ospemifene 60 mg tablet (Osphena) 60 mg PO DAILY #90 tabs 05/20/22 levothyroxine 125 mcg tablet 125 mcg PO DAILY #90 tabs 05/21/22 ciprofloxacin HCl 250 mg tablet 250 mg PO BID #20 tabs 05/23/22 (Cipro) bupropion HCl 150 mg 24 hr tablet, 150 mg PO QAM #90 tabs 05/27/22 extended release oxycodone 5 mg tablet 5 mg PO QID PRN pain #14 tabs 06/29/22 Allergies Allergy/AdvReac Type Severity Reaction Status Date / Time shellfish derived Allergy Severe MUSSELS - Verified 06/29/22 11:28 ANAPHYLAXIS amoxicillin Allergy Mild RASH, Verified 06/29/22 11:28 DIARRHEA nitrofurantoin AdvReac Severe diarrhea,vomiting, Verified 06/29/22 11:28 rectal bleeding Review of Systems Review of Systems ROS Unobtainable: All systems reviewed & are unremarkable except as noted in HPI and below Patient History Medical History Acute colitis Anxiety (2013) Coppola's syndrome Cataract (2015) Colon polyps Congenital stricture of urethra Depression (2013) Giant cell arteritis Graves' disease Hayfever History of UTI Hypertension Hypothyroidism 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 Precancerous skin lesion (~2006) Shoulder pain (2014) Tinnitus (2009) Surgical History Anesthesia H/O hysterectomy for benign disease (1994) History of abdominoplasty (1981) History of bilateral tubal ligation (1969) History of cataract surgery (2014) History of section (1969) History of cholecystectomy History of partial hysterectomy (1989) History of tonsillectomy (1945) History of ureter repair (2013) Hx of cystoscopy (03/24/16) Hx of thyroid irradiation (1989) Status post tubal ligation Family History Brother Heart disease Brother Emphysema of lung Family/Other Influenza Father Heart attack Grandmother Esophageal cancer Mother Esophageal cancer Grandfather Heart attack Sister Pancreatic cancer Unknown Heart disease Smoker Grandfather No problems noted. Grandmother No problems noted. Social History marital status: household members: spouse occupational status: previously employed and other (Retired from the [employer]) Smoking Status: Never smoker alcohol intake: current substance use type: does not use Smoking Status: Never smoker alcohol intake frequency: 0-2 drinks per day Substance Use Type: does not use Exam Narrative Exam Narrative: GEN: well nourished, well appearing elderly female, alert and oriented x 3, patient appears to be in mild distress. HEENT: Bandage on left forehead, pupils are equal round reactive to light, extraocular movements are intact, nares are clear, TMs are clear with no fluid, there is no conjunctival pallor. Throat is clear without any exudates, erythema, tonsillar enlargement or uvular deviation, no cervical tenderness HEART: Regular rate and rhythm without murmur, clicks, rubs. No carotid bruits, pulses are equal in upper and lower extremities LUNGS:Lungs clear to auscultation, no wheezes, rales, crackles, chest moves symmetrically ABD:bowel sounds normal, soft, non-tender, no guarding, rebound, rigidity, no masses noted, no hepatosplenomegaly :No CVA tenderness BACK: No cervical, thoracic or lumbar vertebral point tenderness. Patient has normal range of motion. MSCL: Patient has pain over the right knee particularly the patella she can straighten but is too painful to completely straighten to 180? or completely extended. Patient has quite a bit of swelling, ecchymosis, not tracking down word on her leg. No other bony tenderness throughout the leg and has normal movement at the hip and ankle and foot. Neurovascularly intact. No muscle atrophy, muscles strength 5/5 upper and lower extremities. NEURO:CN 2-12 intact, sensation normal. Initial Vital Signs Initial Vital Signs: Vital Signs Temperature 97.1 F L 06/29/22 11:28 Pulse Rate 87 06/29/22 11:28 Respiratory Rate 18 06/29/22 11:28 Blood Pressure 139/60 06/29/22 11:28 Pulse Oximetry 97 06/29/22 11:28 Oxygen Delivery Method 06/29/22 11:28 Course Orders Ordered: ED Orders 06/29/22 11:33 XR knee RT 3V Stat Discontinued Medications Oxycodone/Acetaminophen (Oxycodone/Acetaminophen 5/325 Tablet) 1 tab PO NOW ONE Stop: 06/29/22 14:24 Last Admin: 06/29/22 14:51 Dose: 1 tab Documented By: CTS Consultations Consultation #1: Dr. Forte, orthopedic surgery. Reviewed images and films discussed patient can not completely straighten out to 180 but mostly. Plan for pain management, follow-up in 7-10 days likely non operative. Time: 14:32 Vital Signs Vital signs: Vital Signs - 8 hr 06/29/22 11:28 06/29/22 15:06 Temperature 97.1 F L Pulse Rate 87 70 Respiratory Rate 18 16 Blood Pressure 139/60 140/72 Pulse Oximetry 97 97 Oxygen Delivery Method Room Air Room Air MDM - Fall Imaging Data Extremity x-ray #1: Radiologist's Impression: [address] [address] XRay Report Signed Patient: Kimberly Tony MR#: [id number] : 1940 Acct:[id number] Age/Sex: 82 / F Date of Service: 06/29/22 Loc: ED Accession Number: [id number] ?? Procedure: XR knee RT 3V Ordering Provider: Lyn Bazzi D.O. PROCEDURE:? XR KNEE RT 3V ? INDICATIONS:? fall ? TECHNIQUE:? 3 views of the knee were acquired.? ? COMPARISON:? [facility], XR KNEE RT 3V, 05/11/2019, 13:12.? [facility], KNEE 1-2 VIEWS RIGHT, 10/03/2008, 9:13.? [facility], XR KNEE LT 3V, 02/08/2022, 10:08. ? FINDINGS:? ? Bones:? On the sunrise view, there is a mildly displaced, intra-articular fracture of the patella.? No suspicious bony lesions.? ? Generalized degenerative changes are seen, including moderate lateral patellofemoral joint space narrowing. ? Soft tissues:? There is a moderate joint effusion.? Calcification can be seen along the joint line, which is attributed to meniscal calcification. ? ? IMPRESSION:? Patella fracture, with intra-articular involvement. ? Moderate joint effusion.? ? Dictated by: Amish Wills M.D. on 06/29/2022 at 11:23 ? ? Approved by: Amish Wills M.D. on 06/29/2022 at 11:25?? MDM Narrative Medical decision making narrative: This is an 82-year-old female comes emergency department with complaint of right knee pain after fall yesterday she was ambulating okay on the knee yesterday she states it was not that painful but represents today head CT and C-spine were negative yesterday patient does not have any new neurologic changes making me suspicious to rescanned today. Right knee does show a patellar fracture. Reviewed with Orthopedic surgery plan for nonoperative management, knee immobilization, pain management and follow-up in 7-10 days. Discharge Plan Departure Patient Disposition: Home Clinical Impression: Closed patellar sleeve fracture of right knee, Fall Instructions: DI for Patella Fracture Activity Restrictions/Additional Instructions: Follow-up with with orthopedic surgery for recheck. Call for an appointment on Thursday morning. Orthopedic surgery plans to see in the next 7-10 days. You can take Tylenol up to a 1000 mg every 6 hours needed for pain. You can take a leave as prescribed [id number] as well. If in adequate you can take 1-2 tablets of oxycodone every 6 hours as needed for pain. This medication can make you sleepy do not drive, perform hazardous activities or make any major decisions while taking it. This medication will make you constipated please take a stool softener once to twice daily until stools are soft and regular. Prescription sent to [facility]. Photo recommend continue using a walker at home to assist with balance. Splint Care: Keep splint clean and dry. Elevated affected body part to decrease swelling. OK to use ice pack on the affected body part. Use for 15-20 minutes each time, for 5-6x per day. If you develop worsening pain, numbness, tingling, discoloration of the affected body part, loosen the splint by loosening the LUIS ARMANDO wrap, and either see your doctor for an urgent re-assessment, or return to the Emergency Department. Return to the Emergency Department for any new or worsening symptoms. Prescriptions: New oxycodone 5 mg tablet 5 mg PO QID PRN (Reason: pain) Qty: 14 0RF No Action bupropion HCl 150 mg tablet extended release 24 hr 150 mg PO QAM Qty: 90 1RF omeprazole 40 mg capsule,delayed release(DR/EC) 40 mg PO DAILY Qty: 90 3RF metoprolol tartrate 25 mg tablet 12.5 mg PO BID Qty: 90 3RF lisinopril 10 mg tablet 10 mg PO BEDTIME Qty: 90 3RF levothyroxine 125 mcg tablet 125 mcg PO DAILY Qty: 90 1RF ciprofloxacin HCl [Cipro] 250 mg tablet 250 mg PO BID Qty: 20 0RF krill oil 500 mg capsule 500 mg PO DAILY cholecalciferol (vitamin D3) 1,000 unit capsule 1,000 unit PO DAILY aspirin [Adult Low Dose Aspirin] 81 mg tablet,delayed release (DR/EC) 81 mg PO BEDTIME [id number] I1-[id number]-U-mag--zinc 1 tab PO Q OTHER DAY amlodipine 10 mg tablet 10 mg PO BEDTIME Osphena 60 mg tablet 60 mg PO DAILY Qty: 90 3RF Rx Instructions: must administer with food, preferably a high-fat meal Referrals: Swetha Forte MD [Physician] - Haley Dewey DO [Primary Care Provider] - Visit Report Forms: Patient Portal/API
--- NOTE | 2022-06-29 14:26 | PC.NURSE ---
called dr Swetha Forte for ortho consult for dr cabrera cell # [phone].
[2022-06-29] MEDS: OXYCODONE/ACETAMINOPHEN 5/325 TABLET 1 TAB PO (14:51)
[2022-06-29 15:06] VITALS: BP 140/72; PULSE 70; RESP 16; O2SAT 97
== END 2022-06-29 15:06 | disposition home or self-care (01) ==
PROVIDERS: Emergency Provider Emergency Medicine; Family Provider Family Medicine; PCP Family Medicine
DX: S82.091A Other fracture of right patella, initial encounter for closed fracture (principal); W18.30XA Fall on same level, unspecified, initial encounter
CPT/HCPCS: 73562; 99283

== ENCOUNTER → 2022-08-29 09:43 | Outpatient (CLI) | payer BC, SELFPAY ==
[2022-02-20 18:38] VITALS: BMI 26.4
--- NOTE | 2022-08-29 09:45 | DI.NM.S_ITS ---
PROCEDURE: CT RENAL FUNCTION W LASIX RADIOPHARMACEUTICAL: 10 point mCi Tc-99m MAG3 IV and 40 mg furosemide IV. INDICATIONS: Kidney stone TECHNIQUE: The patient was hydrated orally before the examination was begun. After intravenous administration of Tc-99m MAG3, posterior abdominal radionuclide angiogram and sequential (1 minute each frame) renal images were obtained. A time-activity curve for each kidney was generated and analyzed. To evaluate for obstruction, the patient was given 40 mg furosemide via slow intravenous injection after the start of the examination. Sequential images were obtained for up to an additional 20 minutes. COMPARISON: [place], [place] RENAL FUNCTION W LASIX, 08/06/2020, 10:26. [place] RENAL FUNCTION W LASIX, 08/01/2019, 10:59. [place] RENAL FUNCTION W LASIX, 03/12/2018, 11:15. [place] RENAL FUNCTION W LASIX, 08/15/2021, 12:35. [place] RENAL FUNCTION W LASIX, 11/12/2021, 10:31. [facility], CT, CT ABDOMEN PELVIS WO CON, 02/20/2022, 15:15. [facility], CT, CT KIDNEY URETER BLADDER (KUB), 03/07/2022, 10:56. FINDINGS: Perfusion: There is normal vascular flow to both kidneys. Morphology: Both kidneys are normal in size and shape. The right renal collecting system is dilated. The ureters and bladder fill with tracer, and appear normal. Function: Both kidneys demonstrate delayed cortical tracer uptake and excretion, with [id number] activity for right kidney at 17.5 minutes and left kidney 15.0 minutes (normal range 3 to 5 minutes). The right kidney contributes 40.6% of total renal function. The left kidney contributes 59.4% of total renal function. Lasix stimulation: After diuretic administration, there is prompt clearance of tracer activity from the renal collecting systems in both kidneys. The half-time of emptying of tracer activity from the right pelvicaliceal system is >20 minutes. The half-time of emptying from the left pelvicaliceal system is 11.1 minutes. Normal emptying half-times are less than 10 minutes; borderline ranges are from 10 to 20 minutes. IMPRESSION: 1. Delayed renal cortical uptake and excretion of tracer bilaterally. 2. Dilated right renal collecting system with prolonged T1/2 (>20 min) cnsistent with right renal obstruction. 3. The left kidney is not obstructed. 4. Right kidney contributes 40.6% of total renal function; left kidney contributes 59.4% of total renal function. Dictated by: Cheryl Diaz M.D. on 08/29/2022 at 11:21 Approved by: Cheryl Diaz M.D. on 08/29/2022 at 11:36
== END ==
PROVIDERS: Family Provider Family Medicine; PCP Family Medicine; Referring Provider Specialist; Visit Provider Specialist
DX: N13.5 Crossing vessel and stricture of ureter without hydronephrosis (principal); Z87.440 Personal history of urinary (tract) infections
CPT/HCPCS: 78708; A9562

== ENCOUNTER → 2022-09-16 11:18 | Outpatient (CLI) | payer BC, SELFPAY ==
[2022-02-20 18:38] VITALS: BMI 26.4
== END ==
PROVIDERS: Family Provider Family Medicine; PCP Family Medicine; Visit Provider Specialist
DX: N13.5 Crossing vessel and stricture of ureter without hydronephrosis (principal); N95.2 Postmenopausal atrophic vaginitis; Z87.440 Personal history of urinary (tract) infections
CPT/HCPCS: 81002; 87077; 87086; 87186

== ENCOUNTER → 2022-09-26 11:54 | Outpatient (CLI) | payer BC, SELFPAY ==
[2022-02-20 18:38] VITALS: BMI 26.4
[2022-09-26 13:23] LABS: Add Manual Diff / Slide Review NO; Basophils Absolute Auto 100 /uL (0-100); Eosinophils Absolute Auto 200 /uL (0-450); Eosinophils Percent Auto 2.8 % (2-4); Hematocrit 39.7 % (36-46); Hemoglobin 13.3 g/dL (12.0-16.0); Lymphocytes Absolute Auto 1100 /uL (1100-4500); Lymphocytes Percent Auto 17.6 % (25-40); Mean Corpuscular HGB Conc 33.6 % (30-36); Mean Corpuscular Hemoglobin 33.1 PG (26-34); Mean Corpuscular Volume 98.5 fL (80-100); Monocytes Absolute Auto 500 /uL (0-900); Monocytes Percent Auto 8.4 % (3-14); Neutrophils Absolute Auto 4200 /uL (1500-7000); Neutrophils Percent Auto 70.2 % (50-75); Platelet Count 435 X10^3/uL (150-400); Red Blood Cell Count 4.03 X10^6/uL (4.0-5.2)
[2022-09-26 13:41] LABS: Alanine Aminotransferase 29 IU/L (<35); Albumin 4.2 g/dL (3.5-5.0); Albumin Globulin Ratio 1.3 (1.0-2.8); Alkaline Phosphatase 58 U/L (38-126); Aspartate Aminotransferase 36 IU/L (14-36); BUN Creatinine Ratio 13.1 (6-22); Bilirubin Total 0.2 mg/dL (0.2-1.3); Blood Urea Nitrogen 8 mg/dL (7-17); Calcium 9.2 mg/dL (8.4-10.2); Carbon Dioxide 26 mmol/L (22-32); Chloride 94 mmol/L (98-107); Estimated Glomerular Filt Rate > 60 mL/min (>60); Globulin 3.3 g/dL (1.7-4.1); Glucose 102 mg/dL (80-110); HEMOLYSIS < 15 (0-50); Potassium 4.9 mmol/L (3.4-5.1); Sodium 132 mmol/L (137-145); Total Protein 7.5 g/dL (6.3-8.2)
[2022-09-26 14:09] LABS: TSH w/ Reflex to FT4 0.41 uIU/mL (0.47-4.68)
== END ==
PROVIDERS: Family Provider Family Medicine; PCP Family Medicine; Referring Provider Family Medicine; Visit Provider Family Medicine
DX: E89.0 Postprocedural hypothyroidism (principal); I10 Essential (primary) hypertension; R63.4 Abnormal weight loss
CPT/HCPCS: 36415; 80053; 84439; 84443; 85025

== ENCOUNTER → 2022-11-10 13:22 | Outpatient (CLI) | payer BC, SELFPAY ==
[2022-02-20 18:38] VITALS: BMI 26.4
[2022-11-10 15:10] LABS: TSH w/ Reflex to FT4 2.64 uIU/mL (0.47-4.68)
== END ==
PROVIDERS: Family Provider Family Medicine; PCP Family Medicine; Referring Provider Family Medicine; Visit Provider Family Medicine
DX: E89.0 Postprocedural hypothyroidism (principal)
CPT/HCPCS: 36415; 84443

== ENCOUNTER → 2023-01-23 16:34 | Outpatient (CLI) | payer BC, SELFPAY ==
[2022-02-20 18:38] VITALS: BMI 26.4
[2023-01-23 18:12] LABS: Microalbumin Urine Random 8.4 mg/dL (0-1.6)
== END ==
PROVIDERS: Family Provider Family Medicine; PCP Family Medicine; Referring Provider Family Medicine; Visit Provider Family Medicine
DX: I10 Essential (primary) hypertension (principal)
CPT/HCPCS: 82043; 82570

== ENCOUNTER → 2023-01-30 09:47 | Outpatient (CLI) | payer BC, SELFPAY ==
[2022-02-20 18:38] VITALS: BMI 26.4
--- NOTE | 2023-01-30 09:48 | DI.NM.S_ITS ---
PROCEDURE: [place] RENAL FUNCTION W LASIX RADIOPHARMACEUTICAL: 10.0 mCi Tc-99m MAG3 IV and 20 mg furosemide IV. INDICATIONS: Mag3 Lasix Renogram TECHNIQUE: The patient was hydrated orally before the examination was begun. After intravenous administration of Tc-99m MAG3, posterior abdominal radionuclide angiogram and sequential (1 minute each frame) renal images were obtained. A time-activity curve for each kidney was generated and analyzed. To evaluate for obstruction, the patient was given 40 mg furosemide via slow intravenous injection after the start of the examination. Sequential images were obtained for up to an additional 20 minutes. COMPARISON: [place] RENAL FUNCTION W LASIX, 08/06/2020, 10:26. [place] RENAL FUNCTION W LASIX, 08/15/2021, 12:35. CT, CT KIDNEY URETER BLADDER (KUB), 03/07/2022, 10:56. [place] RENAL FUNCTION W LASIX, 08/29/2022, 9:59. FINDINGS: Perfusion: There is normal vascular flow to both kidneys. Morphology: Both kidneys are normal in size. There are cortical scars in the superior pole of the right kidney. The right renal collecting system appears dilated. No left renal collecting system dilation. The left ureter and bladder fill with tracer, and appear normal. Right ureter is not well seen. Function: Both kidneys demonstrate delayed cortical tracer uptake and excretion, with evag-yg-uybt activity at 17 minutes for right kidney and 11 minutes for left minutes. The right kidney contributes 41.0% of total renal function. The left kidney contributes 59.0% of total renal function. Lasix stimulation: After diuretic administration, there is prompt clearance of tracer activity from the renal collecting system by the left kidney. There is delayed clearance of the left renal pelvic activity. The half-time of emptying of tracer activity from the right pelvicaliceal system is >20 minutes. The half-time of emptying from the left pelvicaliceal system is 7.9 minutes. Normal emptying half-times are less than 10 minutes; borderline ranges are from 10 to 20 minutes. IMPRESSION: 1. Mild delayed renal cortical uptake and excretion of tracer bilaterally, right greater than left. 2. Stable split renal function. Right kidney contributes 41% and left kidney 59% of total renal function. 3. Persistent right UPJ obstruction. 4. No left renal obstruction. Dictated by: Cheryl Diaz M.D. on 01/30/2023 at 12:01 Approved by: Cheryl Diaz M.D. on 01/30/2023 at 12:53
== END ==
PROVIDERS: Family Provider Family Medicine; PCP Family Medicine; Referring Provider Specialist; Visit Provider Specialist
DX: N13.5 Crossing vessel and stricture of ureter without hydronephrosis (principal)
CPT/HCPCS: 78708; A9562

== ENCOUNTER → 2023-04-28 15:15 | Outpatient (CLI) | payer BC, SELFPAY ==
[2022-02-20 18:38] VITALS: BMI 26.4
== END ==
PROVIDERS: Family Provider Family Medicine; PCP Family Medicine; Visit Provider Family Medicine
DX: N89.8 Other specified noninflammatory disorders of vagina (principal)
CPT/HCPCS: 87210; 87220

== ENCOUNTER → 2023-04-29 09:53 | Outpatient (CLI) | payer BC, SELFPAY ==
[2022-02-20 18:38] VITALS: BMI 26.4
[2023-04-29 11:21] LABS: Add Manual Diff / Slide Review NO; Basophils Absolute Auto 0 /uL (0-100); Basophils Percent Auto 0.6 % (0-2); Eosinophils Absolute Auto 100 /uL (0-450); Eosinophils Percent Auto 2.1 % (2-4); Hematocrit 38.4 % (36-46); Lymphocytes Absolute Auto 800 /uL (1100-4500); Lymphocytes Percent Auto 14.5 % (25-40); Mean Corpuscular HGB Conc 33.9 % (30-36); Mean Corpuscular Hemoglobin 33.2 PG (26-34); Mean Corpuscular Volume 97.8 fL (80-100); Monocytes Absolute Auto 800 /uL (0-900); Monocytes Percent Auto 14.6 % (3-14); Neutrophils Absolute Auto 3700 /uL (1500-7000); Neutrophils Percent Auto 68.2 % (50-75); Platelet Count 336 X10^3/uL (150-400); Red Blood Cell Count 3.93 X10^6/uL (4.0-5.2); Red Cell Distribution Width 13.8 % (11.6-14.8); White Blood Cell Count 5.5 X10^3/uL (4.5-11.0)
[2023-04-29 11:40] LABS: Alanine Aminotransferase 21 IU/L (<35); Albumin Globulin Ratio 1.3 (1.0-2.8); Alkaline Phosphatase 56 U/L (38-126); Aspartate Aminotransferase 30 IU/L (14-36); Bilirubin Total 0.8 mg/dL (0.2-1.3); Blood Urea Nitrogen 7 mg/dL (7-17); Calcium 9.1 mg/dL (8.4-10.2); Carbon Dioxide 27 mmol/L (22-32); Chloride 88 mmol/L (98-107); Estimated Glomerular Filt Rate > 60 mL/min (>60); Globulin 3.2 g/dL (1.7-4.1); Glucose 112 mg/dL (80-110); HEMOLYSIS < 15 (0-50); Potassium 4.4 mmol/L (3.4-5.1); Sodium 123 mmol/L (137-145); Total Protein 7.2 g/dL (6.3-8.2); Uric Acid 3.5 mg/dL (2.5-6.2)
[2023-04-29 12:06] LABS: TSH w/ Reflex to FT4 3.04 uIU/mL (0.47-4.68)
== END ==
PROVIDERS: Family Provider Family Medicine; PCP Family Medicine; Referring Provider Family Medicine; Visit Provider Family Medicine
DX: E89.0 Postprocedural hypothyroidism (principal); I10 Essential (primary) hypertension; L29.9 Pruritus, unspecified; N95.2 Postmenopausal atrophic vaginitis
CPT/HCPCS: 36415; 80053; 84443; 84550; 85025

== ENCOUNTER 2023-09-28 14:32 | Emergency (ER) | payer BC, SELFPAY ==
[2022-02-20 18:38] VITALS: BMI 26.4
[2023-09-28] VITALS (21 sets, daily range): BP systolic 133–206; BP diastolic 58–103; PULSE 69–80; RESP 15–26; TEMP 36.8; O2SAT 93–100; BMI 25.2
--- NOTE | 2023-09-28 14:40 | DI.RAD.S_ITS ---
PROCEDURE: XR SHOULDER RT MIN 2V INDICATIONS: fall, pain, disability TECHNIQUE: 2 views of the shoulder were acquired. COMPARISON: None. FINDINGS: Bones: Right humerus is anteriorly dislocated. No suspicious bony lesions. Visualized ribs appear intact. Soft tissues: No suspicious soft tissue calcifications. IMPRESSION: Right shoulder anterior dislocation. Dictated by: Mar Cooper MD, PhD on 09/28/2023 at 15:12 Approved by: Mar Cooper MD, PhD on 09/28/2023 at 15:13
--- NOTE | 2023-09-28 14:58 | ED.FALL ---
HPI - Fall General Chief Complaint: Fall Stated Complaint: fell hurt right shoulder/arm Time Seen by Provider: 09/28/23 14:50 Source: patient and other Mode of arrival: Wheelchair History of Present Illness HPI Narrative: 83-year-old female with PMH of giant cell arteritis, hypertension, prediabetes, Coppola's esophagus, hiatal hernia Related Data Home Medications Medication Instructions Recorded Confirmed aspirin 81 mg tablet,delayed 81 mg PO BEDTIME 03/01/18 04/28/23 release (Adult Low Dose Aspirin) cholecalciferol (vitamin D3) 25 1,000 unit PO DAILY 03/01/18 04/28/23 mcg (1,000 unit) capsule krill oil 500 mg capsule 500 mg PO DAILY 03/01/18 04/28/23 [id number] T7-U6-X-mag--zinc 1 tab PO Q OTHER DAY 10/01/20 04/28/23 Previous Rx's Medication Instructions Recorded bupropion HCl 150 mg 24 hr tablet, 150 mg PO QAM #90 tabs 08/11/23 extended release lisinopril 10 mg tablet See Rx Instructions .Route 08/11/23 .COMPLEX #90 tabs metoprolol tartrate 25 mg tablet See Rx Instructions .Route 08/11/23 .COMPLEX #90 tabs omeprazole 40 mg capsule,delayed 40 mg PO DAILY #90 caps 08/11/23 release ospemifene 60 mg tablet (Osphena) 60 mg PO DAILY #90 tabs 09/09/23 levothyroxine 112 mcg tablet 112 mcg PO DAILY #90 tabs 09/28/23 Allergies Allergy/AdvReac Type Severity Reaction Status Date / Time shellfish derived Allergy Severe MUSSELS - Verified 09/28/23 14:35 ANAPHYLAXIS amoxicillin Allergy Mild RASH, Verified 09/28/23 14:35 DIARRHEA nitrofurantoin AdvReac Severe diarrhea,vomiting, Verified 09/28/23 14:35 rectal bleeding Patient History Medical History (Updated 08/11/23 @ 16:39 by Kelsey Pham DO) Acute colitis 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) Graves' disease Coppola's syndrome Congenital stricture of urethra Precancerous skin lesion (~2006) Giant cell arteritis Shoulder pain (2014) Cataract (2015) Colon polyps Hypertension Hypothyroidism Hayfever Tinnitus (2009) Anxiety (2013) Depression (2013) Surgical History Hx of cystoscopy (03/24/16) History of partial hysterectomy (1989) Anesthesia Hx of thyroid irradiation (1989) History of section (1969) History of cataract surgery (2014) History of abdominoplasty (1981) History of ureter repair (2013) H/O hysterectomy for benign disease (1994) History of cholecystectomy History of tonsillectomy (1945) History of bilateral tubal ligation (1969) Status post tubal ligation Family History Brother Heart disease Brother Emphysema of lung Family/Other Influenza Father Heart attack Grandmother Esophageal cancer Mother Esophageal cancer Grandfather Heart attack Sister Pancreatic cancer Unknown Heart disease Smoker Grandfather No problems noted. Grandmother No problems noted. Social History marital status: household members: spouse occupational status: previously employed and other (Retired from the [employer]) Smoking Status: Never smoker alcohol intake: current (2 drinks daily ) substance use type: does not use Smoking Status: Never smoker alcohol intake frequency: 0-2 drinks per day Substance Use Type: does not use Exam Initial Vital Signs Initial Vital Signs: Vital Signs Temperature 98.3 F 09/28/23 14:35 Pulse Rate 80 09/28/23 14:35 Respiratory Rate 18 09/28/23 14:35 Blood Pressure 174/77 H 09/28/23 14:35 Pulse Oximetry 96 09/28/23 14:35 Oxygen Delivery Method Room Air 09/28/23 14:35 Course Orders Ordered: ED Orders 09/28/23 14:40 XR shoulder RT min 2V Stat Vital Signs Vital signs: Vital Signs - 8 hr 09/28/23 14:35 Temperature 98.3 F Pulse Rate 80 Respiratory Rate 18 Blood Pressure 174/77 H Pulse Oximetry 96 Oxygen Delivery Method Room Air MDM - Fall Differential Diagnosis Differential diagnosis: Likely dislocation of shoulder region MDM Narrative Medical decision making narrative: Concern for differential diagnosis of Discharge Plan Departure Prescriptions: No Action Osphena 60 mg tablet 60 mg PO DAILY Qty: 90 3RF Rx Instructions: must administer with food, preferably a high-fat meal levothyroxine 112 mcg tablet 112 mcg PO DAILY Qty: 90 1RF krill oil 500 mg capsule 500 mg PO DAILY cholecalciferol (vitamin D3) 1,000 unit capsule 1,000 unit PO DAILY aspirin [Adult Low Dose Aspirin] 81 mg tablet,delayed release (DR/EC) 81 mg PO BEDTIME bupropion HCl 150 mg tablet extended release 24 hr 150 mg PO QAM Qty: 90 1RF lisinopril 10 mg tablet See Rx Instructions .ROUTE .COMPLEX Qty: 90 1RF Dose Instruction: TAKE 1 TABLET BY MOUTH EVERY NIGHT AT BEDTIME Rx Instructions: TAKE 1 TABLET BY MOUTH EVERY NIGHT AT BEDTIME metoprolol tartrate 25 mg tablet See Rx Instructions .ROUTE .COMPLEX Qty: 90 1RF Dose Instruction: TAKE 1/2 TABLET BY MOUTH TWICE DAILY Rx Instructions: TAKE 1/2 TABLET BY MOUTH TWICE DAILY omeprazole 40 mg capsule,delayed release(DR/EC) 40 mg PO DAILY Qty: 90 1RF [id number] M2-O4-H-mag--zinc 1 tab PO Q OTHER DAY Referrals: Kelsey Pham DO [Primary Care Provider] -
[2023-09-28] MEDS: OXYCODONE/ACETAMINOPHEN 5/325 TABLET 1 TAB PO (15:17)
--- NOTE | 2023-09-28 16:04 | ED.FALL ---
HPI - Fall General Chief Complaint: Fall Stated Complaint: fell hurt right shoulder/arm Time Seen by Provider: 09/28/23 14:50 Source: patient and other Mode of arrival: Wheelchair History of Present Illness HPI Narrative: This is an 83-year-old female seen with a right shoulder injury. Historian is the patient. States she was walking her dog when she got pulled forward by the leash fell with her right shoulder against a post. Now has right shoulder pain. She has not anticoagulated, she did not hit her head. She does not have neck pain. Does not have paresthesias distally. Last oral intake was about 4 hours prior to being seen. Related Data Home Medications Medication Instructions Recorded Confirmed aspirin 81 mg tablet,delayed 81 mg PO BEDTIME 03/01/18 04/28/23 release (Adult Low Dose Aspirin) cholecalciferol (vitamin D3) 25 1,000 unit PO DAILY 03/01/18 04/28/23 mcg (1,000 unit) capsule krill oil 500 mg capsule 500 mg PO DAILY 03/01/18 04/28/23 [id number]--[id number] 1 tab PO Q OTHER DAY 10/01/20 04/28/23 Previous Rx's Medication Instructions Recorded bupropion HCl 150 mg 24 hr tablet, 150 mg PO QAM #90 tabs 08/11/23 extended release lisinopril 10 mg tablet See Rx Instructions .Route 08/11/23 .COMPLEX #90 tabs metoprolol tartrate 25 mg tablet See Rx Instructions .Route 08/11/23 .COMPLEX #90 tabs omeprazole 40 mg capsule,delayed 40 mg PO DAILY #90 caps 08/11/23 release ospemifene 60 mg tablet (Osphena) 60 mg PO DAILY #90 tabs 09/09/23 levothyroxine 112 mcg tablet 112 mcg PO DAILY #90 tabs 09/28/23 Allergies Allergy/AdvReac Type Severity Reaction Status Date / Time shellfish derived Allergy Severe MUSSELS - Verified 09/28/23 14:35 ANAPHYLAXIS amoxicillin Allergy Mild RASH, Verified 09/28/23 14:35 DIARRHEA nitrofurantoin AdvReac Severe diarrhea,vomiting, Verified 09/28/23 14:35 rectal bleeding Patient History Medical History (Updated 09/28/23 @ 18:31 by Jose Ralph MD) Acute colitis 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) Graves' disease Coppola's syndrome Congenital stricture of urethra Precancerous skin lesion (~2007) Giant cell arteritis Shoulder pain (2015) Cataract (2016) Colon polyps Hypertension Hypothyroidism Hayfever Tinnitus (2010) Anxiety (2014) Depression (2014) Surgical History Hx of cystoscopy (03/24/16) History of partial hysterectomy (1989) Anesthesia Hx of thyroid irradiation (1989) History of section (1969) History of cataract surgery (2014) History of abdominoplasty (1981) History of ureter repair (2013) H/O hysterectomy for benign disease (1994) History of cholecystectomy History of tonsillectomy (1945) History of bilateral tubal ligation (1969) Status post tubal ligation Family History Brother Heart disease Brother Emphysema of lung Family/Other Influenza Father Heart attack Grandmother Esophageal cancer Mother Esophageal cancer Grandfather Heart attack Sister Pancreatic cancer Unknown Heart disease Smoker Grandfather No problems noted. Grandmother No problems noted. Social History marital status: household members: spouse occupational status: previously employed and other (Retired from the [employer]) Smoking Status: Never smoker alcohol intake: current (2 drinks daily ) substance use type: does not use Smoking Status: Never smoker alcohol intake frequency: 0-2 drinks per day Substance Use Type: does not use Exam Initial Vital Signs Initial Vital Signs: Vital Signs Temperature 98.3 F 09/28/23 14:35 Pulse Rate 80 09/28/23 14:35 Respiratory Rate 18 09/28/23 14:35 Blood Pressure 174/77 H 09/28/23 14:35 Pulse Oximetry 96 09/28/23 14:35 Oxygen Delivery Method Room Air 09/28/23 14:35 Const General: in distress HENMT Head: normocephalic and atraumatic HENMT Other: Dentition is intact, Mallampati 3 Neck Neck: supple and No tender Resp Effort & Inspection: normal respiratory effort Auscultation: clear to auscultation bilaterally Cardio Other: Regular rhythm and rate with a soft systolic murmur Neuro General: patient alert, patient awake and patient oriented x3 Extrem Other: Right shoulder has a palpable deformity consistent with a dislocation. She has intact radial and ulnar pulses intact light touch sensation and motor function in the hand. Procedures Orthopedic Joint Reduction Joint #1: Time of procedure: 16:25 Time Out Performed: Yes Side: right Post-reduction neuro exam: intact Post-reduction vascular: intact Post Reduction X-Ray Obtained: Yes Post Reduction X-Ray Results: reduced Patient Tolerated Procedure: Well Additional Comments: Sling applied Procedural Sedation Time of procedure: 16:40 Presedation Evaluation: See physical exam ASA Class: II Time of Last PO Intake: 12:00 Fentanyl dose (mcg): 25 IV Propofol dose (mg): 60 Intraservice time/total sedation time (min): 15 ED Sedation Level: Moderate (Concious) Patient Tolerated Procedure: Well Interventions: Assist by BVM Course Orders Ordered: Discontinued Medications Fentanyl (Fentanyl 100 Mcg/2 Ml Inj) 25 mcg IV NOW ONE Stop: 09/28/23 16:06 Last Admin: 09/28/23 16:35 Dose: 25 mcg Documented By: FRITZ Ondansetron HCl (Ondansetron 4 Mg/2 Ml Inj) 4 mg IV NOW ONE Stop: 09/28/23 16:06 Last Admin: 09/28/23 16:30 Dose: 4 mg Documented By: FRITZ Oxycodone/Acetaminophen (Oxycodone/Acetaminophen 5/325 Tablet) 1 tab PO NOW ONE Stop: 09/28/23 15:12 Last Admin: 09/28/23 15:17 Dose: 1 tab Documented By: MATA Propofol (Propofol 200 Mg/20 Ml Vial) 60 mg 1 mg/kg (60 mg) IV NOW ONE Stop: 09/28/23 16:08 Last Admin: 09/28/23 16:48 Dose: 60 mg Documented By: FRITZ Vital Signs Vital signs: Vital Signs - 8 hr 09/28/23 14:35 09/28/23 15:37 09/28/23 16:00 Temperature 98.3 F Pulse Rate 80 76 76 Respiratory Rate 18 21 23 Blood Pressure 174/77 H Pulse Oximetry 96 97 98 Oxygen Delivery Method Room Air Oxygen Flow Rate 09/28/23 16:21 09/28/23 16:21 09/28/23 16:30 Temperature Pulse Rate 77 Respiratory Rate 21 Blood Pressure 206/88 H 199/92 H Pulse Oximetry 96 Oxygen Delivery Method Room Air Oxygen Flow Rate 09/28/23 16:30 09/28/23 16:49 09/28/23 16:49 Temperature Pulse Rate 74 76 Respiratory Rate 17 Blood Pressure 185/86 H Pulse Oximetry 93 95 Oxygen Delivery Method Room Air Nasal Cannula Oxygen Flow Rate 2 09/28/23 16:50 09/28/23 16:50 09/28/23 16:50 Temperature Pulse Rate 75 Respiratory Rate Blood Pressure 173/85 H Pulse Oximetry 95 93 Oxygen Delivery Method Nasal Cannula Oxygen Flow Rate 4 09/28/23 16:56 09/28/23 16:56 09/28/23 17:00 Temperature Pulse Rate 74 71 Respiratory Rate 26 H 24 Blood Pressure 133/58 L Pulse Oximetry 100 100 Oxygen Delivery Method Room Air Room Air Oxygen Flow Rate MDM - Fall Imaging Data Right shoulder: My Impression: Anterior dislocation right shoulder Post reduction right shoulder: My Impression: Reduced dislocation right shoulder MDM Narrative Medical decision making narrative: A 3-year-old female with a ground level fall and right shoulder dislocation. No head injury. No other injury identified on comprehensive examined the patient. Shoulder dislocation was reduced under procedural sedation. Discharged home will follow up with Orthopedics Discharge Plan Departure Patient Disposition: Home Clinical Impression: Anterior shoulder dislocation Qualifiers: Encounter type: initial encounter Laterality: right Qualified Code(s): S43.014A - Anterior dislocation of right humerus, initial encounter Activity Restrictions/Additional Instructions: Follow up with [facility] at [phone] for follow-up. Use the provided sling. We have ordered home health. Continue previous home medications. Acetaminophen (tylenol) should be dosed at 650 mg every 4 hours or 1000mg every 6 hours. It can be given as needed but is more effective if given on a scheduled basis. Total daily dose should not exceed 4,000mg. If you were prescribed norco (hydrocodone/apap) or percocet (oxycodone/apap) each tablet of these contains 325 mg of acetaminophen and should be included when calculating daily dose You can also use ibuprofen, Ibuprofen (motrin or advil) should be dosed at 600mg (3 non-prescription tablets) every 6 hours. Taking this on a scheduled basis is more effective. It is a good idea to take this with food. Use this with caution if you have a history of bleeding ulcers or renal disease. Go home and rest tonight as we gave sedating medications in the emergency department. Do not drive tonight Ice may also be helpful for pain, if you are using an ice pack, keep it from direct contact with your skin Prescriptions: No Action Osphena 60 mg tablet 60 mg PO DAILY Qty: 90 3RF Rx Instructions: must administer with food, preferably a high-fat meal levothyroxine 112 mcg tablet 112 mcg PO DAILY Qty: 90 1RF krill oil 500 mg capsule 500 mg PO DAILY cholecalciferol (vitamin D3) 1,000 unit capsule 1,000 unit PO DAILY aspirin [Adult Low Dose Aspirin] 81 mg tablet,delayed release (DR/EC) 81 mg PO BEDTIME bupropion HCl 150 mg tablet extended release 24 hr 150 mg PO QAM Qty: 90 1RF lisinopril 10 mg tablet See Rx Instructions .ROUTE .COMPLEX Qty: 90 1RF Dose Instruction: TAKE 1 TABLET BY MOUTH EVERY NIGHT AT BEDTIME Rx Instructions: TAKE 1 TABLET BY MOUTH EVERY NIGHT AT BEDTIME metoprolol tartrate 25 mg tablet See Rx Instructions .ROUTE .COMPLEX Qty: 90 1RF Dose Instruction: TAKE 1/2 TABLET BY MOUTH TWICE DAILY Rx Instructions: TAKE 1/2 TABLET BY MOUTH TWICE DAILY omeprazole 40 mg capsule,delayed release(DR/EC) 40 mg PO DAILY Qty: 90 1RF [id number]-mag--zinc 1 tab PO Q OTHER DAY Referrals: Kelsey Pham DO [Primary Care Provider] - Stand Alone Forms: Patient Portal/API
[2023-09-28] MEDS: ONDANSETRON 4 MG/2 ML INJ IV (16:30)
[2023-09-28] MEDS: fentaNYL 100 MCG/2 ML INJ 25 MCG IV (16:35)
[2023-09-28] MEDS: propofoL 200 MG/20 ML VIAL 60 MG IV (16:48)
--- NOTE | 2023-09-28 16:56 | PC.NURSE ---
Pt was assisted by RT with jaw thrust while on 4L NC. Pt became apneic after shoulder reduction and pt was bagged for 2 minutes with BVM by RT. O2 remained above 90%. Pt awoke quickly when spontaneous breathing returned and oxygen was turned off. Patient quickly became alert and oriented, breathing on her own and asks Will I have any pain when you start doing this?. Pt was notified that the procedure is complete pending Xray. Pt smiles and states she is feeling much better.
--- NOTE | 2023-09-28 16:57 | DI.RAD.S_ITS ---
PROCEDURE: XR SHOULDER RT MIN 2V INDICATIONS: shoulder reduction TECHNIQUE: To views of the shoulder were acquired. COMPARISON: [facility], CR, XR SHOULDER RT MIN 2V, 09/28/2023, 14:49. FINDINGS: Bones: Right anterior inferior dislocation is reduced. No suspicious bony lesions. Question Hill-Sachs deformity of humeral head. The inferior glenoid appears irregular. Visualized ribs appear intact. Soft tissues: No suspicious soft tissue calcifications. IMPRESSION: Complete reduction of right shoulder dislocation. Dictated by: Cheryl Diaz M.D. on 09/28/2023 at 17:23 Approved by: Cheryl Diaz M.D. on 09/28/2023 at 17:25
--- NOTE | 2023-09-28 17:48 | CM.SWNOTE ---
ED TELE MARKETING EXECUTIVE Note TELE MARKETING EXECUTIVE receives consult due to concern for patient's recent GLF and should dislocation. Patient presents with friend who is concerned for patient's home environment as patient is primary caregiver for spouse with dx of Dementia. It is reported that patient fell on the ice when she was walking her dog. Patient's PCP is Dr. Kelsey Pham, patient has [facility] part A and Federal [facility] insurance. rotary veneer machine operator enter room to meet with patient, present in room is patient and patient's friend. Patient presents A/Ox4. Patient endorses she resides at home with spouse in [place]. Patient endorses she ambulates independently at baseline and drives her vehicle. Patient endorses she is the primary caregiver for spouse with Dementia and she provides him with verbal reminders to complete ADLs and take medication. Upon entering room patient and friend are on the phone with patient's son informing him of patient's fall and presentation to the ED. It is reported that patient has 3 sons that live in [place] and it is unknown if they can visit patient at this time due to their work schedule. Patient has friend who can check on patient regularly. Patient's friend endorses concern and advocates for HH for patient. TELE MARKETING EXECUTIVE discusses HH and patient provides no preference for HH agency. TELE MARKETING EXECUTIVE calls [facility], it is reported that they can start services as soon as Thursday. TELE MARKETING EXECUTIVE calls [facility] it is reported that they can start services as soon as Thursday if RN is referred. TELE MARKETING EXECUTIVE calls [facility] it is reported that they have availability as soon as Thursday. TELE MARKETING EXECUTIVE fills out signed F2F, and faxes F2F, order and clinicals to [facility] for referral for PT, OT, HH aide and TELE MARKETING EXECUTIVE. TELE MARKETING EXECUTIVE reviews this with patient who indicates agreement and understanding. TELE MARKETING EXECUTIVE provides patient with [facility] brochure and Senior resource guide. Patient endorses she feels confident in her ability to d/c to home. TELE MARKETING EXECUTIVE calls [facility] regarding referral and leaves VM. Plan: patient to d/c to home with friend upon medical clearance, [facility] to f/u with patient this week. ROSALES Ochoa
== END 2023-09-28 19:05 | disposition home or self-care (01) ==
PROVIDERS: Emergency Provider Emergency Medicine; Family Provider Family Medicine; PCP Family Medicine
DX: S43.014A Anterior dislocation of right humerus, initial encounter (principal); W18.30XA Fall on same level, unspecified, initial encounter; Z79.899 Other long term (current) drug therapy
CPT/HCPCS: 23650; 73030; 96374; 96375; 99152; 99284; 99285; J2405; J2704; J3010

== ENCOUNTER → 2024-02-15 14:17 | Outpatient (CLI) | payer BC, SELFPAY ==
[2022-02-20 18:38] VITALS: BMI 26.4
--- NOTE | 2024-02-15 14:18 | DI.MG.S_ITS ---
BILATERAL DIGITAL SCREENING MAMMOGRAM 3D/2D WITH CAD: 02/15/2024 CLINICAL: Routine screening. Comparison is made to exams dated: 05/30/2021 mammogram, 05/04/2020 mammogram, 03/02/2019 mammogram, and 12/26/2017 mammogram - . Both breasts are almost entirely fatty (category a/<25% glandular tissue). Current study was also evaluated with a Computer Aided Detection (CAD) system. There are benign calcifications in both breasts. No significant masses, calcifications, or other findings are seen in either breast. There has been no significant interval change. IMPRESSION: BENIGN There is no mammographic evidence of malignancy. A 1 year screening mammogram is recommended. Based on the Tyrer Cuzick model (a risk assessment model) the patient's lifetime risk is 0.2% and her 10 year risk is 0.0%. According to the ACR, ACS, and NCCN guidelines, an annual breast MRI exam along with mammogram is recommended if the patient's lifetime risk is 20% or greater. This exam was interpreted at Station ID: [id number]. NOTE: For mammograms, a report in lay terms will be sent to the patient. Approximately 15% of breast malignancies will not be visualized mammographically. In the management of a palpable breast mass, a negative mammogram must not discourage biopsy of a clinically suspicious lesion. Electronically Signed By: Maira mackey/dulce:02/15/2024 16:29:53 letter sent: Normal Exam ACR BI-RADS Category 2: Benign Finding(s) [id number]
== END ==
PROVIDERS: Family Provider Family Medicine; PCP Family Medicine; Referring Provider Family Medicine; Visit Provider Family Medicine
DX: Z12.31 Encounter for screening mammogram for malignant neoplasm of breast (principal); R92.313 Mammographic fatty tissue density, bilateral breasts
CPT/HCPCS: 77063; 77067

== ENCOUNTER → 2024-03-22 15:58 | Outpatient (CLI) | payer BC, SELFPAY ==
[2022-02-20 18:38] VITALS: BMI 26.4
== END ==
PROVIDERS: Family Provider Family Medicine; PCP Family Medicine; Visit Provider Nurse Practitioner Family
DX: N39.0 Urinary tract infection, site not specified (principal)
CPT/HCPCS: 87077; 87086; 87147

== ENCOUNTER → 2024-04-01 11:41 | Outpatient (CLI) | payer BC, SELFPAY ==
[2022-02-20 18:38] VITALS: BMI 26.4
[2024-04-01 16:01] LABS: BUN Creatinine Ratio 7.4 (6-22); Blood Urea Nitrogen 4 mg/dL (7-17); Calcium 9.2 mg/dL (8.4-10.2); Carbon Dioxide 27 mmol/L (22-32); Chloride 93 mmol/L (98-107); Estimated Glomerular Filt Rate > 60 mL/min (>60); Glucose 118 mg/dL (80-110); HEMOLYSIS < 15 (0-50); Potassium 5.1 mmol/L (3.4-5.1); Sodium 126 mmol/L (137-145)
[2024-04-01 16:28] LABS: Thyroid Stimulating Hormone 0.763 uIU/mL (0.47-4.68)
[2024-04-01 16:43] LABS: Creatinine Urine Random 22.37 mg/dL
[2024-04-01 17:30] LABS: Microalbumin Urine Random > 114.0 mg/dL (0-1.6)
[2024-04-01 20:05] LABS: Hemoglobin A1C% w Est Avg Glu 5.5 % (4.0-6.0)
== END ==
PROVIDERS: Family Provider Family Medicine; PCP Family Medicine; Referring Provider Family Medicine; Visit Provider Family Medicine
DX: R30.0 Dysuria (principal); I10 Essential (primary) hypertension; E89.0 Postprocedural hypothyroidism; R73.03 Prediabetes
CPT/HCPCS: 36415; 80048; 82043; 82570; 83036; 84443

== ENCOUNTER → 2024-04-05 13:37 | Outpatient (CLI) | payer BC, SELFPAY ==
[2022-02-20 18:38] VITALS: BMI 26.4
[2024-04-05 14:56] LABS: Appearance Urine UA CLEAR; Bilirubin Urine UA NEGATIVE (NEGATIVE); Color Urine UA YELLOW; Glucose Urine UA NEGATIVE (Negative); Ketones Urine UA NEGATIVE (NEGATIVE); Leukocyte Esterase Urine UA 3+ (NEGATIVE); Nitrite Urine UA NEGATIVE (Negative); Occult Blood Urine UA 2+ (Negative); Protein Urine UA TRACE (Negative); Specific Gravity Urine UA <=1.005 (1.000-1.035); Urobilinogen Urine UA 0.2 E.U./dL (0.2)
[2024-04-05 14:57] LABS: pH Urine UA 6.5 (4.5-8.0)
[2024-04-05 14:58] LABS: Bacteria Urine Few (2-10); Culture Indicated Urine Specimen Cultured; RBC Urine >100/HPF (0-5/HPF); Squamous Epithelial Cell Urine 0-1 /HPF (0-5/HPF); Urine Volume 10mL (spun); WBC Urine >100/HPF (0-5/HPF)
== END ==
PROVIDERS: Family Provider Family Medicine; PCP Family Medicine; Referring Provider Family Medicine; Visit Provider Family Medicine
DX: R30.0 Dysuria (principal)
CPT/HCPCS: 81001; 87077; 87086; 87147

== ENCOUNTER → 2025-02-03 07:56 | Outpatient (CLI) | payer BC, SELFPAY ==
[2024-10-03 08:59] VITALS: BMI 26.4
[2025-02-03 08:31] LABS: Hemoglobin A1C% w Est Avg Glu 4.9 % (4.0-6.0)
[2025-02-03 09:07] LABS: Alanine Aminotransferase 27 IU/L (<35); Albumin Globulin Ratio 1.2 (1.0-2.8); Alkaline Phosphatase 85 U/L (38-126); Aspartate Aminotransferase 40 IU/L (14-36); BUN Creatinine Ratio 12.7 (6-22); Bilirubin Total 0.6 mg/dL (0.2-1.3); Blood Urea Nitrogen 8 mg/dL (7-17); Calcium 9.5 mg/dL (8.4-10.2); Carbon Dioxide 31 mmol/L (22-32); Chloride 94 mmol/L (98-107); Estimated Glomerular Filt Rate > 60 mL/min (>60); Globulin 3.3 g/dL (1.7-4.1); Glucose 117 mg/dL (70-99); HEMOLYSIS < 15 (0-50); Potassium 4.7 mmol/L (3.4-5.1); Sodium 130 mmol/L (137-145); Total Protein 7.3 g/dL (6.3-8.2)
[2025-02-03 09:34] LABS: TSH w/ Reflex to FT4 0.54 uIU/mL (0.47-4.68)
== END ==
PROVIDERS: Family Provider Family Medicine; PCP Family Medicine; Referring Provider Family Medicine; Visit Provider Family Medicine
DX: R80.9 Proteinuria, unspecified (principal); E89.0 Postprocedural hypothyroidism; I10 Essential (primary) hypertension
CPT/HCPCS: 36415; 80053; 83036; 84443

== ENCOUNTER 2025-04-25 12:25 | Emergency (ER) | payer BC, SELFPAY ==
[2024-10-03 08:59] VITALS: BMI 26.4
[2025-04-25] VITALS (14 sets, daily range): BP systolic 129–150; BP diastolic 60–70; PULSE 79–95; RESP 17; TEMP 36.6; O2SAT 93–99
--- NOTE | 2025-04-25 12:39 | DI.RAD.S_ITS ---
PROCEDURE: XR CHEST 1V INDICATIONS: Chest Pain TECHNIQUE: One view of the chest was acquired. COMPARISON: [facility], , CHEST 2 VIEW, 04/29/2016, 11:02. FINDINGS: Surgical changes and devices: None. Lungs and pleura: Lungs are clear. No pleural effusions or pneumothorax. Mediastinum: Mediastinal contours appear normal. Heart size is normal. Bones and chest wall: No suspicious bony lesions. Overlying soft tissues appear unremarkable. IMPRESSION: No acute cardiopulmonary pathology. Dictated by: Mikal Guerrero M.D. on 04/25/2025 at 13:10 Approved by: Mikal Guerrero M.D. on 04/25/2025 at 13:10
--- NOTE | 2025-04-25 12:40 | EKG_ITS ---
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
[2025-04-25 12:50] LABS: Add Manual Diff / Slide Review NO; Hematocrit 37.4 % (36-46); Hemoglobin 13.0 g/dL (12.0-16.0); Lymphocytes Absolute Auto 1000 /uL (1100-4500); Mean Corpuscular HGB Conc 34.8 % (30-36); Mean Corpuscular Hemoglobin 34.7 PG (26-34); Mean Corpuscular Volume 99.8 fL (80-100); Platelet Count 439 X10^3/uL (150-400)
[2025-04-25 12:51] LABS: INR 1.0 (0.9-1.3); Prothrombin Time 10.9 SECONDS (9.4-12.5)
[2025-04-25 12:54] LABS: PTT Partial Thromboplastin Tim 28 SECONDS (25.1-36.5)
[2025-04-25 12:59] LABS: Alanine Aminotransferase 28 IU/L (<35); Albumin 3.9 g/dL (3.5-5.0); Albumin Globulin Ratio 1.1 (1.0-2.8); Alkaline Phosphatase 100 U/L (38-126); Blood Urea Nitrogen 11 mg/dL (7-17); Calcium 9.3 mg/dL (8.4-10.2); Carbon Dioxide 27 mmol/L (22-32); Chloride 89 mmol/L (98-107); Creatine Kinase 38 U/L (30-135); Estimated Glomerular Filt Rate > 60 mL/min (>60); Globulin 3.7 g/dL (1.7-4.1); Glucose 143 mg/dL (70-99); HEMOLYSIS < 15 (0-50); Lipase 171 U/L (23-300); Magnesium 1.5 mg/dL (1.6-2.3); Potassium 4.3 mmol/L (3.4-5.1); Sodium 124 mmol/L (137-145); Total Protein 7.6 g/dL (6.3-8.2)
--- NOTE | 2025-04-25 13:07 | ED.DIZZY ---
HPI - Dizziness General Chief Complaint: Syncope Stated Complaint: lethargy Time Seen by Provider: 04/25/25 12:26 Source: patient and EMS Mode of arrival: EMS History of Present Illness HPI Narrative: 85-year-old female history of hypertension Barretts esophagus postablative hypothyroidism was going to the walk-in clinic today since she was having abdominal pain and urinary symptoms became lightheaded dizzy hot and flushed and had a near syncopal episode brought in here for further evaluation. She denies chest pain, shortness breath, fever, chills, back pain, nausea, vomiting, diarrhea, or constipation. In fact she feels much better now after a L fluids have been has been given. Other than what is stated 14 point review of system is negative. Related Data Home Medications ?Medication ?Instructions ?Recorded ?Confirmed aspirin 81 mg tablet,delayed 81 mg PO BEDTIME 03/01/18 02/27/25 release (Adult Low Dose Aspirin) triamcinolone acetonide 0.1 % 1 applic topical 04/01/24 02/27/25 topical cream Previous Rx's ?Medication ?Instructions ?Recorded bupropion HCl 300 mg 24 hr tablet, 300 mg PO QAM #90 tabs 04/05/24 extended release levothyroxine 112 mcg tablet 112 mcg PO DAILY #90 tabs 06/27/24 omeprazole 40 mg capsule,delayed 40 mg PO DAILY #90 caps 10/19/24 release lisinopril 10 mg tablet 10 mg PO ONCE PM #90 tabs 11/17/24 metoprolol tartrate 25 mg tablet 12.5 mg (1/2 x 25 mg) PO BID #90 11/17/24 tabs ospemifene 60 mg tablet (Osphena) 60 mg PO DAILY #90 tabs 12/02/24 sulfamethoxazole 800 1 tab PO Q12H #20 tabs 04/25/25 mg-trimethoprim 160 mg tablet (Bactrim DS) Allergies Allergy/AdvReac Type Severity Reaction Status Date / Time shellfish derived Allergy Severe MUSSELS - Verified 04/25/25 12:37 ANAPHYLAXIS amoxicillin Allergy Mild RASH, Verified 04/25/25 12:37 DIARRHEA nitrofurantoin AdvReac Severe diarrhea,vomiting, Verified 04/25/25 12:37 rectal bleeding Review of Systems Review of Systems ROS Unobtainable: All systems reviewed & are unremarkable except as noted in HPI and below Patient History Medical History (Updated 04/25/25 @ 16:03 by George Venegas DO) History of giant cell arteritis (~2018) Acute colitis 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) Graves' disease Coppola's syndrome Congenital stricture of urethra Precancerous skin lesion (~2006) Giant cell arteritis Shoulder pain (2015) Cataract (2016) Colon polyps Hypertension Hypothyroidism Hayfever Tinnitus (2009) Anxiety (2014) Depression (2014) Surgical History Hx of cystoscopy (03/24/16) History of partial hysterectomy (1989) Anesthesia Hx of thyroid irradiation (1989) History of section (1969) History of cataract surgery (2014) History of abdominoplasty (1981) History of ureter repair (2013) H/O hysterectomy for benign disease (1994) History of cholecystectomy History of tonsillectomy (1945) History of bilateral tubal ligation (1969) Status post tubal ligation Family History Brother Heart disease Brother Emphysema of lung Family/Other Influenza Father Heart attack Grandmother Esophageal cancer Mother Esophageal cancer Grandfather Heart attack Sister Pancreatic cancer Unknown Heart disease Smoker Grandfather No problems noted. Grandmother No problems noted. Social History marital status: household members: spouse occupational status: previously employed and other Smoking Status: Never smoker alcohol intake: current substance use type: does not use Smoking Status: Never smoker alcohol intake frequency: 0-2 drinks per day Exam Narrative Exam Narrative: GENERAL: [85] year old patient appears stated age. Well-developed patient, in mild distress. HEAD: Atraumatic. Normocephalic. EYES: Pupils equal round and reactive. Extraocular motions intact. No scleral icterus. No injection or drainage. ENT: Nose without bleeding, purulent drainage. Throat without erythema, tonsillar hypertrophy or exudate. Airway patent. NECK: Trachea midline. Non tender CARDIOVASCULAR: Regular rate and rhythm without murmurs, gallops, or rubs. RESPIRATORY: Clear to auscultation. Breath sounds equal bilaterally. No wheezes, rales, or rhonchi. GASTROINTESTINAL: Abdomen soft, non-tender, nondistended. EXTREMITIES: No edema or joint tenderness. BACK: Nontender without deformity or crepitance. No flank tenderness. NEURO: AOx3. SKIN: No rash or erythema of visible areas Initial Vital Signs Initial Vital Signs: Vital Signs Temperature 98 F 04/25/25 12:37 Pulse Rate 80 04/25/25 12:37 Respiratory Rate 17 04/25/25 12:37 Blood Pressure 150/67 H 04/25/25 12:37 Pulse Oximetry 99 04/25/25 12:37 Oxygen Delivery Method Room Air 04/25/25 12:37 Course Orders Ordered: ED Orders 04/25/25 12:30 Complete Blood Count AUTO DIFF Stat Comprehensive Metabolic Panel Stat Lipase Stat Magnesium Stat NT-proBNP (BNP-Adult 18+) Stat PTT Partial Thromboplastin Imtiaz Stat Prothrombin Time INR Stat Troponin & CK Cardiac Panel Stat 04/25/25 12:39 XR chest 1V Stat EKG-12 Lead Stat 04/25/25 13:07 CT angio head and neck Stat CT head/brain wo con Stat 04/25/25 13:10 CT abdomen pelvis w con Stat 04/25/25 13:49 Urinalysis and Microscopic Stat Urine Culture Stat Vital Signs Vital signs: Vital Signs - 8 hr 04/25/25 12:37 Temperature 98 F Pulse Rate 80 Respiratory Rate 17 Blood Pressure 150/67 H Pulse Oximetry 99 Oxygen Delivery Method Room Air MDM - Dizziness Lab Data 04/25/25 12:30 04/25/25 12:30 Labs: Lab Results 04/25/25 04/25/25 Range/Units 12:30 13:49 WBC 7.9 (4.5-11.0) X10^3/uL RBC 3.75 L (4.0-5.2) X10^6/uL Hgb 13.0 (12.0-16.0) g/dL Hct 37.4 (36-46) % MCV 99.8 (80-100) fL MCH 34.7 H (26-34) PG MCHC 34.8 (30-36) % RDW 13.4 (11.6-14.8) % Plt Count 439 H (150-400) X10^3/uL Neut % (Auto) 67.1 (50-75) % Lymph % (Auto) 12.3 L (25-40) % [place] % (Auto) 19.1 H (3-14) % Eos % (Auto) 1.0 L (2-4) % Baso % (Auto) 0.5 (0-2) % Neut # (Auto) 5300 (7158-7882) /uL Lymph # (Auto) 1000 L (2625-1725) /uL [place] # (Auto) 1500 H (0-900) /uL Eos # (Auto) 100 (0-450) /uL Baso # (Auto) 0 (0-100) /uL PT 10.9 (9.4-12.5) SECONDS INR 1.0 (0.9-1.3) APTT 28 (25.1-36.5) SECONDS Sodium 124 L (137-145) mmol/L Potassium 4.3 (3.4-5.1) mmol/L Chloride 89 L (98-107) mmol/L Carbon Dioxide 27 (22-32) mmol/L BUN 11 (7-17) mg/dL Creatinine 0.70 (0.52-1.04) mg/dL Estimated GFR > 60 (>60) mL/min BUN/Creatinine Ratio 15.7 (6-22) Glucose 143 H (70-99) mg/dL Calcium 9.3 (8.4-10.2) mg/dL Magnesium 1.5 L (1.6-2.3) mg/dL Total Bilirubin 0.7 (0.2-1.3) mg/dL AST 39 H (14-36) IU/L ALT 28 (<35) IU/L Alkaline Phosphatase 100 (38-126) U/L Total Creatine Kinase 38 (30-135) U/L Troponin I < 0.012 (0.01-0.034) ng/mL NT-Pro-B Natriuret Pep 415 (<450) pg/mL Total Protein 7.6 (6.3-8.2) g/dL Albumin 3.9 (3.5-5.0) g/dL Globulin 3.7 (1.7-4.1) g/dL Albumin/Globulin Ratio 1.1 (1.0-2.8) Lipase 171 (23-300) U/L Urine Color Yellow Urine Appearance Cloudy Urine pH 6.0 (4.5-8.0) Ur Specific [place] 1.020 (1.000-1.035) Urine Protein 2+ H (Negative) Urine Glucose (UA) Negative (Negative) g/dL Urine Ketones Trace H (NEGATIVE) Urine Occult Blood 2+ H (Negative) Urine Nitrate Negative (Negative) Urine Bilirubin Negative (NEGATIVE) Urine Urobilinogen 1.0 (0.2) E.U./dL Ur Leukocyte Esterase 2+ H (NEGATIVE) Urine RBC 10-30/hpf H (0-5/HPF) Urine WBC 30-100/hpf H (0-5/HPF) Ur Squamous Epith Cells 0-1 /hpf (0-5/HPF) Urine Bacteria Many (>30) H (None) Ur Culture Indicated? Specimen cultured Vol Urine Centrifuged 10ml (spun) Imaging Data CT scan - head: Radiologist's Impression: [address] [address] [address] Scan Report Signed Patient: Kimberly Tony MR#: [id number] : 1940 Acct:[id number] Age/Sex: 85 / F Date of Service: 04/25/25 Loc: ED Accession Number: [id number] Procedure: CT head/brain wo con Ordering Provider: George Venegas D.O. PROCEDURE: CT HEAD/BRAIN WO CON INDICATIONS: dizziness syncope TECHNIQUE: Noncontrast 4.5 mm thick angled axial sections acquired from the foramen magnum to the vertex, with coronal and sagittal reformats. For radiation dose reduction, the following was used: automated exposure control, adjustment of mA and/or kV according to patient size. COMPARISON: [facility], CT, CT HEAD/BRAIN WO CON, 06/28/2022, 14:30. FINDINGS: Image quality: Diagnostic. CSF spaces: Basal cisterns are patent. No extra-axial fluid collections. The ventricles are symmetric in size and shape. Brain: No intracranial bleeds or mass effect. There is cerebral volume loss, with resultant ventricular and sulcal prominence. There are periventricular and deep white matter chronic small vessel ischemic changes. There is intracranial internal carotid artery atherosclerosis. Skull and face: Calvarium and visualized facial bones appear intact, without suspicious lesions. Sinuses: Visualized sinuses and mastoids are clear. IMPRESSION: No acute intracranial pathology. CTA - brain/neck: Radiologist's Impression: [address] [address] [address] Scan Report Signed Patient: Kimberly Tony MR#: [id number] : 1940 Acct:[id number] Age/Sex: 85 / F Date of Service: 04/25/25 Loc: ED Accession Number: [id number] Procedure: CT angio head and neck Ordering Provider: George Venegas D.O. PROCEDURE: CT ANGIO HEAD AND NECK INDICATIONS: dizziness syncope TECHNIQUE: After the administration of intravenous contrast, 1 mm thick sections acquired from the aortic arch through the [place]. 3-dimensional iwgpbbz-otqlwthrj-kcgbmckhug (MIP) and/or volume rendering reformats were acquired of the central intracranial vasculature and neck separately. For radiation dose reduction, the following was used: automated exposure control, adjustment of mA and/or kV according to patient size. COMPARISON: None. FINDINGS: Image quality: Diagnostic. Cerebral CT Angiogram: Internal carotid arteries: No acute findings. Intracranial ICA are patent with no significant stenosis. No occlusion. No aneurysm. Anterior cerebral arteries: Unremarkable. No significant stenosis. No occlusion. No aneurysm. Middle cerebral arteries: Unremarkable. No significant stenosis. No occlusion. No aneurysm. Posterior cerebral arteries: Unremarkable. No significant stenosis. No occlusion. No aneurysm. Basilar artery: Unremarkable. No significant stenosis. No occlusion. No aneurysm. Vertebral arteries: Unremarkable as visualized. Dural venous sinuses: Unremarkable given phase of enhancement. Other: Arterial phase appearance of the brain parenchyma is unremarkable. Neck CT Angiogram: Internal carotid arteries: Unremarkable. No significant stenosis. No dissection or occlusion. Common carotid arteries: Unremarkable. No significant stenosis. No dissection or occlusion. External carotid arteries: Unremarkable. No occlusion. Vertebral arteries: High-grade stenosis involving origin of right vertebral artery is seen. No hemodynamically significant stenosis is seen in left vertebral artery dominant left vertebral artery. No dissection or occlusion. Aortic Arch and Mediastinum: Partially visualized aortic arch unremarkable without evidence of aneurysm. Origins of rest of the great vessels unremarkable. Other: Arterial phase soft tissues of the neck and chest are unremarkable. IMPRESSION: 1. No significant intracranial arterial abnormality is seen. 2. High-grade up to 90% stenosis involving origin of right vertebral artery. No hemodynamically significant stenosis is seen in rest of the neck arteries. Any quantitative measurements of stenosis were performed using NASCET criteria. CT scan - abdomen/pelvis: Radiologist's Impression: [address] [address] [address] Scan Report Signed Patient: Kimberly Tony MR#: [id number] : 1940 Acct:[id number] Age/Sex: 85 / F Date of Service: 04/25/25 Loc: ED Accession Number: [id number] Procedure: CT abdomen pelvis w con Ordering Provider: George Venegas D.O. PROCEDURE: CT ABDOMEN PELVIS W CON INDICATIONS: abd pain TECHNIQUE: After the administration of intravenous contrast, axial sections acquired from the lung bases to the pubic symphysis. Coronal and sagittal reformats were performed. For radiation dose reduction, the following was used: automated exposure control, adjustment of mA and/or kV according to patient size. COMPARISON: [facility], CT, CT ABDOMEN PELVIS WO CON, 02/20/2022, 15:15. [facility], CT, CT KIDNEY URETER BLADDER (KUB), 03/07/2022, 10:56. FINDINGS: Image quality: Diagnostic. Lower Chest: Moderate hiatal hernia. ABDOMEN: Liver: No solid mass. Gallbladder: Absent Biliary ducts: No biliary dilation. Pancreas: No ductal dilation. Spleen: Size is within normal limits. Adrenal Glands: No adrenal nodules. Kidneys and Ureters: There is a longstanding severe hydronephrosis of the right kidney, likely secondary to a UPJ obstruction. This is the only study in which intravenous contrast has been given. The renal calices and renal pelvis have thickening and a degree of enhancement. There are no other studies with contrast to identify whether not the thickening and enhancement is a chronic finding. Cannot exclude acute pyelitis. There is an extrarenal pelvis involving the left kidney. Both kidneys enhance symmetrically without an identifiable mass. Stomach and Bowel: Normal colonic caliber, without significant wall thickening. Distal ileum enters a right inguinal hernia. The distal aspect of this loop of bowel is inflamed. Closer to the cecum, the same loop has increased inflammation and has a focal area of significant thickening and edema. Peritoneum: No abnormal intraperitoneal fluid. No free air. Ventral Wall: No significant ventral hernia. Abdominal Nodes: No retroperitoneal or mesenteric adenopathy by size criteria. Vessels: Aorta and inferior vena cava are normal in size. PELVIS: Pelvic Organs: Uterus is surgically absent. No adnexal masses.. Bladder: There is impressive bladder wall thickening and luminal enhancement which was not present on previous studies and is consistent with probable acute bacterial cystitis. Pelvic Nodes: No enlarged lymph nodes. Miscellaneous: Again noted is a right inguinal hernia which contains distal ileum. Of note, there is inflammation of the ileum which begins within the hernia and extends distal to this where there is focal significant wall thickening and edema that does not appear to be caused by the hernia. Cannot exclude a short segment of ischemic bowel. Reference axial image 100 of series 2. Reference coronal image 27 of series 3. Reference coronal image 19 of series 3. Bones: No aggressive osseous abnormality. IMPRESSION: 1. Bladder findings are highly consistent with acute bacterial cystitis. 2. 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 This current study is the initial study that involves contrast. There is thickening and enhancement of the renal pelvis and hoskins of the calices. Cannot exclude acute pyelitis of the right collecting system. 3. There is a longstanding right inguinal hernia which contains distal ileum. The more distal portion of the loop of ileum within the hernia and the ileum distal to the hernia are inflamed. There is focal relatively impressive wall thickening and edema distal to the hernia. Cannot exclude a segment of focal ischemic bowel. Chest x-ray: Radiologist's Impression: [address] [address] XRay Report Signed Patient: Kimberly Tony MR#: [id number] : 1940 Acct:[id number] Age/Sex: 85 / F Date of Service: 04/25/25 Loc: ED Accession Number: [id number] Procedure: XR chest 1V Ordering Provider: George Venegas D.O. PROCEDURE: XR CHEST 1V INDICATIONS: Chest Pain TECHNIQUE: One view of the chest was acquired. COMPARISON: [facility], , CHEST 2 VIEW, 04/29/2016, 11:02. FINDINGS: Surgical changes and devices: None. Lungs and pleura: Lungs are clear. No pleural effusions or pneumothorax. Mediastinum: Mediastinal contours appear normal. Heart size is normal. Bones and chest wall: No suspicious bony lesions. Overlying soft tissues appear unremarkable. IMPRESSION: No acute cardiopulmonary pathology. MDM Narrative Medical decision making narrative: All lab work, vital signs, nurse triage note, medication list, previous ER visits, and all imaging studies reviewed. Patient given 1L LR bolusx 1, mag oxide 800, Rocephin 2g IV d/c home on macrobid rx. Differential diagnosis bladder findings consistent with acute bacterial cystitis. 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 Longstanding right inguinal hernia which contained distal ileum. The more distal portion of the loop of ileum within the hernia and the ileum distal to the hernia inflamed. There is focal relative impressive wall thickening edema distal to the hernia. Can not exclude segment focal ischemia bowel. Case d/w hernia reducible and refuses surgery. Pt will d/c home on bactrim bs rx. Discharge Plan Departure Patient Disposition: Home Clinical Impression: Acute hyponatremia, Hypomagnesemia, Infection of kidney Inguinal hernia Qualifiers: Obstruction and gangrene presence: without obstruction or gangrene Laterality: unilateral Recurrence: recurrent Qualified Code(s): K40.91 - Unilateral inguinal hernia, without obstruction or gangrene, recurrent Instructions: DI for Kidney Infection Activity Restrictions/Additional Instructions: Return with new or worsening symptoms. Keep hydrated. Follow up PCP 1-2 weeks for re-evaluation. Take your medicines as directed. Prescriptions: New sulfamethoxazole-trimethoprim [Bactrim DS] 800-160 mg tablet 1 tab PO Q12H Qty: 20 0RF No Action bupropion HCl 300 mg tablet extended release 24 hr 300 mg PO QAM Qty: 90 3RF levothyroxine 112 mcg tablet 112 mcg PO DAILY Qty: 90 3RF omeprazole 40 mg capsule,delayed release(DR/EC) 40 mg PO DAILY Qty: 90 3RF metoprolol tartrate 25 mg tablet 12.5 mg PO BID MDD 25mg Qty: 90 0RF lisinopril 10 mg tablet 10 mg PO ONCE PM Qty: 90 0RF Osphena 60 mg tablet 60 mg PO DAILY Qty: 90 3RF Rx Instructions: must administer with food, preferably a high-fat meal aspirin [Adult Low Dose Aspirin] 81 mg tablet,delayed release (DR/EC) 81 mg PO BEDTIME triamcinolone acetonide 0.1 % cream 1 applic topical Patient Comments: applies to upper extremities. Referrals: Kelsey Pham DO [Primary Care Provider, Medical] Stand Alone Forms: Patient Portal/API
--- NOTE | 2025-04-25 13:10 | DI.CT.S_ITS ---
PROCEDURE: CT ABDOMEN PELVIS W CON INDICATIONS: abd pain TECHNIQUE: After the administration of intravenous contrast, axial sections acquired from the lung bases to the pubic symphysis. Coronal and sagittal reformats were performed. For radiation dose reduction, the following was used: automated exposure control, adjustment of mA and/or kV according to patient size. COMPARISON: [facility], CT, CT ABDOMEN PELVIS WO CON, 02/20/2022, 15:15. [facility], CT, CT KIDNEY URETER BLADDER (KUB), 03/07/2022, 10:56. FINDINGS: Image quality: Diagnostic. Lower Chest: Moderate hiatal hernia. ABDOMEN: Liver: No solid mass. Gallbladder: Absent Biliary ducts: No biliary dilation. Pancreas: No ductal dilation. Spleen: Size is within normal limits. Adrenal Glands: No adrenal nodules. Kidneys and Ureters: There is a longstanding severe hydronephrosis of the right kidney, likely secondary to a UPJ obstruction. This is the only study in which intravenous contrast has been given. The renal calices and renal pelvis have thickening and a degree of enhancement. There are no other studies with contrast to identify whether not the thickening and enhancement is a chronic finding. Cannot exclude acute pyelitis. There is an extrarenal pelvis involving the left kidney. Both kidneys enhance symmetrically without an identifiable mass. Stomach and Bowel: Normal colonic caliber, without significant wall thickening. Distal ileum enters a right inguinal hernia. The distal aspect of this loop of bowel is inflamed. Closer to the cecum, the same loop has increased inflammation and has a focal area of significant thickening and edema. Peritoneum: No abnormal intraperitoneal fluid. No free air. Ventral Wall: No significant ventral hernia. Abdominal Nodes: No retroperitoneal or mesenteric adenopathy by size criteria. Vessels: Aorta and inferior vena cava are normal in size. PELVIS: Pelvic Organs: Uterus is surgically absent. No adnexal masses.. Bladder: There is impressive bladder wall thickening and luminal enhancement which was not present on previous studies and is consistent with probable acute bacterial cystitis. Pelvic Nodes: No enlarged lymph nodes. Miscellaneous: Again noted is a right inguinal hernia which contains distal ileum. Of note, there is inflammation of the ileum which begins within the hernia and extends distal to this where there is focal significant wall thickening and edema that does not appear to be caused by the hernia. Cannot exclude a short segment of ischemic bowel. Reference axial image 100 of series 2. Reference coronal image 27 of series 3. Reference coronal image 19 of series 3. Bones: No aggressive osseous abnormality. IMPRESSION: 1. Bladder findings are highly consistent with acute bacterial cystitis. 2. 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 This current study is the initial study that involves contrast. There is thickening and enhancement of the renal pelvis and hoskins of the calices. Cannot exclude acute pyelitis of the right collecting system. 3. There is a longstanding right inguinal hernia which contains distal ileum. The more distal portion of the loop of ileum within the hernia and the ileum distal to the hernia are inflamed. There is focal relatively impressive wall thickening and edema distal to the hernia. Cannot exclude a segment of focal ischemic bowel. Dictated by: Calvin Rios M.D. on 04/25/2025 at 14:36 Approved by: Calvin Rios M.D. on 04/25/2025 at 14:47
[2025-04-25 13:11] LABS: NT-proBNP (BNP-Adult 18+) 415 pg/mL (<450); Troponin I < 0.012 ng/mL (0.01-0.034)
[2025-04-25 14:06] LABS: Appearance Urine UA CLOUDY; Bilirubin Urine UA NEGATIVE (NEGATIVE); Color Urine UA YELLOW; Glucose Urine UA NEGATIVE (Negative); Ketones Urine UA TRACE (NEGATIVE); Leukocyte Esterase Urine UA 2+ (NEGATIVE); Nitrite Urine UA NEGATIVE (Negative); Occult Blood Urine UA 2+ (Negative); Protein Urine UA 2+ (Negative); Specific Gravity Urine UA 1.020 (1.000-1.035); Urobilinogen Urine UA 1.0 E.U./dL (0.2)
[2025-04-25 14:08] LABS: pH Urine UA 6.0 (4.5-8.0)
[2025-04-25 14:14] LABS: Culture Indicated Urine Specimen Cultured
--- NOTE | 2025-04-25 15:56 | PM.HP.IH.1 ---
History of Present Illness History of Present Illness Date Patient Seen: 04/25/25 Time Patient Seen: 03:15 Date of Onset of Symptoms: 04/25/25 Chief complaint: lethargy Narrative: Patient is an 85-year-old white female who presents to the emergency room after walk-in clinic for a UTI at approximately 11:30 a.m. developed a small amount of abdominal pain was sent to the emergency room states she has occasional pain in the abdomen but it is colicky in nature comes and goes she admits to nausea this morning but denies any vomiting or diarrhea states she has had a right inguinal hernia for over 5 years and it is easily reducible. Patient last ate at 9:00 a.m.. The patient underwent a workup in the emergency room showed a WBC of 7.9 hemoglobin 13.0 hematocrit is 37.4 platelets are 439,000 PT is 10.9 PTT is 28 troponin is less than 0.012 sodium is 124 potassium 4.3 chloride is 89 bicarb is 27 BUN of 11 creatinine 0.7 random blood sugar is 143 total bilirubin 0.7 AST is 39 ALT is 28 alkaline phosphatase 100 patient has cloudy urine large amount of white cells. CT scan was performed which shows small hiatal hernia absent gallbladder appendix is not visualized. Patient has an absent uterus has a right inguinal hernia which contains loops of small bowel patient is noted to have a dilated calices of the right kidney but no ureter can be traced down no signs of stricture or obstruction. The patient has degenerative joint disease. I was asked to see the patient for surgical evaluation. Allergies shellfish, amoxicillin, nitrofurantoin Medications aspirin 81 mg, bupropion, levothyroxine lisinopril, metoprolol omeprazole triamcinolone topical cream,ospemifene Past medical history: Corrective lenses, 6 para 4 miscarriage 1 ectopic 1, hypothyroidism, hypertension, degenerative joint disease history of a right inguinal hernia for greater than 4 years. Patient has a history of chronic UTIs Patient denies any other heart lungs digestive musculoskeletal neurological seizure disorder psychiatric problems risks of infectious disease HIV or AIDS. Past surgical history: Tonsils and adenoids D&C, ectopic , MIGDALIA with ovaries intact, history of an open cholecystectomy with a right ureteral surgery, history of a right ureteral stent, EGD negative, colonoscopy with polypectomy in 2020. Social history: Denies any tobacco or recreational drugs patient has 2 fernando per day Vitals: Temperature is 98.0? pulse 80 respirations 17 BP is 150/67 SaO2 is 99% on room air patient weighs 120 lb. Head is normocephalic eyes PERRLA EOMI is intact nares are clear septum midline EACs and pinnae unremarkable oropharyngeal cavity is in good repair heart regular rate and rhythm without murmurs lungs are clear to auscultation no rales or wheezes noted moderate inspiratory and expiratory effort moderate chest wall motion noted. Abdomen is soft nondistended with multiple surgical scars no signs of incisional hernias no rebound or guarding no masses or peritoneal signs. A right inguinal hernia is noted with coughing and Valsalva but easily reducible. Musculoskeletal moderate muscle tone and strength equal bilaterally no gross deficits elicited for her age. Impression: Chronic UTIs treated in the emergency room CT scan done showing right inguinal hernia nonincarcerated easily reducible History of chronic ureteral stricture with chronic infections Degenerative joint disease Hypothyroidism Hypertension Plan: Discussed with patient the findings this is easily reducible discussed with patient's surgical repair procedure risks and complications were fully explained including risk for cardiopulmonary depression infection bleeding bowel injury and reoccurrence patient understands but she refuses any surgery at this time discussed if she does desire to have surgery repaired she needs to go to [facility] and this may be done electively she understands but at this time she refuses any further surgery return if any problems questions or concerns. All questions were answered to patient's satisfaction. 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) Graves' disease Coppola's syndrome Congenital stricture of urethra Precancerous skin lesion (~2006) Giant cell arteritis Shoulder pain (2015) Cataract (2016) Colon polyps Hypertension Hypothyroidism Hayfever Tinnitus (2009) Anxiety (2014) Depression (2014) Surgical History Hx of cystoscopy (03/24/16) History of partial hysterectomy (1989) Anesthesia Hx of thyroid irradiation (1989) History of section (1969) History of cataract surgery (2014) History of abdominoplasty (1981) History of ureter repair (2013) H/O hysterectomy for benign disease (1994) History of cholecystectomy History of tonsillectomy (194) History of bilateral tubal ligation (1969) Status post tubal ligation Family History Brother Heart disease Brother Emphysema of lung Family/Other Influenza Father Heart attack Grandmother Esophageal cancer Mother Esophageal cancer Grandfather Heart attack Sister Pancreatic cancer Unknown Heart disease Smoker Grandfather No problems noted. Grandmother No problems noted. Social History marital status: household members: spouse occupational status: previously employed and other Smoking Status: Never smoker alcohol intake: current substance use type: does not use Meds Home Medications and Allergies Home Medications ?Medication ?Instructions ?Recorded ?Confirmed ?Type aspirin 81 mg tablet,delayed 81 mg PO BEDTIME 03/01/18 02/27/25 History release (Adult Low Dose Aspirin) triamcinolone acetonide 0.1 % 1 applic topical 04/01/24 02/27/25 History topical cream bupropion HCl 300 mg 24 hr tablet, 300 mg PO QAM #90 tabs 04/05/24 02/27/25 Rx extended release levothyroxine 112 mcg tablet 112 mcg PO DAILY #90 tabs 06/27/24 02/27/25 Rx omeprazole 40 mg capsule,delayed 40 mg PO DAILY #90 caps 10/19/24 02/27/25 Rx release lisinopril 10 mg tablet 10 mg PO ONCE PM #90 tabs 11/17/24 02/27/25 Rx metoprolol tartrate 25 mg tablet 12.5 mg (1/2 x 25 mg) PO BID #90 11/17/24 02/27/25 Rx tabs ospemifene 60 mg tablet (Osphena) 60 mg PO DAILY #90 tabs 12/02/24 02/27/25 Rx sulfamethoxazole 800 1 tab PO Q12H #20 tabs 04/25/25 Rx mg-trimethoprim 160 mg tablet (Bactrim DS) Allergies Allergy/AdvReac Type Severity Reaction Status Date / Time shellfish derived Allergy Severe MUSSELS - Verified 04/25/25 12:37 ANAPHYLAXIS amoxicillin Allergy Mild RASH, Verified 04/25/25 12:37 DIARRHEA nitrofurantoin AdvReac Severe diarrhea,vomiting, Verified 04/25/25 12:37 rectal bleeding Exam Vital Signs (past 8 hours): - 04/25/25 12:37 Temperature 98 F Pulse Rate 80 Respiratory Rate 17 Blood Pressure 150/67 H Pulse Oximetry 99 Oxygen Delivery Method Room Air Oxygen Delivery Method Room Air Objective Labs 04/25/25 12:30 04/25/25 12:30 Labs: Laboratory Results - last 24 hr 04/25/25 04/25/25 12:30 13:49 WBC 7.9 RBC 3.75 L Hgb 13.0 Hct 37.4 MCV 99.8 MCH 34.7 H MCHC 34.8 RDW 13.4 Plt Count 439 H Neut % (Auto) 67.1 Lymph % (Auto) 12.3 L [place] % (Auto) 19.1 H Eos % (Auto) 1.0 L Baso % (Auto) 0.5 Neut # (Auto) 5300 Lymph # (Auto) 1000 L [place] # (Auto) 1500 H Eos # (Auto) 100 Baso # (Auto) 0 PT 10.9 INR 1.0 APTT 28 Sodium 124 L Potassium 4.3 Chloride 89 L Carbon Dioxide 27 BUN 11 Creatinine 0.70 Estimated GFR > 60 BUN/Creatinine Ratio 15.7 Glucose 143 H Calcium 9.3 Magnesium 1.5 L Total Bilirubin 0.7 AST 39 H ALT 28 Alkaline Phosphatase 100 Total Creatine Kinase 38 Troponin I < 0.012 NT-Pro-B Natriuret Pep 415 Total Protein 7.6 Albumin 3.9 Globulin 3.7 Albumin/Globulin Ratio 1.1 Lipase 171 Urine Color Yellow Urine Appearance Cloudy Urine pH 6.0 Ur Specific [place] 1.020 Urine Protein 2+ H Urine Glucose (UA) Negative Urine Ketones Trace H Urine Occult Blood 2+ H Urine Nitrate Negative Urine Bilirubin Negative Urine Urobilinogen 1.0 Ur Leukocyte Esterase 2+ H Urine RBC 10-30/hpf H Urine WBC 30-100/hpf H Ur Squamous Epith Cells 0-1 /hpf Urine Bacteria Many (>30) H Ur Culture Indicated? Specimen cultured Vol Urine Centrifuged 10ml (spun) Assessment & Plan Time-Based Coding :: [TOTAL MINUTES] spent with patient and on the chart (including review of chart, obtaining history, exam, reviewing outside data, placing orders, documenting exam and treatment plan, and counseling patient) on [DATE]. PROFEE Book [employer]immer Document charge(s): Yes
[2025-04-25] MEDS: cefTRIAXone 2,000 MG in SODIUM CHLORIDE 0.9% 100 ML 200 MG IV (15:57)
[2025-04-25] MEDS: MAGNESIUM OXIDE 400 MG TABLET 800 MG PO (16:37)
== END 2025-04-25 17:24 | disposition home or self-care (01) ==
PROVIDERS: Emergency Provider Family Medicine; PCP Family Medicine
DX: E87.1 Hypo-osmolality and hyponatremia (principal); R55 Syncope and collapse; E83.42 Hypomagnesemia; K40.91 Unilateral inguinal hernia, without obstruction or gangrene, recurrent; N13.6 Pyonephrosis; I10 Essential (primary) hypertension
CPT/HCPCS: 36415; 70450; 70496; 70498; 71045; 74177; 80053; 81001; 82550; 83690; 83735; 83880; 84484; 85025; 85610; 85730; 87077; 87086; 87147; 87186; 93005; 96365; 99284; J0696; Q9967